=== PATIENT | female | born 1945 | race Caucasian/White ===

== ENCOUNTER 2023-12-03 15:03 | Outpatient (AMB) | payer MEDICARE, SELFPAY ==
--- NOTE | 2023-12-03 15:23 | MHC.PC.OV ---
Vital Signs 12/03/23 15:25 Height 5 ft 2.5 in Weight 141 lb 8 oz BMI 25.5 BP 144/72 H Blood Pressure Location Lt brachial Position Sitting Pulse 62 Pulse Source Pulse Oximeter Intake Visit Reasons: BRIANNA from [facility] Intake Note: Patient is here as a transfer from [facility]. Allergies penicillin V Allergy (Unknown, Verified 12/03/23 15:28) unknown Tobacco use date assessed: 12/03/23 Fall risk assessment: No Falls in past year Last assessed Fall Risk: 12/03/23 Dental Screening Dental Screen Date: 12/03/23 Did you have a dental visit in the last 12 months?: Yes Did you have a dental problem in the last 6 months where you did not have access to dental care?: No Was dental information given to patient?: Patient has dentist HPI HPI Comments History of Present Illness Details This is a 77-year-old female with a past medical history of hypertension, hyperlipidemia, type 2 diabetes, paroxysmal atrial fibrillation, GERD and anemia presenting to transfer from my practice at [facility]. At her visit on 09/20/2023 at [facility] we discussed pressure and tension on the right side of her neck radiating to the back of her head that started 3-4 months ago. Heat helped. She also described as a whooshing sound in her ear for just that week. This has since resolved, but because of her symptoms a CTA of the head and neck was ordered. CT angio head and neck completed 10/18/2023 showed no cut off of the major branches of the intracranial arteries. There are focal areas of moderate to severe stenosis at the A2 segment of the left BRIT and moderate stenosis at the right P1-P2 junction. There was no significant internal carotid artery stenosis or vertebral artery stenosis. Multilevel cervical spondylosis was noted which explains her symptoms. She is taking tizanidine as needed at night which helps. Type 2 diabetes is treated with Glipizide and metformin. Her last hemoglobin A1c in September was 6.5%. She has annual eye exams at [facility]. Cardiovascular- followed by Dr. Acuña for atrial fibrillation. She has seen Dr. Lovell in the past for PVD. Denies palpitations, chest pain or shortness of breath. Her current regimen is amlodipine, Eliquis, atenolol, lisinopril, pravastatin. GERD is treated by Dr. Seo. She is up-to-date with colonoscopy and EGD. On her last scope they found a small erosion which they believe was contributing to anemia. It was not actively bleeding. She takes omeprazole. She avoids NSAIDs. She is on vitamin B12 injections. She is due to check her B12 level. Overactive bladder is treated with Myrbetriq. She has seen Dr. Omar bruce for this. She has osteoarthritis in her knees. She had a left knee replacement with Dr. Chaidez. ROS: Constitutional: No unexplained weight loss, fever, chills, fatigue or night sweats. Eyes: No vision changes, blurry vision, double vision Respiratory: No shortness of breath, cough or sputum production. Cardiovascular: No chest pain, chest pressure or chest discomfort. No palpitations. +stable lower extremity edema-wears compression stockings. Gastrointestinal: No anorexia, nausea, vomiting or diarrhea. No abdominal pain or blood in stool. Neurologic: No headache, dizziness, syncope Physical exam: Constitutional: Alert, in no distress. Head: Normocephalic. Eyes: Pupils are equal, round and reactive to light. Neck: Supple, Full range of motion. No lymphadenopathy. Respiratory: Clear to auscultation. Cardiovascular: S1 S2 regular. Systolic murmur. Extremities: Warm and well perfused. No clubbing, cyanosis or edema. Bilateral 1+ lower extremity edema. [facility] Medical History (Updated 12/03/23 @ 16:46 by MARIELENA Wbeer) PVD (peripheral vascular disease) Atherosclerosis Vitamin B12 deficiency Controlled type 2 diabetes mellitus Paroxysmal atrial fibrillation Overactive bladder Essential hypertension Pure hypercholesterolemia Heart murmur Chronic GERD Cervical spondylosis Anemia Cataract T/A hypertrophy Headache Incontinence Gastrointestinal disorder Diabetes Afib Heart disease Palpitations High blood pressure Surgical History (Updated 12/03/23 @ 16:41 by MARIELENA Weber) History of cardiac radiofrequency ablation History of left knee replacement H/O colonoscopy H/O: hysterectomy H/O vitrectomy H/O tubal ligation Family History (Updated 12/03/23 @ 15:38 by Catherine Monsivais CMA) Maternal Grandmother Breast cancer Brother Breast cancer Social History (Updated 12/03/23 @ 15:43 by Catherine Monsivais CMA) Household Members: Spouse Both parents involved: No Caregiver staying overnight: No Housing: House Are you a primary acute care nurse practitioner to a significant other at home: No Do you presently have visiting nurse or other home services: No 75 years or older and lives alone: No Alcohol intake: current Alcohol intake frequency: holidays/special occasions only Patient Tobacco Use Status: Never used Tobacco e-Cigarette/Vaping Use: Never Used service: No Current occupational status: retired Cognitive needs: No Hearing needs: No Vision needs: No Questionnaire PHQ-9 Over the last 2 weeks, how often have you been bothered by any of the following problems? 1. Little interest or pleasure in doing things: not at all 2. Feeling down, depressed, or hopeless: not at all 3. Trouble falling or staying asleep, or sleeping too much: not at all 4. Feeling tired or having little energy: more than half the days 5. Poor appetite or overeating: several days 6. Feeling bad about yourself - or that you are a failure or have let yourself or your family down: several days 7. Trouble concentrating on things, such as reading the newspaper or watching television: not at all 8. Moving or speaking so slowly that other people could have noticed. Or the opposite - being so fidgety or restless that you have been moving around a lot more than usual: not at all 9. Thoughts that you would be better off or of hurting yourself in some way: not at all Total score: 4 Depression Screening Interpretation: Negative Depression Screening Done: Yes Source: Developed by Drs. Ottoniel Duran, Elana Young, Pierre Garsia and colleagues, with an educational moises from [employer]. Thrive Questionnaire Date Thrive assessed: 12/03/23 I am a: Patient What is your living situation today?: I have a steady place to live Within the past 12 months, did the food you bought not last and you didn't have the money to get more?: Never true Within the past 12 months, did you worry whether your food would run out before you got money to buy more?: Never true Do you have trouble paying for medicines?: No Do you have trouble getting transportation to medical appointments?: No Do you have trouble paying your heating and electricity bill?: No Do you have trouble taking care of your child, family member or friend?: No Do you have trouble with day-to-day activities such as bathing, preparing meals, shopping, managing finances, etc.?: No Are you currently unemployed and looking for a job?: No Are you interested in more education?: No THRIVE Score: 0 LUIS-7 AMB Questionnaire LUIS-7 Date LUIS - 7 assessed: 12/03/23 Feeling nervous, anxious, or on edge: 0 = Not at all Not being able to stop or control worryin = Not at all Worrying too much about different things: 0 = Not at all Trouble relaxin = Not at all Being so restless that it is hard to sit still: 0 = Not at all Becoming easily annoyed or irritable: 0 = Not at all Feeling afraid as if something awful might happen: 0 = Not at all Total LUIS-7 score (0-4 normal; 5-9 mild; 10-14 moderate; 15-21 severe): 0 Source: Developed by Drs. Ottoniel Duran, Elana Young, Pierre Garsia and colleagues, with an educational moises from [employer]. Physical exam (Primary Care) Vital Signs: Last Vital Signs Pulse 62 12/03/23 15:25 BP 144/72 H 12/03/23 15:25 BMI result Body Mass Index 25.5 Tobacco/Smoking Status: Tobacco use Status Tobacco use date assessed 12/03/23 12/03/23 15:48 Patient Tobacco Use Status Never used Tobacco 12/03/23 15:48 e-Cigarette/Vaping Use Never Used 12/03/23 15:48 PHQ-9: PHQ-9 Score PHQ-9: Total score 4 12/03/23 15:48 Depression Screening Interpretation: Negative Thrive Assessment: Date of Thrive Assessment Date Thrive assessed 12/03/23 12/03/23 15:48 Assessment and Plan Assessment & Plan (1) Atherosclerosis: Comment: There are focal areas of moderate to severe stenosis at the A2 segment of the left BRIT and moderate stenosis at the right P1-P2 junctio on CTA 10/18/23 Code(s): I70.90 - Unspecified atherosclerosis (2) Vitamin B12 deficiency: Code(s): E53.8 - Deficiency of other specified B group vitamins (3) Controlled type 2 diabetes mellitus: Code(s): E11.9 - Type 2 diabetes mellitus without complications Qualifiers: Diabetes mellitus alf insulin use: without adjunct faculty for medical terminology use Diabetes mellitus complication status: with circulatory complication Diabetes mellitus complication detail: with other circulatory complications Qualified Code(s): E11.59 - Type 2 diabetes mellitus with other circulatory complications (4) Paroxysmal atrial fibrillation: Code(s): I48.0 - Paroxysmal atrial fibrillation (5) Essential hypertension: Code(s): I10 - Essential (primary) hypertension (6) Pure hypercholesterolemia: Code(s): E78.00 - Pure hypercholesterolemia, unspecified (7) Anemia: Code(s): D64.9 - Anemia, unspecified Qualifiers: Anemia type: B12 deficiency Vitamin B12 deficiency anemia type: other B12 deficiency Qualified Code(s): D51.8 - Other vitamin B12 deficiency anemias Plan Offered physical therapy for cervical spondylosis and neck stiffness. Declined for now. She can apply heat and do home stretches. Tizanidine okay as needed. Do not drive or operate heavy machinery on muscle relaxant. Continue current medications. BP is elevated in office. At home today it was 132/71. She has white coat HTN. Return for fasting labs in 2 weeks. Check B12 level at this time and continue injections. Will refer back to Dr. Lovell for PVD and for atherosclerosis seen on recent CTA though I suspect medical management will be recommended over invasive procedure. Follow up in 4 months. Orders: Orders Lipid Panel Today D51.8 - Other vitamin B12 deficiency anemias, E11.59 - Type 2 diabetes mellitus with other circulatory complications, E53.8 - Deficiency of other specified B group vitamins, E78.00 - Pure hypercholesterolemia, unspecified, I10 - Essential (primary) hypertension, I70.90 - Unspecified atherosclerosis, I73.9 - Peripheral vascular disease, unspecified Hemoglobin A1c Today D51.8 - Other vitamin B12 deficiency anemias, E11.59 - Type 2 diabetes mellitus with other circulatory complications, E53.8 - Deficiency of other specified B group vitamins, E78.00 - Pure hypercholesterolemia, unspecified, I10 - Essential (primary) hypertension, I70.90 - Unspecified atherosclerosis, I73.9 - Peripheral vascular disease, unspecified Complete Blood Count no Diff Today D51.8 - Other vitamin B12 deficiency anemias, E11.59 - Type 2 diabetes mellitus with other circulatory complications, E53.8 - Deficiency of other specified B group vitamins, E78.00 - Pure hypercholesterolemia, unspecified, I10 - Essential (primary) hypertension, I70.90 - Unspecified atherosclerosis, I73.9 - Peripheral vascular disease, unspecified Vitamin B12 Today D51.8 - Other vitamin B12 deficiency anemias, E11.59 - Type 2 diabetes mellitus with other circulatory complications, E53.8 - Deficiency of other specified B group vitamins, E78.00 - Pure hypercholesterolemia, unspecified, I10 - Essential (primary) hypertension, I70.90 - Unspecified atherosclerosis, I73.9 - Peripheral vascular disease, unspecified Comprehensive Met. Panel Today D51.8 - Other vitamin B12 deficiency anemias, E11.59 - Type 2 diabetes mellitus with other circulatory complications, E53.8 - Deficiency of other specified B group vitamins, E78.00 - Pure hypercholesterolemia, unspecified, I10 - Essential (primary) hypertension, I70.90 - Unspecified atherosclerosis, I73.9 - Peripheral vascular disease, unspecified Referrals Cardiology Referral D51.8 - Other vitamin B12 deficiency anemias, E11.59 - Type 2 diabetes mellitus with other circulatory complications, E53.8 - Deficiency of other specified B group vitamins, E78.00 - Pure hypercholesterolemia, unspecified, I10 - Essential (primary) hypertension, I70.90 - Unspecified atherosclerosis, I73.9 - Peripheral vascular disease, unspecified Coding Level of Care Code Est Pt Level 4 (02235) Complex EM visit Add On G2211 Diagnoses Atherosclerosis I70.90 Vitamin B12 deficiency E53.8 Controlled type 2 diabetes mellitus with other circulatory complication, without long-term current use of insulin E11.59 Diabetes mellitus adjunct faculty for medical terminology insulin use: without alf use Diabetes mellitus complication status: with circulatory complication Diabetes mellitus complication detail: with other circulatory complications Paroxysmal atrial fibrillation I48.0 Essential hypertension I10 Pure hypercholesterolemia E78.00 Other vitamin B12 deficiency anemia D51.8 Anemia type: B12 deficiency Vitamin B12 deficiency anemia type: other B12 deficiency
[2023-12-03 15:25] VITALS: BP 144/72; PULSE 62; BMI 25.5
== END 2023-12-03 16:18 | disposition home or self-care (01) ==
PROVIDERS: PCP Physician Assistant Medical; Visit Provider Physician Assistant Medical
DX: I70.90 Unspecified atherosclerosis (principal); E53.8 Deficiency of other specified B group vitamins; E11.59 Type 2 diabetes mellitus with other circulatory complications; I48.0 Paroxysmal atrial fibrillation; I10 Essential (primary) hypertension; E78.00 Pure hypercholesterolemia, unspecified; D51.8 Other vitamin B12 deficiency anemias
CPT/HCPCS: 99214; G2211

== ENCOUNTER 2024-04-03 09:12 | Outpatient (AMB) | payer MEDICARE, SELFPAY ==
--- NOTE | 2024-04-03 09:30 | A.OFFPC_ITS ---
Vital Signs 04/03/24 09:34 Height 5 ft 2.5 in Weight 137 lb 6 oz BMI 24.7 BP 120/64 Blood Pressure Location Rt brachial Position Sitting Respiration 14 Pulse 73 Pulse Source Pulse Oximeter Pulse Oximetry (%) 95 Oxygen Delivery Method Room Air Intake Visit Reasons: Diabetes f/u Intake Note: f/u dm Allergies ciprofloxacin Allergy (Severe, Verified 04/03/24 09:32) Unresponsive penicillin V Allergy (Unknown, Verified 04/03/24 09:32) Rash Tobacco use date assessed: 12/03/23 Dental Screening Dental Screen Date: 12/03/23 HPI HPI Comments History of Present Illness Details This is a 78-year-old female with a past medical history of hypertension, hyperlipidemia, type 2 diabetes, paroxysmal atrial fibrillation, GERD and anemia presenting for follow up. She is accompanied by her . She called the office for a referral to [facility] after she fell on 03/23/2024 fracturing her right foot and her left finger. Her hand is casted now. They said she will not need surgery for her finger fracture, but she will need physical therapy once the cast is removed. She is having a CT scan of her foot next week for further evaluation. Type 2 diabetes is treated with Glipizide and metformin. Her last hemoglobin A1c in September was 6.5%. She has annual eye exams at [facility]. She had blood work at [facility] this Sunday, but the results are not available yet. Cardiovascular- followed by Dr. Acuña for atrial fibrillation. She sees Dr. Lovell for PVD. She endorses occasional palpitations brought on by stress. No chest pain or syncope. Her current regimen is amlodipine, Eliquis, atenolol, lisinopril, pravastatin. GERD is treated by Dr. Maldonado. She is up-to-date with colonoscopy and EGD. On her last scope they found a small erosion which they believe was contributing to anemia. It was not actively bleeding. She takes omeprazole. She avoids NSAIDs. She is on B12 supplementation. Overactive bladder is treated with Myrbetriq. She has seen Dr. Monae for this. She has osteoarthritis in her knees. She had a left knee replacement with Dr. Chaidez. ROS: Constitutional: No unexplained weight loss, fever, chills, fatigue or night sweats. Eyes: No vision changes, blurry vision, double vision Respiratory: No shortness of breath, cough or sputum production. Cardiovascular: No chest pain, chest pressure or chest discomfort.+stable lower extremity edema-wears compression stockings. Gastrointestinal: No anorexia, nausea, vomiting or diarrhea. No abdominal pain or blood in stool. Neurologic: No headache, dizziness, syncope Physical exam: Constitutional: Alert, in no distress. Head: Normocephalic. Eyes: Pupils are equal, round and reactive to light. Neck: Supple, Full range of motion. No lymphadenopathy. Respiratory: Clear to auscultation. Cardiovascular: S1 S2 regular. Systolic murmur. Extremities: Warm and well perfused. No clubbing, cyanosis or edema. Bilateral 1+ lower extremity edema. Left hand is casted. [facility] Medical History (Updated 12/03/23 @ 16:46 by MARIELENA Weber) PVD (peripheral vascular disease) Atherosclerosis Vitamin B12 deficiency Controlled type 2 diabetes mellitus Paroxysmal atrial fibrillation Overactive bladder Essential hypertension Pure hypercholesterolemia Heart murmur Chronic GERD Cervical spondylosis Anemia Cataract T/A hypertrophy Headache Incontinence Gastrointestinal disorder Diabetes Afib Heart disease Palpitations High blood pressure Surgical History (Updated 12/03/23 @ 16:41 by MARIELENA Weber) History of cardiac radiofrequency ablation History of left knee replacement H/O colonoscopy H/O: hysterectomy H/O vitrectomy H/O tubal ligation Family History (Updated 12/03/23 @ 15:38 by Catherine Monsivais CMA) Maternal Grandmother Breast cancer Brother Breast cancer Social History (Updated 12/03/23 @ 15:43 by Catherine Monsivais [facility]) Household Members: Spouse Both parents involved: No Caregiver staying overnight: No Housing: House Are you a primary care program director to a significant other at home: No Do you presently have visiting nurse or other home services: No 75 years or older and lives alone: No Alcohol intake: current Alcohol intake frequency: holidays/special occasions only Patient Tobacco Use Status: Never used Tobacco e-Cigarette/Vaping Use: Never Used service: No Current occupational status: retired Cognitive needs: No Hearing needs: No Vision needs: No Questionnaire PHQ-9 Over the last 2 weeks, how often have you been bothered by any of the following problems? 1. Little interest or pleasure in doing things: not at all 2. Feeling down, depressed, or hopeless: not at all 3. Trouble falling or staying asleep, or sleeping too much: not at all 4. Feeling tired or having little energy: not at all 5. Poor appetite or overeating: not at all 6. Feeling bad about yourself - or that you are a failure or have let yourself or your family down: not at all 7. Trouble concentrating on things, such as reading the newspaper or watching television: not at all 8. Moving or speaking so slowly that other people could have noticed. Or the opposite - being so fidgety or restless that you have been moving around a lot more than usual: not at all 9. Thoughts that you would be better off or of hurting yourself in some way: not at all Total score: 0 Source: Developed by Drs. Ottoniel Duran, Elana Young, Pierre Garsia and colleagues, with an educational moises from [employer]. Thrive Questionnaire Date Thrive assessed: 12/03/23 I am a: Patient What is your living situation today?: I have a steady place to live Within the past 12 months, did the food you bought not last and you didn't have the money to get more?: I choose not to answer this question Within the past 12 months, did you worry whether your food would run out before you got money to buy more?: I choose not to answer this question Do you have trouble paying for medicines?: No Do you have trouble getting transportation to medical appointments?: No Do you have trouble paying your heating and electricity bill?: I choose not to answer this question Do you have trouble taking care of your child, family member or friend?: No Do you have trouble with day-to-day activities such as bathing, preparing meals, shopping, managing finances, etc.?: No Are you currently unemployed and looking for a job?: No Are you interested in more education?: No Please select the resources that you would like help with: None Currently or been in a relationship where the following occur: No concerns reported THRIVE Score: 0 AUDIT C Alcohol Use Questionnaire (AUDIT-C) 1. How often do you have a drink containing alcohol?: Never Total Score: 0 LUIS-7 AMB Questionnaire LUIS-7 Date LUIS - 7 assessed: 12/03/23 Feeling nervous, anxious, or on edge: 0 = Not at all Not being able to stop or control worryin = Not at all Worrying too much about different things: 0 = Not at all Trouble relaxin = Not at all Being so restless that it is hard to sit still: 0 = Not at all Becoming easily annoyed or irritable: 0 = Not at all Feeling afraid as if something awful might happen: 0 = Not at all Total LUIS-7 score (0-4 normal; 5-9 mild; 10-14 moderate; 15-21 severe): 0 Source: Developed by Drs. Ottoniel Duran, Elana Young, Pierre Garsia and colleagues, with an educational moises from [employer]. Physical exam (Primary Care) Vital Signs: Last Vital Signs Pulse 73 04/03/24 09:34 Resp 14 04/03/24 09:34 BP 120/64 04/03/24 09:34 Pulse Ox 95 04/03/24 09:34 Oxygen Delivery Method Room Air 04/03/24 09:34 BMI result Body Mass Index 24.7 Tobacco/Smoking Status: Tobacco use Status Tobacco use date assessed 12/03/23 04/03/24 09:30 Patient Tobacco Use Status Never used Tobacco 04/03/24 09:30 e-Cigarette/Vaping Use Never Used 04/03/24 09:30 PHQ-9: PHQ-9 Score PHQ-9: Total score 0 04/03/24 09:46 Thrive Assessment: Date of Thrive Assessment Date Thrive assessed 12/03/23 04/03/24 09:30 Currently or been in a relationship where the following occur: No concerns reported Coding Level of Care Code Est Pt Level 4 (21801) Complex EM visit Add On G2211 Diagnoses Atherosclerosis I70.90 Vitamin B12 deficiency E53.8 Controlled type 2 diabetes mellitus with other circulatory complication, without long-term current use of insulin E11.59 Diabetes mellitus emt intermediate insulin use: without emt intermediate use Diabetes mellitus complication status: with circulatory complication Diabetes mellitus complication detail: with other circulatory complications Paroxysmal atrial fibrillation I48.0 Overactive bladder N32.81 Essential hypertension I10 Pure hypercholesterolemia E78.00 Chronic GERD K21.9 Other vitamin B12 deficiency anemia D51.8 Anemia type: B12 deficiency Vitamin B12 deficiency anemia type: other B12 deficiency Assessment & Plan Assessment & Plan (1) Atherosclerosis: Comment: There are focal areas of moderate to severe stenosis at the A2 segment of the left BRIT and moderate stenosis at the right P1-P2 junctio on CTA 10/18/23 Code(s): I70.90 - Unspecified atherosclerosis Category: Medical (2) Vitamin B12 deficiency: Code(s): E53.8 - Deficiency of other specified B group vitamins Category: Medical Plan: Continue B12. (3) Controlled type 2 diabetes mellitus: Code(s): E11.9 - Type 2 diabetes mellitus without complications Category: Medical Qualifiers: Diabetes mellitus emt intermediate insulin use: without prison use Diabetes mellitus complication status: with circulatory complication Diabetes mellitus complication detail: with other circulatory complications Qualified Code(s): E11.59 - Type 2 diabetes mellitus with other circulatory complications Plan: Awaiting lab results. Continue glipizide and metformin. (4) Paroxysmal atrial fibrillation: Code(s): I48.0 - Paroxysmal atrial fibrillation Category: Medical Plan: Followed by Cardiology. Anticoagulated on Eliquis. (5) Overactive bladder: Code(s): N32.81 - Overactive bladder Category: Medical Plan: Continue Myrbetriq. Avoid caffeine. (6) Essential hypertension: Code(s): I10 - Essential (primary) hypertension Category: Medical Plan: Controlled. Continue current medication regimen and low-sodium diet. (7) Pure hypercholesterolemia: Code(s): E78.00 - Pure hypercholesterolemia, unspecified Category: Medical Plan: Awaiting results of recent blood work. Patient on statin. Would like her to consider switching to rosuvastatin or atorvastatin given atherosclerotic vascular disease. (8) Chronic GERD: Code(s): K21.9 - Gastro-esophageal reflux disease without esophagitis Category: Medical Plan: Continue omeprazole 20 mg daily. Dietary recommendations reviewed. Avoid NSAIDs. (9) Anemia: Code(s): D64.9 - Anemia, unspecified Category: Medical Qualifiers: Anemia type: B12 deficiency Vitamin B12 deficiency anemia type: other B12 deficiency Qualified Code(s): D51.8 - Other vitamin B12 deficiency anemias Plan: Monitor. Lab results requested. Continue B12 supplementation. Plan Follow up in 3 months for diabetes. Medications: New glipizide ER 2.5 mg PO DAILY 90 tabs 3RF
[2024-04-03 09:34] VITALS: BP 120/64; PULSE 73; RESP 14; O2SAT 95; BMI 24.7
== END 2024-04-03 12:08 | disposition home or self-care (01) ==
PROVIDERS: PCP Physician Assistant Medical; Visit Provider Physician Assistant Medical
DX: E11.59 Type 2 diabetes mellitus with other circulatory complications (principal); I48.0 Paroxysmal atrial fibrillation; I70.90 Unspecified atherosclerosis; E53.8 Deficiency of other specified B group vitamins; N32.81 Overactive bladder; I10 Essential (primary) hypertension; E78.00 Pure hypercholesterolemia, unspecified; K21.9 Gastro-esophageal reflux disease without esophagitis; D51.8 Other vitamin B12 deficiency anemias

== ENCOUNTER → 2024-04-03 09:12 | Outpatient (BNVA) | payer MEDICARE, SELFPAY | PROVIDERS: PCP Physician Assistant Medical; Visit Provider Physician Assistant Medical | DX: E11.59 Type 2 diabetes mellitus with other circulatory complications (principal); I70.90 Unspecified atherosclerosis; D51.8 Other vitamin B12 deficiency anemias; I10 Essential (primary) hypertension; E78.5 Hyperlipidemia, unspecified; I48.0 Paroxysmal atrial fibrillation; I73.9 Peripheral vascular disease, unspecified; K21.9 Gastro-esophageal reflux disease without esophagitis; N32.81 Overactive bladder; Z79.84 Long term (current) use of oral hypoglycemic drugs; Z79.899 Other long term (current) drug therapy; E78.00 Pure hypercholesterolemia, unspecified | CPT/HCPCS: 96127; 99212 ==

== ENCOUNTER 2024-07-10 09:55 | Outpatient (AMB) | payer MEDICARE, SELFPAY ==
--- NOTE | 2024-07-10 10:21 | MHC.PC.OV ---
Vital Signs 07/10/24 10:26 Height 5 ft 2.5 in Weight 137 lb 2 oz BMI 24.7 BP 138/74 Blood Pressure Location Rt brachial Position Sitting Respiration 14 Pulse 63 Pulse Source Pulse Oximeter Pulse Oximetry (%) 98 Oxygen Delivery Method Room Air Intake Visit Reasons: f/u HTN Intake Note: Follow up HTN. 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 She is accompanied by her . She finished physical therapy after fracturing her left finger. The CT scan of her right foot did not demonstrate any fracture so she did not end up needing surgery. Type 2 diabetes is treated with Glipizide and metformin. Her last hemoglobin A1c in 04/09/2024 was 7.5% so we increased her dose of glipizide. Denies hypoglycemia.. She has annual eye exams at [facility]. She will have blood work done today. Cardiovascular- followed by Dr. Acuña for atrial fibrillation. She sees Dr. Lovell for PVD. No chest pain, recent palpitations or syncope. Her current regimen is amlodipine, Eliquis, atenolol, lisinopril, pravastatin. GERD is treated by Dr. Maldonado. She is up-to-date with colonoscopy and EGD. On her last scope they found a small erosion which they believe was contributing to anemia. It was not actively bleeding. She takes omeprazole. She avoids NSAIDs. She restarted an oral B12 supplement a month ago. Overactive bladder is treated with Myrbetriq. She has seen Dr. Monae for this. He has ordered an ultrasound due to one episode of dark colored urine. She is planning to have this done. She has osteoarthritis in her knees. She had a left knee replacement with Dr. Chaidez. I recommended a high dose flu vaccine. ROS: Constitutional: No unexplained weight loss, fever, chills, fatigue or night sweats. Eyes: No vision changes, blurry vision, double vision Respiratory: No shortness of breath, cough or sputum production. Cardiovascular: No chest pain, chest pressure or chest discomfort.+stable lower extremity edema-wears compression stockings. Gastrointestinal: No anorexia, nausea, vomiting or diarrhea. No abdominal pain or blood in stool. Neurologic: No headache, dizziness, syncope Physical exam: Constitutional: Alert, in no distress. Head: Normocephalic. Eyes: Pupils are equal, round and reactive to light. Neck: Supple, Full range of motion. No lymphadenopathy. Respiratory: Clear to auscultation. Cardiovascular: S1 S2 regular. Systolic murmur. Extremities: Warm and well perfused. [facility] Medical History (Updated 12/03/23 @ 16:46 by MARIELENA Weber) PVD (peripheral vascular disease) Atherosclerosis Vitamin B12 deficiency Controlled type 2 diabetes mellitus Paroxysmal atrial fibrillation Overactive bladder Essential hypertension Pure hypercholesterolemia Heart murmur Chronic GERD Cervical spondylosis Anemia Cataract T/A hypertrophy Headache Incontinence Gastrointestinal disorder Diabetes Afib Heart disease Palpitations High blood pressure Surgical History History of cardiac radiofrequency ablation History of left knee replacement H/O colonoscopy H/O: hysterectomy H/O vitrectomy H/O tubal ligation Family History Maternal Grandmother Breast cancer Brother Breast cancer Social History (Updated 07/10/24 @ 10:28 by Myrtle Desai CMA) Household Members: Spouse Housing: House Are you a primary child caregiver private home to a significant other at home: No Do you presently have visiting nurse or other home services: No Alcohol intake: current Alcohol intake frequency: holidays/special occasions only Patient Tobacco Use Status: Never used Tobacco e-Cigarette/Vaping Use: Never Used service: No Current occupational status: retired Cognitive needs: No Hearing needs: No Vision needs: No Questionnaire Thrive Questionnaire Date Thrive assessed: 07/03/24 I am a: Patient What is your living situation today?: I choose not to answer this question Within the past 12 months, did the food you bought not last and you didn't have the money to get more?: I choose not to answer this question Within the past 12 months, did you worry whether your food would run out before you got money to buy more?: I choose not to answer this question Do you have trouble paying for medicines?: I choose not to answer this question Do you have trouble getting transportation to medical appointments?: I choose not to answer this question Do you have trouble paying your heating and electricity bill?: I choose not to answer this question Do you have trouble taking care of your child, family member or friend?: I choose not to answer this question Do you have trouble with day-to-day activities such as bathing, preparing meals, shopping, managing finances, etc.?: I choose not to answer this question Are you currently unemployed and looking for a job?: I choose not to answer this question Are you interested in more education?: No Please select the resources that you would like help with: None Currently or been in a relationship where the following occur: I choose not to answer THRIVE Score: 0 AUDIT C Alcohol Use Questionnaire (AUDIT-C) 1. How often do you have a drink containing alcohol?: Never Total Score: 0 LUIS-7 AMB Questionnaire LUIS-7 Date LUIS - 7 assessed: 12/03/23 Feeling nervous, anxious, or on edge: 0 = Not at all Not being able to stop or control worryin = Not at all Worrying too much about different things: 0 = Not at all Trouble relaxin = Not at all Being so restless that it is hard to sit still: 0 = Not at all Becoming easily annoyed or irritable: 0 = Not at all Feeling afraid as if something awful might happen: 0 = Not at all Total LUIS-7 score (0-4 normal; 5-9 mild; 10-14 moderate; 15-21 severe): 0 Source: Developed by Drs. Ottoniel Duran, Elana Young, Pierre Garsia and colleagues, with an educational moises from [employer]. Physical exam (Primary Care) Vital Signs: Last Vital Signs Pulse 63 07/10/24 10:26 Resp 14 07/10/24 10:26 BP 138/74 07/10/24 10:26 Pulse Ox 98 07/10/24 10:26 Oxygen Delivery Method Room Air 07/10/24 10:26 BMI result Body Mass Index 24.7 Tobacco/Smoking Status: Tobacco use Status Tobacco use date assessed 12/03/23 07/10/24 10:28 Patient Tobacco Use Status Never used Tobacco 07/10/24 10:28 e-Cigarette/Vaping Use Never Used 07/10/24 10:28 Thrive Assessment: Date of Thrive Assessment Date Thrive assessed 07/03/24 07/10/24 10:28 Currently or been in a relationship where the following occur: I choose not to answer Coding Level of Care Code Est Pt Level 4 (78529) Complex EM visit Add On G2211 Diagnoses Atherosclerosis I70.90 Vitamin B12 deficiency E53.8 Controlled type 2 diabetes mellitus with other circulatory complication, without long-term current use of insulin E11.59 Diabetes mellitus complication detail: with other circulatory complications Diabetes mellitus complication status: with circulatory complication Diabetes mellitus halfway insulin use: without equipment operator intermodal yard use Paroxysmal atrial fibrillation I48.0 Overactive bladder N32.81 Essential hypertension I10 Pure hypercholesterolemia E78.00 Chronic GERD K21.9 Other vitamin B12 deficiency anemia D51.8 Anemia type: B12 deficiency Vitamin B12 deficiency anemia type: other B12 deficiency Assessment & Plan Assessment & Plan (1) Atherosclerosis: Comment: There are focal areas of moderate to severe stenosis at the A2 segment of the left BRIT and moderate stenosis at the right P1-P2 junctio on CTA 10/18/23 Code(s): I70.90 - Unspecified atherosclerosis Category: Medical (2) Vitamin B12 deficiency: Code(s): E53.8 - Deficiency of other specified B group vitamins Category: Medical Plan: Continue B12. (3) Controlled type 2 diabetes mellitus: Code(s): E11.9 - Type 2 diabetes mellitus without complications Category: Medical Qualifiers: Diabetes mellitus complication detail: with other circulatory complications Diabetes mellitus complication status: with circulatory complication Diabetes mellitus halfway insulin use: without halfway use Qualified Code(s): E11.59 - Type 2 diabetes mellitus with other circulatory complications Plan: Check labs. Continue glipizide and metformin. (4) Paroxysmal atrial fibrillation: Code(s): I48.0 - Paroxysmal atrial fibrillation Category: Medical Plan: Followed by Cardiology. Anticoagulated on Eliquis. (5) Overactive bladder: Code(s): N32.81 - Overactive bladder Category: Medical Plan: Continue Myrbetriq. Avoid caffeine. (6) Essential hypertension: Code(s): I10 - Essential (primary) hypertension Category: Medical Plan: The patient's blood pressure is mildly elevated today. She said she was under a lot of stress this morning rushing to get here and answering the questions at the check in. She will mail in her home blood pressure readings this month. Continue current medication regimen and low-sodium diet. (7) Pure hypercholesterolemia: Code(s): E78.00 - Pure hypercholesterolemia, unspecified Category: Medical Plan: Continue statin. Recommended avoidance of smoking. Recommended Mediterranean diet. (8) Chronic GERD: Code(s): K21.9 - Gastro-esophageal reflux disease without esophagitis Category: Medical Plan: Continue omeprazole 20 mg daily. Dietary recommendations reviewed. Avoid NSAIDs. (9) Anemia: Code(s): D64.9 - Anemia, unspecified Category: Medical Qualifiers: Anemia type: B12 deficiency Vitamin B12 deficiency anemia type: other B12 deficiency Qualified Code(s): D51.8 - Other vitamin B12 deficiency anemias Plan: Monitor. Check labs. Continue B12 supplementation. Plan Follow up in 3 months for diabetes. Orders: Orders Complete Blood Count Auto Diff Today E11.59 - Type 2 diabetes mellitus with other circulatory complications, E53.8 - Deficiency of other specified B group vitamins Vitamin B12 Today E11.59 - Type 2 diabetes mellitus with other circulatory complications, E53.8 - Deficiency of other specified B group vitamins, Z91.89 - Other specified personal risk factors, not elsewhere classified IRON PROFILE Today E53.8 - Deficiency of other specified B group vitamins Hemoglobin A1c Today E11.59 - Type 2 diabetes mellitus with other circulatory complications, E11.9 - Type 2 diabetes mellitus without complications, E53.8 - Deficiency of other specified B group vitamins Basic Metabolic Panel Today E11.59 - Type 2 diabetes mellitus with other circulatory complications, E53.8 - Deficiency of other specified B group vitamins
[2024-07-10 10:26] VITALS: BP 138/74; PULSE 63; RESP 14; O2SAT 98; BMI 24.7
--- OUTSIDE RECORDS SUMMARY | 2024-07-10 10:47 | XMS_ITS | Clinical Summary ---
Author Organization [facility] Workle Address [address] [place] [address] Phone Care Team Providers Care Internet Application Developer Name Role Phone Sarah Coello Primary Care Provider [phone] Allergies Active Allergy Reactions Criticality Noted Date Comments Atorvastatin Pain 10/31/2014 Ciprofloxacin 03/16/2022 Other reaction(s): doesn't remember diarrhea Penicillins Rash High 09/13/2005 Age 6 and broke out on rash on legs. 10/03/17: positive intradermal testing to Pre pen Sulfamethoxazole-Trimethopr im 03/16/2022 Other reaction(s): doesn't remember Rash Medications amLODIPine (NORVASC) 5 mg tablet Take 1 tablet by mouth once daily 3 Active apixaban (Eliquis) 5 mg tablet Take 1 tablet by mouth twice daily 4 Active clindamycin (CLEOCIN) 300 mg capsule TAKE 2 CAPSULES BY MOUTH 1 HOUR BEFORE DENTAL APPOINTMENT AND 1 CAPSULE 4 HOURS AFTER APPOINTMENT 3 Active ferrous fumarate 324 mg (106 mg iron) tablet Take 1 Tablet by mouth daily. Active glipiZIDE (GLUCOTROL XL) 2.5 mg 24 hr tablet Take 1 tablet by mouth once daily 3 Active lisinopril (PRINIVIL,ZESTR IL) 40 mg tablet Take 1 tablet by mouth once daily 3 Active metFORMIN XR (GLUCOPHAGE-XR) 500 mg 24 hr tablet Take 2 tablets by mouth twice daily 3 Active mirabegron (MYRBETRIQ) 50 mg tablet extended release 24 hr 24 hr tablet Take by mouth. Ac tive omeprazole (PriLOSEC) [address] capsule Take 1 capsule by mouth once daily 2 Active pravastatin (PRAVACHOL) 20 mg tablet Take 1 tablet by mouth once daily 3 Active FA/niacinamide/ cupric ox/Zn ox (NICOTINAMIDE ZCF ORAL) Take 500 mg by mouth daily. Active magnesium oxide (MAG-OX) 400 mg (241.3 elemental magnesium) tablet Take 1 tablet by mouth once daily 90 tablet 1 5 Active atenoloL (TENORMIN) 50 mg tablet Take 1 tablet by mouth once daily 90 tablet 5 Active Active Problems Problem Noted Date Diagnosed Date Atrial fibrillation 11/15/2020 Diverticulosis 02/10/2020 Hiatal hernia 02/10/2020 GI bleed 02/10/2020 Compression fracture of T12 vertebra 06/13/2019 B12 deficiency 10/01/2018 Iron deficiency anemia 10/01/2018 Chronic seasonal allergic rhinitis 09/06/2017 Lacunar infarction 05/03/2016 Controlled type 2 diabetes m ellitus without complication, without long-term current use of insulin 05/03/2016 HSV infection 07/06/2014 Osteopenia 04/20/2014 Compression fracture of T6 vertebra 04/20/2014 Valvular heart disease 08/08/2011 Overview (04/28/2024): Echo 2010: Impression: mild left atrial enlargement, mild to moderate aortic, mitral and tricuspid regurgitation, upper normal pulmonary systolic pressures and normal left ventricular systolic function. Repeat echocardiogram 2015 Hypertension 07/11/2006 Esophageal reflux 09/13/2005 Hyperlipemia 09/13/2005 Migraine without aura 09/13/2005 Overview (04/28/2024): negative CAT scan 2004, chronic IMO update Encounters Date Type Department Care Team Description 07/03/2024 Lab Requisition [facility] - Main Lab [address] [facility] [place] [address] Landon Monae MD Benign essential microscopic hematuria 06/26/2024 Lab Requisition [facility] - Main Lab [address] [facility] [place] [address] Landon Monae MD Urinary tract infection, site not specified from Last 3 Months Immunizations Name Administration Dates Next Due Influenza trivalent, 0.5mL ( Fluad) 65yo and older 05/17/2021,04/27/2020,03/25/2019,03/05 Influenza trivalent, 0.5mL, preservative free (Fluarix; FluLaval; Fluzone) ages 6mo and older (Afluria) 3 years and older 04/27/2015,02/20/2014,04/08/2013,03/28,01/31/2011,04/06/2010,02/25/2009 ,03/24/2008,03/08/2007 Moderna SARS-CoV-2 COVID-19, mRNA, LNP-S, preservative free 08/17/2020,07/21/2020 Pneumococcal conjugate 13 va lent (Prevnar 13, PCV13) 2mo and older 10/30/2014 Pneumococcal polysaccharide 23 valent (Pneumovax 23) 2yo and older 05/27/2012,03/08/2007 Td Tetanus diptheria (Tdvax) 7yo and older 05/22/2006 Tdap Tetanus diptheria acell ular pertussis (Boostrix; Adacel) 7yo and older 05/27/2012 Surgical History Surgery Date Site/Laterality Comments TUBAL LIGATION PROCEDURE: HISTORICAL TUBAL LIGATION TONSILLECTOMY ADENOIDECTOMY, BILATERAL MYRINGOTOMY AND TUBES PROCEDURE: WA TONSILLECTOMY & ADENOIDECTOMY <AGE 12 COLONOSCOPY 03/31/2010 PROCEDURE: WA COLONOSCOPY FLX DX W/COLLJ SPEC WHEN PFRMD OTHER SURGICAL HISTORY 10/30/2018 N/A PROCEDURE: COLONOSCOPY LESION REMOVAL; COMMENT: with EGD- Dr. Maldonado TOTAL KNEE ARTHROPLASTY 04/10/2022 Left PROCEDURE: WA ARTHRP KNE CONDYLE&PLATU MEDIAL&LAT COMPARTMENTS Medical History Medical History Date Comments Esophageal reflux 09/13/2005 DX:Esophageal reflux Hyperlipemia 09/13/2005 DX:Hyperlipemia Hypertension 07/11/2006 DX:Hypertension Valvular heart disease 08/08/2011 DX:Valvul ar heart disease; COMMENT: Echo 2010: Impression: mild left atrial enlargement, mild to moderate aortic, mitral and tricuspid regurgitation, upper normal pulmonary systolic pressures and normal left ventricular systolic function. Osteopenia 04/20/2014 DX:Osteopenia HSV infection 07/06/2014 DX:HSV infection DM (diabetes mellitus), type 2, uncontrolled 11/11/2007 DX:DM (diabetes mellitus), t ype 2, uncontrolled Compression fracture 04/20/2014 DX:Compress ion fracture Family History Medical History Relation Name Comments Other cancer Brother 1 skin cancer Squamous cell carcinoma Brother 1 boo ent describes what sounds like metastases that caused his demise Other: Crohn's disease Brother 2 Other: pul fibrosis Brother 3 Depression Father suicide/depress ion Breast cancer Other m cousin 60s Other: tonsil cancer Son 1 Relation Name Status Comments Brother 1 Brother 2 Brother 3 Brother 4 Alive 1 brother age 6 4, crohn's disease Father (Age 37) suicide Maternal Grandfather Maternal Grandmother 65 Mother (Age 76) Other m cousin 60s Alive Paternal Grandfather Paternal Grandmother Son 1 Son 2 Alive 4 sons, ages 38 ,35,33 and 27 all healthy Social History Tobacco Use Types Packs/Day Years Used Date Smoking Tobacco: Never Smokeless Tobacco: Never Alcohol Use Standard Drinks/Week Comments Yes 0 (1 standard drink = 0.6 oz pur e alcohol) Comments Unknown Sex and Gender Information Value Date Recorded Sex Assigned at Not on file Legal Sex Female 5:55 PM EST Gender Identity Not on file Sexual Orientation Not on file Obstetrics History Last Filed Vital Signs Vital Sign Reading Time Taken Comments Blood Pressure 124/68 12/21/2023 7:49 AM EDT Pulse 62 12/21/2023 7:49 AM EDT Temperature - - Respiratory Rate - - Oxygen Saturation - - Inhaled Oxygen Concentration - - Weight 63.5 kg (140 lb) 12/21/2023 7:49 AM EDT Height 157.5 cm (5' 2 ) 12/21/2023 7:49 AM EDT Body Mass Index 25.61 12/21/2023 7:49 AM EDT Plan of Treatment Upcoming Encounters Date Type Department Care Team (Late st Contact Info) Description 07/23/2024 9:00 AM EST Appointment Radiology Department - [address] [address] 08/05/2024 9:25 AM EDT Office Visit [facility] - [facility] [address] [facility] [address] [place] [phone] Tuan Acuña MD [address] [place] [address] Health Maintenance Due Date Last Done Comments Diabetes: Annual Foot Exam 1955 Diabetes: Annual Retina Eye Exam 1955 Zoster Vaccines (1 of 2) 1996 RSV Immunization Patients 60+ Years Old (1 - 1-dose 75+ series) 2021 Depression Screening 04/29/2022 Falls Risk Assessment 04/29/2022 Hepatitis C Screening 04/29/2022 Medicare Annual Wellness Visit 04/29/2022 Social Influencers of Health Screening 04/29/2022 Diabetes: Annual Urine Albumin-Creatinine Ratio (uACR) 04/30/2022 01/03/2021 DTaP,Tdap,and Td Vaccines (3 - Td or Tdap) 05/27/2022 05/27/2012, 05/22/2006 Diabetes: Blood Sugar Control Test (HGBA1C) 08/30/2022 03/01/2022 Diabetes: Annual GFR (Glomerular Filtration Rate) 03/01/2023 03/01/2022 Hypertension/CHF/CAD Annual BMP Blood Test 03/01/2023 03/01/2022 COVID-19 Vaccine ( season) 2024 08/17/2020, 07/21/2020 Influenza Vaccine (#1) 2024 , 04/27/2020, 03/25/2019, Additional history exists Cholesterol Screening (Lipid Panel) 03/01/2027 03/01/2022 Osteoporosis Screening (Bone Density Screening) 04/04/2032 04/04/2022, 07/30/2019 Pneumococcal Vaccine: 50+ Years Completed 10/30/2014, 05/27/2012, 03/08/2007 HIB Vaccines Aged Out No longer eligi ble based on patient's age to complete this topic HPV Vaccines Aged Out No longer eligi ble based on patient's age to complete this topic Hepatitis A Vaccines Aged Out No long er eligible based on patient's age to complete this topic Hepatitis B Vaccines Aged Out No long er eligible based on patient's age to complete this topic IPV Vaccines Aged Out No longer eligi ble based on patient's age to complete this topic MMR Vaccines Aged Out No longer eligi ble based on patient's age to complete this topic Meningococcal ACWY Vaccine Aged Out N o longer eligible based on patient's age to complete this topic Meningococcal B Vacine Aged Out No lo nger eligible based on patient's age to complete this topic RSV Immunization Patients Under 20 months Aged Out No longer eligible based on patient's age to complete this topic Varicella Vaccines Aged Out No longer eligible based on patient's age to complete this topic Procedures Procedure Name Priority Date/Time Associated Diagnosis Comments AP OUTSIDE CONSULT Routine 06/26/2024 12 :00 AM EST Benign essential microscopic hematuria CULTURE URINE Routine 06/26/2024 12:00 AM EST Urinary tract infection, site not specified MAGNESIUM Routine 06/16/2024 11:32 AM EST DXA BONE DENSITY STUDY 1+ SITS AXIAL SKEL Routine 04/04/2022 9:58 AM EST Encounter for screening for osteoporosis ANNUAL BMP BLOOD TEST Routine 03/01/2022 HEMOGLOBIN A1C Routine 03/01/2022 LIPID PANEL Routine 03/01/2022 URINE ALBUMIN CREATININE RATIO Routine 01/03/2021 from Last 3 Months or Most Recently Relevant to Health Maintenance Results * Anatomic pathology outside consult (06/26/2024 12:00 AM EST) Final Diagnosis A. Urine, Voided, ([id number]): Negative for high grade urothelial carcinoma. Results of UroVysion fluorescence in situ hybridization (FISH) testing: CEP3: Normal CEP7: Normal CEP17: Normal LSI 9p21: Normal Interpretation: Normal profile Controls stained appropriately. Note: The results are intended as a screening device and should be interpreted in association with other clinical and pathological findings. 07/09/2024 2:36 PM [facility] Clinical Information Benign essential microscopic hematuria R31.1 Urine Cytology/FISH (now) 07/09/2024 2:36 PM [facility] Gross Description A. Urine, Voided, ([id number]): Received one ThinPrep slide for cytology and one ThinPrep slide for UroVysion FISH 07/09/2024 2:36 PM [facility] Disclaimer Unless otherwise specified, all tissue is 10% NB formalin fixed and paraffin embedded. Technical pathology services provided by [facility] at [address] [place] [address] [address], [place] [address] (CLIA #[id number]/Enid Acevedo MD, Edge Stripper) 07/09/2024 2:36 PM [facility] Tissue Urine specimen from urethra / Unknown 06/26/2024 07/03/2024 12:00 PM EST us Landon Monae MD LAB PATHOLOGY ORDERABLES Final Result Performing Organization Address [facility]/ZIP Co de Phone Number [facility] [address] [place] [address], * Culture urine (06/26/2024 12:00 AM EST) Culture, Urine No growth 06/27/2024 1:20 PM [facility] Urine Urine specimen obtained by clean catch procedure / Unknown 06/26/2024 06/26/2024 6:57 PM EST us Landon Monae MD LAB MICROBIOLOGY - GENERA L ORDERABLES Final Result [facility] ([facility]) [facility] [address] [place] [address], * Magnesium (06/16/2024 11:32 AM EST) Magnesium 1.9 1.6 - 2.3 mg/dL [facility] 1 06/16/2024 11:3 2 AM EST 06/16/2024 Narrative [facility] - 06/17/2024 8:08 AM EST Performed at: ??01 - [facility] [address] ??[id number] Product Evangelist: Estela Garg MD, Phone: ??[phone] Fany Suarez NURSERY LABORER LAB BLOOD ORDERABLES Final R esult [facility] 1 * DXA BONE DENSITY STUDY 1+ SITS AXIAL SKEL (04/04/2022 9:58 AM EST) Anatomical Region Laterality Modality Bone Densitometr y 09/16/2021 9:28 AM EDT Narrative 04/04/2022 4:24 PM EST BONE DENSITY (DEXA) ? Lumbar Spine T-score is -1.9. ?? (SD relative to 20-29 y/o adult) Z-score is 0.6. ??(SD relative to age matched peers) This is considered osteopenia by WHO criteria. Left Hip T-score is -2.3. Z-score is -0.2. This is considered osteopenia by WHO criteria. IMPRESSION: This patient is considered to have osteopenia by WHO criteria. The [facility] Department of Internal Medicine recommends using National Osteoporosis Foundation (NOF) guidelines in treatment decisions related to osteoporosis. NOF guidelines suggest considering treatment for postmenopausal women and men aged 50 or older presenting with the following: History of hip or vertebral fracture. T-score = -2.5 (DXA) at the femoral neck, total hip, or spine, after appropriate evaluation to exclude secondary causes. Low bone mass (T-score between -1.0 and -2.5 at the femoral neck or spine) AND a 10-year probability of a hip fracture = 3% OR a 10-year probability of a major osteoporosis-related fracture = 20% based on the [place]-adapted WHO algorithm Please note that all treatment decisions require clinical judgment and consideration of individual patient factors, including patient preferences, co-morbidities, previous drug use, risk factors not captured in the FRAX model (e.g., frailty, falls, vitamin D deficiency, increased bone turnover, interval significant decline in bone density) and possible under- or over-estimation of fracture risk by FRAX. Optional alternative screening schedule based on luis Stewart., [facility] June 08, 2011 for patients with osteopenia (based on hip BMD T-score) is as follows: * ??advanced osteopenia (T scores -2.00 to -2.49), BMD testing every year * ??moderate osteopenia (T scores -1.50 to -1.99), BMD testing every 5 years mild osteopenia or normal BMD (T scores -1.50 and higher), BMD testing every 15 years Procedure Note Renita Fontaine MD - 06/25/2023 BONE DENSITY (DEXA) Lumbar Spine T-score is -1.9. (SD relative to 20-29 y/o adult) Z-score is 0.6. (SD relative to age matched peers) This is considered osteopenia by WHO criteria. Left Hip T-score is -2.3. Z-score is -0.2. This is considered osteopenia by WHO criteria. IMPRESSION: This patient is considered to have osteopenia by WHO criteria. The [facility] Department of Internal Medicine recommendsusing National Osteoporosis Foundation (NOF) guidelines in treatment decisions related toosteoporosis. NOF guidelines suggest considering treatment for postmenopausal women and menaged 50 or older presenting with the following: History of hip or vertebral fracture. T-score = -2.5 (DXA) at the femoral neck, total hip, or spine, afterappropriate evaluation to exclude secondary causes. Low bone mass (T-score between -1.0 and -2.5 at the femoral neck or spine)AND a 10-year probability of a hip fracture = 3% OR a 10-year probability of a majorosteoporosis-related fracture = 20% based on the [place]-adapted WHO algorithm Please note that all treatment decisions require clinical judgment andconsideration of individual patient factors, including patient preferences, co- morbidities,previous drug use, risk factors not captured in the FRAX model (e.g., frailty, falls, vitaminD deficiency, increased bone turnover, interval significant decline in bone density) andpossible under- or over-estimation of fracture risk by FRAX. Optional alternative screening schedule based on ambrosio Stewart al., NEJJanuary 2011 for patients with osteopenia (based on hip BMD T-score) is as follows: * advanced osteopenia (T scores -2.00 to -2.49), BMD testing every year * moderate osteopenia (T scores -1.50 to -1.99), BMD testing every 5years mild osteopenia or normal BMD (T scores -1.50 and higher), BMD testingevery 15 years Chelsea Mcdaniel MD IMG DXA PROCEDURES Final R esult * Annual BMP Blood Test (03/01/2022) [facility] Annual BMP Blood Test abstracted Result [facility] Provider HEALTH MAINTENANCE Final Result * (ABNORMAL) Hemoglobin A1c (03/01/2022) [facility] Hemoglobin A1C 7.1(A) <=6.5 % Blood Venous blood specimen / Unknown Result [facility] Provider LAB BLOOD ORDERABLES Maribell l Result * Lipid panel (03/01/2022) [facility] LDL/HDL Ratio 3 0 - 3 Triglycerides 130 0 - 150 mg/dL Cholesterol 152 0 - 200 mg/dL HDL 51 >=40 mg/dL LDL Cholesterol 75 0 - 100 mg/dL Blood Venous blood specimen / Unknown Result [facility] Provider LAB BLOOD ORDERABLES Maribell l Result * Urine Albumin Creatinine Ratio (01/03/2021) Urine Albumin Creatinine Ratio abstracted us Historical Provider HEALTH MAINTENANCE Final Result from Last 3 Months or Most Recently Relevant to Health Maintenance Insurance [employer] [place] [employer] ADV[place] Advance Directives Documents on File Type Date Recorded 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 Health Care Decision (hx) 04/12/2022 AD CAVAZOS DIRECTIVE Health Care Decision (hx) 04/12/2022 AD CAVAZOS DIRECTIVE Health Care Decision (hx) 04/12/2022 AD CAVAZOS DIRECTIVE Health Care Decision (hx) 04/12/2022 AD CAVAZOS DIRECTIVE Health Care Decision (hx) 04/10/2022 HE ALTH CARE PROXY Health Care Decision (hx) 04/10/2022 HE ALTH CARE PROXY Health Care Decision (hx) 04/10/2022 HE ALTH CARE PROXY Health Care Decision (hx) 04/10/2022 HE ALTH CARE PROXY Care Teams Internet Application Developer Relationship Specialty Start Date End Date Sarah Coello PA [address] [place] [address] PCP - General 06/19/23
--- OUTSIDE RECORDS SUMMARY | 2024-07-10 10:47 | XMS_ITS ---
Author Organization [facility] Address [address] [place] [address] Care Team Providers Care Surface Mount Technology Operator Name Role Phone Chelsea Mcdaniel Unavailable [phone] REASON FOR VISIT QUESTION FOR DR Encounters Encounter Location Date Provider Diagnosis [facility] [address] [place] [address] 06/16/2024 Chelsea Mcdaniel Plan Of Treatment Next Appt Details Provider Name:Chelsea pérez, 08/26/2024 09:20:00 AM, [address], [address], [place], [address], Progress Notes * RENAE KENNEDYOB:1945 (78 yo F)Acc No.[id number]:06/16/2024 Patient:RESHMA JUNG :1945???Age:78 Y???Sex:Female Address:[address] [place] [address], [address] * true * Date:? Generated for Printi ng/Faannag/eTransmitting on:?07/10/2024 10:46 AM EST
--- OUTSIDE RECORDS SUMMARY | 2024-07-10 10:47 | XMS_ITS | Encounter Summary ---
Author Organization [facility] [place] [address] Care Team Providers Care Paper Cone Machine Operator Name Role Phone Sarah Coello Primary Care Provider Encounter Details Date Type Department Care Team (Late Contact Info) Description 07/03/2024 Lab Requisition [facility] - Main Lab [address] [facility] [place] [phone] Landon Monae MD [address] [facility] [address] [place] [address] Benign essential microscopic hematuria Social History Tobacco Use Types Packs/Day Years Used Date Smoking Tobacco: Never Smokeless Tobacco: Never Alcohol Use Standard Drinks/Week Comments Yes 0 (1 standard drink = 0.6 oz pur e alcohol) Comments Unknown Sex and Gender Information Value Date Recorded Sex Assigned at Not on file Legal Sex Female 5:55 PM EST Gender Identity Not on file Sexual Orientation Not on file documented as of this encounter Plan of Treatment Upcoming Encounters Date Type Department Care Team (Late Contact Info) Description 07/23/2024 9:00 AM EST Appointment Radiology Department [address] [phone] 08/05/2024 9:25 AM EDT Office Visit [facility] - [facility] [address] [facility] [address] [place] [phone] Tuan Acuña MD [address] [facility] [address] [place] [address] documented as of this encounter Procedures Procedure Name Priority Date/Time Associated Diagnosis Comments AP OUTSIDE CONSULT Routine 06/26/2024 12 :00 AM EST Benign essential microscopic hematuria documented in this encounter Results * Anatomic pathology outside consult (06/26/2024 12:00 AM EST) Final Diagnosis A. Urine, Voided, ([id number]): Negative for high grade urothelial carcinoma. Results of UroVysion fluorescence in situ hybridization (FISH) testing: CEP3: Normal CEP7: Normal CEP17: Normal LSI 9p21: Normal Interpretation: Normal profile Controls stained appropriately. Note: The results are intended as a screening device and should be interpreted in association with other clinical and pathological findings. 07/09/2024 2:36 PM [facility] Clinical Information Benign essential microscopic hematuria R31.1 Urine Cytology/FISH (now) 07/09/2024 2:36 PM [facility] Gross Description A. Urine, Voided, ([id number]): Received one ThinPrep slide for cytology and one ThinPrep slide for UroVysion FISH 07/09/2024 2:36 PM [facility] Disclaimer Unless otherwise specified, all tissue is 10% NB formalin fixed and paraffin embedded. Technical pathology services provided by [facility] at [address], [place] [address] (CLIA #[id number]/Enid Acevedo MD, Assistant Health Educator) 07/09/2024 2:36 PM [facility] Tissue Urine specimen from urethra / Unknown 06/26/2024 07/03/2024 12:00 PM EST us Landon Monae MD LAB PATHOLOGY ORDERABLES Final Result [facility]) [facility] [address] [place] [address], documented in this encounter Visit Diagnoses Diagnosis Benign essential microscopic hematuria Encounter for screening mammogram for breast cancer documented in this encounter Care Teams Paper Cone Machine Operator Relationship Specialty Start Date End Date Sarah Coello PA [address] [place] [address] PCP - General 06/19/23 documented as of this encounter
--- OUTSIDE RECORDS SUMMARY | 2024-07-10 10:47 | XMS_ITS ---
Author Organization [facility] Address [address] [place] [address] Care Team Providers Care Bottle Sorter Name Role Phone Chelsea Mcdaniel Unavailable [phone] Allergies Allergen (clinical drug ingredient) Drug/Non Drug Allergy documented on EMR Reaction Allergy Type Onset Date Status Ciprofloxacin Skin Rash/Diarrhea Drug Allergy Active Penicillin Skin Rash Drug Allergy Active Results Component Value Reference Range Notes Urinalysis Reviewed date:06/17/2024 11:40:28 AM Interpretation: Performing Lab: Notes/Report: NITRITE Neg PH 5.0 PROTEIN Small S.G 1.015 WBC Moderate GLUCOSE Neg KETONES Neg UROBILINOGEN Neg BILIRUBIN Neg BLOOD Large Urinalysis, Complete-[id number] Reviewed date:06/20/2024 08:51:58 AM Interpretation: Performing Lab:[facility], [address] [place] [address], Phone - [phone], Director - [facility] Notes/Report: Specific [place] 1.013 1.005-1.030 pH 5.5 5.0-7.5 Urine-Color Yellow Yellow Appearance Clear Clear WBC Esterase Negative Negative Protein Negative Negative/Trace Glucose Negative Negative Ketones Negative Negative Occult Blood 3+ Negative Bilirubin Negative Negative Urobilinogen,Semi-Qn 0.2 0.2-1.0 mg/dL Nitrite, Urine Negative Negative Microscopic Examination See below: Micr oscopic was indicated and was performed. WBC 0-5 0 - 5 /hpf RBC >30 0 - 2 /hpf Epithelial Cells (non renal) 0-10 0 - 10 /hpf Casts None seen None seen /lpf Bacteria None seen None seen/Few Urine Culture, Routine-[id number] Reviewed date:06/19/2024 06:32:07 PM Interpretation: Performing Lab:[facility], [facility], Phone - [phone], Director - [facility] Notes/Report: Urine Culture, Routine Final report Result 1 No growth PDF Report Reviewed date:06/19/2024 06:31:52 PM Interpretation: Performing Lab:[facility], [facility], Phone - [phone], Director - [facility] Notes/Report: REASON FOR VISIT ? VAGINAL BLEEDING VS HEMATURIA Medications Medication SIG (Take, Route, Frequency, Duration) Notes Start Date End Date Status Magnesium 400 MG as directed Orally Active metFORMIN HCl ER 500 MG 2 tablets with e vening meal Orally Twice a day Active Probiotic - as directed Orally Active Biotin - as directed 05/13/2024 Active Pravastatin Sodium 20 MG TAKE 1 TABLET BY MOUTH ONCE DAILY FOR 90 DAYS Oral for 90 Days Active glipiZIDE ER 2.5 MG TAKE 1 TABLET BY JAXON TH ONCE DAILY Oral for 90 Days Active Omeprazole 20 MG Oral for 90 Days Active Iron 325 (65 Fe) MG 1 tablet Orally Thre e times a Week for 30 day(s) 05/13/2024 Active Probiotic - as directed Orally 05/13/2024 Active Atenolol 25MG 1 ORAL DAILY for -3 02/05/2012 Active Lisinopril 20 MG 1 tablet Orally Once a day Unknown Dose Active Eliquis 5 MG 1 tablet Orally Twic e a day Active Premarin 0.625 MG/GM 1 GRAM Vaginal TWIC E WEEKLY for 90 days 06/07/2021 Active Myrbetriq 50 MG Oral for 30 Ac tive amLODIPine Besylate 5 MG TAKE 1 TABLET BY MOUTH ONCE DAILY Oral for 90 Active Social History Tobacco Use: Social History Observation Description Date Details (start date - stop date) Never Smoker NA - NA Sexual History Question Answer Notes Had sex in the past 12 months (vaginal, oral, or anal)? No AUDIT-C (Standard) Question Answer Notes Did you have a drink contain ing alcohol in the past year? Yes How often did you have a dri nk containing alcohol in the past year? Never (0 point) How many drinks did you have on a typical day when you were drinking in the past year? 1 or 2 drinks (0 point) How often did you have six o r more drinks on one occasion in the past year? Less than monthly (1 point) Points 1 Interpretation Negative Tobacco Control (Standard) Question Answer Notes Tobacco use: Nonsmoker Vital Signs Temperature 98.1 degrees Fahrenheit 06/17/19 25 Blood pressure systolic 118 mm Hg 06/17/19 25 Blood pressure diastolic 70 mm Hg 025 Height 61.25 in 06/17/2024 Weight 137 lbs 06/17/2024 BMI 25.67 kg/m2 06/17/2024 Encounters Encounter Location Date Provider Diagnosis [facility] [address] [place] [address] 06/17/2024 Chelsea Mcdaniel Other microscopic hematuria R31.29 Assessments Encounter Date Diagnosis (ICD Code) Assessment Notes Treatment Notes Treatment Clinical Notes Section Notes 06/17/2024 Other microscopic hematuria (ICD-10 - R31.29) REVIEWED SEQUENCE OF EVENTS WITH PAT AND SHOWED HER UA AND URINE C/S RESULTS. EXPLAINED THAT SHE WAS APPROPRIATELY TREATED FOR UTI AND HAD NEGATIVE URINE C/S AFTER TREATMENT BUT HAD SIGNIFICANT HEMATURIA AND THUS THE REFERRAL TO A UROLOGIST. 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 REASSURED HER THAT HER MANAGER SUPPORT SERVICES EXAM SHOWED NO BLOOD PER VAGINA CONFIRMED BY A NEGATIVE HEMEOCCULT TEST. KEEP APPT WITH DR MARIE. Plan Of Treatment Treatment Notes Assessment Notes Other microscopic hematuria REVIEWED SEQUENCE OF EVENTS WITH PAT AND SHOWED HER UA AND URINE C/S RESULTS. EXPLAINED THAT SHE WAS APPROPRIATELY TREATED FOR UTI AND HAD NEGATIVE URINE C/S AFTER TREATMENT BUT HAD SIGNIFICANT HEMATURIA AND THUS THE REFERRAL TO A UROLOGIST. 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 REASSURED HER THAT HER MANAGER SUPPORT SERVICES EXAM SHOWED NO BLOOD PER VAGINA CONFIRMED BY A NEGATIVE HEMEOCCULT TEST. KEEP APPT WITH DR MARIE. Next Appt Details Follow Up: prn, Reason: Provider Name:Chelsea pérez, 08/26/2024 09:20:00 AM, [address], [address], [place], [address], Progress Notes * RENAE KENNEDYOB:1945 (78 yo F)Acc No.[id number]:06/17/2024 PROGRESS NOTES Patient:RESHMA JUNG Appointment Provider:?Chelsea pérez M.D. :1945???Age:78 Y???Sex:Female D ate:06/17/2024 Address:[address] [place], [place] [id number] Subjective: * Chief Complaints: * ? VAGINAL BLEEDING VS HEM ATURIA * HPI: ???New/Follow-up Patient Consult:? HARRISON WAS SEEN IN LATE APRIL C/O CLOUDY URINE AND FREQUENCY.? URINE C/S SHOWED KLEBSIELLA PNEUMONIAE SENSITIVE TO BACTRIM.? SHE WAS TREATED WITH BACTRIM DS AND REPEAT URINE C/S AFTER TX WAS NEGATIVE.? HER URINALYSIS, HOWEVER SHOWED >30 RBC'S, WITH +3 OCCULT BLOOD.? SHE WAS ADVISED TO SEE HER UROLOGIST, DR MARIE.? SHE IS NOW ASYMPTOMATIC. SHE CAME IN SHE FORGOT WHY SHE IS BEING SENT TO HER UROLOGIST AND WANTS TO MAKE SURE THERE IS NO BLOOD IN THE VAGINA OR VULVA. * ROS:?general:?no?chest pain.?no?palpitations.?no?headache.?no?cough.?no?shortness of breath.?no?fever.?no?unexplained weight loss.?no?nausea/vomiting.?no?change in bowel movements.?no blood in stool.?genitourinary complaints?yes,?MICROSCOPIC HEMATURIA.?no?skin complaints.? * Medical History:? * Manager Management History:?/ Para?7/4.?Sexual activity?not currently sexually active.?Last Pap Smear:?02/05/12.?Mammogram:?07/16/23 < 50% density, 04/04/22 < 50% density, 06/2020, 09/22/17 < 25% glandular, 03/29/2016 < 50% density, , normal.?LMP and menses?beatrice.? Control:?bilateral tubal ligation.?Endoscopy *?10/30/18.?Colonoscopy?10/30/182009.?Bone Density:?04/04/22, 05/07/14.?MANAGER SUPPORT SERVICES HISTORY MISC.?03/29/16 [place] Score Off Mammogram = 8.9%.? * OB History:?Total pregnancies?7.?Total living children?4.?NVD?4.?Miscarriage(s)?3.? * Surgical History:?Tonsillect truong Bilateral Tubal Ligation Colonoscopy Hysterectomy Vitrectomy Cataracts Surgery Left Knee Replacement 04/10/22 * Hospitalization/Major Diagno stic Procedure:?4 Vaginal Deliveries See Surgical Hx * Family History:?Mother: dece ased 76 yrs, Pulmonary Fibrosis.?Father: 36 yrs, Suicide.?Maternal Grand Mother: , breast cancer.? Son: Tonsil Cancer. * Social History:?Tobacco Use:?Tobacco Control (Standard)?Tobacco use:?Nonsmoker ???Sexual History:?Sexual History?Had sex in the past 12 months (vaginal, oral, or anal)??No ?Details of Sexual History?Are you sexually active??No ???Drugs/Alcohol:?Drugs?Have you used drugs other than those for medical reasons in the past 12 months??No ???Miscellaneous:?Children: yes, 4. ?Domestic violence: no. ?Exercise: yes, occasional walking. ?Home smoke detector use: yes. ?Marital status: single. ?Natural support system: yes. 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 ?Sexual abuse: no. ?Sexually active: no. ?Verbal abuse: no. ???Drug/Alcohol:?AUDIT-C (Standard)?Did you have a drink containing alcohol in the past year??Yes ?How often did you have a drink containing alcohol in the past year??Never (0 point) ?How many drinks did you have on a typical day when you were drinking in the past year??1 or 2 drinks (0 point) ?How often did you have six or more drinks on one occasion in the past year??Less than monthly (1 point) ?Points?1 ?Interpretation?Negative * Medications:?TakingMagnesium 400 MG Capsule as directed Orally metFORMIN HCl ER 500 MG Tablet Extended Release 24 Hour 2 tablets with evening meal Orally Twice a day Probiotic - Capsule as directed Orally amLODIPine Besylate 5 MG Tablet TAKE 1 TABLET BY MOUTH ONCE DAILY Oral Atenolol 25MG 30 1 ORAL DAILY Lisinopril 20 MG Tablet 1 tablet Orally Once a day , Notes to Pharmacist: Unknown DoseEliquis 5 MG Tablet 1 tablet Orally Twice a day Premarin 0.625 MG/GM Cream 1 GRAM Vaginal TWICE WEEKLY Myrbetriq 50 MG Tablet Extended Release 24 Hour Oral Pravastatin Sodium 20 MG Tablet TAKE 1 TABLET BY MOUTH ONCE DAILY FOR 90 DAYS Oral glipiZIDE ER 2.5 MG Tablet Extended Release 24 Hour TAKE 1 TABLET BY MOUTH ONCE DAILY Oral Omeprazole 20 MG Capsule Delayed Release Oral Iron 325 (65 Fe) MG Tablet 1 tablet Orally Three times a Week Probiotic - Tablet Chewable as directed Orally Biotin - Powder as directed Taking Magnesium 400 MG Capsule as directed Orally Taking metFORMIN HCl ER 500 MG Tablet Extended Release 24 Hour 2 tablets with evening meal Orally Twice a day Taking Probiotic - Capsule as directed Orally Taking amLODIPine Besylate 5 MG Tablet TAKE 1 TABLET BY MOUTH ONCE DAILY Oral Taking Atenolol 25MG 30 1 ORAL DAILY Taking Lisinopril 20 MG Tablet 1 tablet Orally Once a day , Notes to Pharmacist: Unknown DoseTaking Eliquis 5 MG Tablet 1 tablet Orally Twice a day Taking Premarin 0.625 MG/GM Cream 1 GRAM Vaginal TWICE WEEKLY Taking Myrbetriq 50 MG Tablet Extended Release 24 Hour Oral Taking Pravastatin Sodium 20 MG Tablet TAKE 1 TABLET BY MOUTH ONCE DAILY FOR 90 DAYS Oral Taking glipiZIDE ER 2.5 MG Tablet Extended Release 24 Hour TAKE 1 TABLET BY MOUTH ONCE DAILY Oral Taking Omeprazole 20 MG Capsule Delayed Release Oral Taking Iron 325 (65 Fe) MG Tablet 1 tablet Orally Three times a Week Taking Probiotic - Tablet Chewable as directed Orally Taking Biotin - Powder as directed DiscontinuedBactrim DS 800-160 MG Tablet 1 tablet Orally TWICE A DAY Medication List reviewed and reconciled with the patientDiscontinued Bactrim DS 800-160 MG Tablet 1 tablet Orally TWICE A DAY Medication List reviewed and reconciled with the patient * Allergies:?Ciprofloxacin: Sk in Rash/Diarrhea - AllergyPenicillin: Skin Rash - Allergyno[Allergies Verified] Objective: * Vitals:?Ht: 61.25 in, Wt: 13 7 lbs, BMI:25.67Index, BP: 118/70 mm Hg, Temp: 98.1 F. * Examination: ???MANAGER SUPPORT SERVICES exam: ?EXTERNAL GENITALIA:?Normal female. No lesions, erythema or discharge.?VAGINA:?atrophic changes, HEMEOCCULT TEST ON VAGINAL SWAB WAS NEGATIVE..? Assessment: * Assessment: 1.?Other microscopic hematur ia - R31.29??? Plan: * Treatment: * Labs:? * ?[facility] ? Value Reference Range ?NITRITE Neg * ?PH 5.0 * ?PROTEIN Small * ?S.G 1.015 * ?WBC Moderate * ?GLUCOSE Neg * ?KETONES Neg * ?UROBILINOGEN Neg * ?BILIRUBIN Neg * ?BLOOD Large * D., GARY 06/17/2024 09:09:42 AM EST > U/A and Urine C/S Sent * Procedure Codes:? * Follow Up:?prn * Images: Billing Information: * Visit Code:? * Procedure Codes:? * Sign off status: Completed true * Appointment Provider:?Chelsea Mcdaniel M.D. Date:?06/17/2024 Generated for Yeni potts/Medardo/eTransmitting on:?07/10/2024 10:47 AM EST History and Physical Notes * HPI (History of Present Illness) Category Sub-Category Detail Notes Category Not es New/Follow-up Patient Consult PAT WAS SEEN IN LATE APRIL C/O CLOUDY URINE AND FREQUENCY. URINE C/S SHOWED KLEBSIELLA PNEUMONIAE SENSITIVE TO BACTRIM. SHE WAS TREATED WITH BACTRIM DS AND REPEAT URINE C/S AFTER TX WAS NEGATIVE. HER URINALYSIS, HOWEVER SHOWED >30 RBC'S, WITH +3 OCCULT BLOOD. SHE WAS ADVISED TO SEE HER UROLOGIST, DR MARIE. SHE IS NOW ASYMPTOMATIC. SHE CAME IN SHE FORGOT WHY SHE IS BEING SENT TO HER UROLOGIST AND WANTS TO MAKE SURE THERE IS NO BLOOD IN THE VAGINA OR VULVA. Examination Category Sub-Category Detail Notes Category Not es MANAGER SUPPORT SERVICES exam VAGINA: atrophic changes , HEMEOCCULT TEST ON VAGINAL SWAB WAS NEGATIVE. EXTERNAL GENITALIA: Normal female. No le sions, erythema or discharge
--- OUTSIDE RECORDS SUMMARY | 2024-07-10 10:47 | XMS_ITS | Patient Health Record ---
Author Organization [facility] Address [address] [facility] [address] [place] [address] Care Team Providers Care Event Organizer Name Role Phone Chelsea Mcdaniel Unavailable [phone] Allergies Allergen (clinical drug ingredient) Drug/Non Drug Allergy documented on EMR Reaction Allergy Type Onset Date Status Ciprofloxacin Skin Rash/Diarrhea Drug Allergy Active Penicillin Skin Rash Drug Allergy Active Results Component Value Reference Range Notes Urinalysis Reviewed date:05/13/2024 11:40:32 AM Interpretation: Performing Lab: Notes/Report: NITRITE NEG PH 5.0 PROTEIN LARGE S.G 1.020 WBC POSITIVE(LG) GLUCOSE NEG KETONES NEG UROBILINOGEN NEG BILIRUBIN NEG BLOOD LARGE Urinalysis, Complete-[id number] Reviewed date:05/15/2024 12:46:26 PM Interpretation: Performing Lab:[facility], [address] [place] [address], Phone - [phone], Director - [facility] Notes/Report: Clinical Information:SRC: URINE Clinical Information:SRC: URINE Specific [place] 1.014 1.005-1.030 pH 7.5 5.0-7.5 Urine-Color Yellow Yellow Appearance Turbid Clear WBC Esterase 3+ Negative Protein 1+ Negative/Trace Glucose Negative Negative Ketones Negative Negative Occult Blood 2+ Negative Bilirubin Negative Negative Urobilinogen,Semi-Qn 0.2 0.2-1.0 mg/dL Nitrite, Urine Negative Negative Microscopic Examination See below: Micr oscopic was indicated and was performed. WBC >30 0 - 5 /hpf RBC >30 0 - 2 /hpf Epithelial Cells (non renal) None seen 0 - 10 /hpf Casts None seen None seen /lpf Bacteria Many None seen/Few Urine Culture, Routine-[id number] Reviewed date:05/15/2024 02:10:31 PM Interpretation: Performing Lab:[email or web address], [address] [place] [address], Phone - [phone], Director - [facility] Notes/Report: Clinical Information:SRC: URINE Clinical Information:SRC: URINE Urine Culture, Routine Final report Result 1 Klebsiella pneumoniae Greater than 100,000 colony forming units per mL Cefazolin <=4 ug/mL Cefazolin with an CARMINA <=16 predicts susceptibility to the oral agents cefaclor, cefdinir, cefpodoxime, cefprozil, cefuroxime, cephalexin, and loracarbef when used for therapy of uncomplicated urinary tract infections due to E. coli, Klebsiella pneumoniae, and Proteus mirabilis. Antimicrobial Susceptibility S = Susceptible; I = Intermediate; R = Resistant P = Positive; N = Negative MICS are expressed in micrograms per mL Antibiotic RSLT#1 RSLT#2 RSLT#3 RSLT#4 Amoxicillin/Clavulanic Acid S Ampicillin R Cefepime S Ceftriaxone S Cefuroxime S Ciprofloxacin S Ertapenem S Gentamicin S Imipenem S Levofloxacin S Meropenem S Nitrofurantoin S Piperacillin/Tazobactam S Tetracycline S Tobramycin S Trimethoprim/Sulfa S PDF Report Reviewed date:05/15/2024 12:29:03 PM Interpretation: Performing Lab:[facility], [address] [place] [address], Phone - [phone], Director - [facility] Notes/Report: Clinical Information:SRC: URINE Urinalysis, Complete-[id number] Reviewed date:05/30/2024 02:42:33 PM Interpretation: Performing Lab:[facility] [place], [address] [place] [address], Phone - [phone], Director - [facility] Notes/Report: Clinical Information:SRC: Clinical Information:SRC: Specific [place] 1.018 1.005-1.030 pH 6.5 5.0-7.5 Urine-Color [place] Yellow Appearance Cloudy Clear WBC Esterase 1+ Negative Protein 2+ Negative/Trace Glucose Negative Negative Ketones Negative Negative Occult Blood 3+ Negative Bilirubin Negative Negative Urobilinogen,Semi-Qn 0.2 0.2-1.0 mg/dL Nitrite, Urine Negative Negative Microscopic Examination See below: Micr oscopic was indicated and was performed. WBC 6-10 0 - 5 /hpf RBC >30 0 - 2 /hpf Epithelial Cells (non renal) 0-10 0 - 10 /hpf Casts None seen None seen /lpf Bacteria None seen None seen/Few Urine Culture, Routine-[id number] Reviewed date:05/26/2024 08:15:32 AM Interpretation: Performing Lab:[facility] [place], [address] [place] [address], Phone - [phone], Director - Sniai Notes/Report: Clinical Information:SRC:UC Clinical Information:SRC:UC Urine Culture, Routine Final report Result 1 No growth PDF Report Reviewed date:05/26/2024 08:13:38 AM Interpretation: Performing Lab:[facility] [place], [address] [place] [address], [place], Phone - [phone], Director - [facility] Notes/Report: Clinical Information:SRC:UC Urinalysis Reviewed date:06/17/2024 11:40:28 AM Interpretation: Performing Lab: Notes/Report: NITRITE Neg PH 5.0 PROTEIN Small S.G 1.015 WBC Moderate GLUCOSE Neg KETONES Neg UROBILINOGEN Neg BILIRUBIN Neg BLOOD Large Urinalysis, Complete-[id number] Reviewed date:06/20/2024 08:51:58 AM Interpretation: Performing Lab:[facility] [place], [address] [place] [address], [place], Phone - [phone], Director - [facility] Notes/Report: Specific [place] 1.013 1.005-1.030 pH 5.5 5.0-7.5 Urine-Color Yellow [...] Bacteria None seen None seen/Few Urine Culture, Routine-[id number] Reviewed date:06/19/2024 06:32:07 PM Interpretation: Performing Lab:[facility] [place], [address] [place] [address], [place], Phone - [phone], Director - [facility] Notes/Report: Urine Culture, Routine Final report Result 1 No growth PDF Report Reviewed date:06/19/2024 06:31:52 PM Interpretation: Performing Lab:[facility], [address], [place], Phone - [phone], Director - [facility] Notes/Report: Reason For Referral No Information Medications Medication SIG (Take, Route, Frequency, Duration) Notes Start Date End Date Status Omeprazole 20 MG Oral for 90 Days Active metFORMIN HCl ER 500 MG 2 tablets with e vening meal Orally Twice a day Active Iron 325 (65 Fe) MG 1 tablet Orally Thre e times a Week for 30 day(s) 05/13/2024 Active Probiotic - as directed Orally Active Probiotic - as directed Orally 05/13/2024 Active amLODIPine Besylate 5 MG TAKE 1 TABLET BY MOUTH ONCE DAILY Oral for 90 Active Biotin - as directed 05/13/2024 Active Atenolol 25MG 1 ORAL DAILY for -3 02/05/2012 Active Lisinopril 20 MG 1 tablet Orally Once a day Unknown Dose Active Eliquis 5 MG 1 tablet Orally Twic e a day Active Premarin 0.625 MG/GM 1 GRAM Vaginal TWIC E WEEKLY for 90 days 06/07/2021 Active Myrbetriq 50 MG Oral for 30 Ac tive Pravastatin Sodium 20 MG TAKE 1 TABLET BY MOUTH ONCE DAILY FOR 90 DAYS Oral for 90 Days Active glipiZIDE ER 2.5 MG TAKE 1 TABLET BY JAXON TH ONCE DAILY Oral for 90 Days Active Magnesium 400 MG as directed Orally Active Social History Tobacco Use: Social History [...] (Standard) Question Answer Notes Tobacco use: Nonsmoker Problems Problem Type SNOMED Code ICD Code Onset Dates Problem Status W/U Status Risk Notes Problem Postmenopausal atrophic vaginitis (67405105) Postmenopausal atrophic vaginitis (N95.2) Active confirmed Problem Incomplete uterovaginal prolapse (501278897) Incomplete uterovaginal prolapse (N81.2) Active confirmed Problem Herniation of rectum into vagina (568076387) Rectocele (N81.6) Active confirmed Problem Urinary incontinence (075363001) Unspecified urinary incontinence (R32) Active confirmed Problem Disorder of bone (38508874) Other specified disorders of bone density and structure, 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) Active confirmed Problem Cystocele (125604871) Cystocele, unspecified (N81.10) Active confirmed Problem Uterovaginal prolapse (18384909) Uterovaginal prolapse, unspecified (N81.4) Active confirmed Problem Functional urinary incontinence (113291549) Functional urinary incontinence (R39.81) Active confirmed Problem Type II diabetes mellitus without complication (084587222) Diabetes mellitus without mention of complication, type II or unspecified type, not stated as uncontrolled (250.00) Active confirmed Major Problem Hyperlipidemia (57531495) Other and unspecified hyperlipidemia (272.4) Active confirmed Major Problem Benign essential hypertension (9402057) Essential hypertension, benign (401.1) Active confirmed Major Problem Atrial fibrillation (17482392) Atrial fibrillation (427.31) Active confirmed Major Problem Menopausal symptom (76050862) Symptomatic menopausal or female climacteric states (627.2) Active confirmed Major Problem Postmenopausal atrophic vaginitis (66397415) Postmenopausal atrophic vaginitis (627.3) Active confirmed Diag Problem Gynecological examination normal (131656804497447) Routine gynecological examination (V72.31) Active confirmed Major Problem Screening for malignant neoplasm of colon (702629461) Special screening for malignant neoplasms, colon (V76.51) Active confirmed Major Vital Signs Temperature 98.1 degrees Fahrenheit 06/17/2024 Blood pressure diastolic 70 mm Hg 06/17/2024 Height 61.25 in 06/17/2024 Blood pressure systolic 118 mm Hg 06/17/2024 Weight 137 lbs 06/17/2024 BMI 25.67 kg/m2 06/17/2024 Encounters Encounter Location Date Provider Diagnosis Total [address] [place] [address] 08/22/2023 Chelsea Mcdaniel Encounter for gynecological examination (general) (routine) without abnormal findings Z01.419 ; Encounter for screening mammogram for malignant neoplasm of breast Z12.31 ; Other specified disorders of bone density and structure, multiple sites M85.89 and Postmenopausal atrophic vaginitis N95.2 [address] [address] 05/13/2024 Chelseaelaine Burgerva Hematuria, unspecifi ed R31.9 and Urgency of urination R39.[address] [address] 06/17/2024 Chelseaelaine PerdomoMcdaniel Other microscopic hematuria R31.[address] [address] 08/22/2023 Chelsea Mcdaniel Total [address] [address] 05/15/2024 Chelsea Mcdaniel Total [address] [address] 05/15/2024 Chelseaelaine Mcdaniel Urinary tract infection, site not specified N39.[address] [address] 05/29/2024 Chelsea Mcdaniel Total [address] [address] 06/16/2024 Chelseaelaine Burgerva Assessments Encounter Date Diagnosis (ICD Code) Assessment Notes Treatment Notes Treatment Clinical Notes Section Notes 08/22/2023 Encounter for gynecological examination (general) (routine) without abnormal findings (ICD-10 - Z01.419) NO MORE PAP TESTS. 08/22/2023 Encounter for screening mammogram for malignant neoplasm of breast (ICD-10 - Z12.31) REGULAR MAMMOGRAMS AND SBE'S WERE RECOMMENDED. 05/13/2024 Hematuria, unspecified (ICD-10 - R31.9) DISCUSSED HEMATURIA NOTED ON OFFICE UA. DISCUSSED COMMON CAUSES OF HEMATURIA. OFFICIAL UA AND URINE C/S. IF SHE DOES NOT HAVE A UTI, WILL REFER TO UROLOGIST FOR EVALUAITON OF HEMATURIA. 05/13/2024 Urgency of urination (ICD-10 - R39.15) OFFICIAL UA AND URINE C/S WILL CALL HER WITH RESULTS. 05/15/2024 Urinary tract infection, site not specified (ICD-10 - N39.0) 06/17/2024 Other microscopic hematuria (ICD-10 - R31.29) REVIEWED SEQUENCE OF EVENTS WITH PAT AND SHOWED HER UA AND URINE C/S RESULTS. EXPLAINED THAT SHE WAS APPROPRIATELY TREATED FOR UTI AND HAD NEGATIVE URINE C/S AFTER TREATMENT BUT HAD SIGNIFICANT HEMATURIA AND THUS THE REFERRAL TO A UROLOGIST. 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 KEEP APPT WITH DR MARIE. 08/22/2023 Other specified disorders of bone density and structure, multiple sites (ICD-10 - M85.89) DISCUSSED HER LAST BMD AND OSTEOPENIA AND ITS IMPACT ON HER HEALTH. ADEQUATE CALCIUM AND VIT D. WEIGHT BEARING EXERCISES. REPEAT BMD THIS YEAR. 08/22/2023 Postmenopausal atrophic vaginitis (ICD-10 - N95.2) CONTINUE PREMARIN CREAM. SHE WILL CALL FOR REFILLS. Plan Of Treatment Pending Test Test Name Order Date MAMMOGRAM, SCREENING 01/02/2018 MAMMOGRAM, SCREENING 04/22/2020 MAMMOGRAM, SCREENING 06/07/2021 MAMMOGRAM, SCREENING 06/08/2022 MAMMOGRAM, SCREENING 08/22/2023 MAMMOGRAM, SCREENING 01/30/2020 BONE DENSITY 06/07/2021 BONE DENSITY 08/22/2023 BONE DENSITY 01/02/2018 BONE DENSITY 04/22/2020 BONE DENSITY 07/27/2016 MM Digital Mammo Screening 01/02/2018 MM Digital Mammo Screening 04/22/2020 MM Digital Mammo Screening 06/07/2021 MM Digital Mammo Screening 08/22/2023 MM Digital Mammo Screening 06/08/2022 Next Appt Details Provider Name:Chelsea Afua pérez, 08/26/2024 09:20:00 AM, [address], [address], [place], [address], Insurance Providers Payer Name Payer Address Payer Phone Subscriber Number Group Number Insured Name Patient Relationship to Insured Coverage Start Date Coverage End Date [employer] MED[employer] ADVANTAGE [facility] [address] [place], [place] [address] [id number] RESHMA KENNEDY Self - patient is the insured Medical (General) History Medical History History ICD Code Postmenopausal atrophic vaginitis N95.2 Unspecified atrial fibrillation I48.91 Other specified diabetes mellitus withou t complications E13.9 Hyperlipidemia, unspecified E78.5 Essential (primary) hypertension I10 Menopausal and female climacteric states N95.1 Rectocele N81.6 Cystocele, unspecified N81.10 Uterovaginal prolapse, unspecified N81.4 Disorder of bone density and structure, unspecified M85.9 Incomplete uterovaginal prolapse N81.2 Other contact with and (suspected) expos ures hazardous to health Z77.9 Nocturia R35.1 Other specified disorders of bone densit y and structure, multiple sites M85.89 Surgical History Surgery Date(Month/Year) Tonsillectomy Bilateral Tubal Ligation Colonoscopy Hysterectomy Vitrectomy Cataracts Surgery Left Knee Replacement 04/10/22 Hospitalization History Reason Date(Month/Year) See Surgical Hx 4 Vaginal Deliveries
--- OUTSIDE RECORDS SUMMARY | 2024-07-10 10:47 | XMS_ITS | Encounter Summary ---
Author Organization [facility] [place] [address] Care Team Providers Care V Belt Skiver Name Role Phone Sarah Coello Primary Care Provider Encounter Details Date Type Department Care Team (Late Contact Info) Description 06/26/2024 Lab Requisition [facility] - Main Lab [address] [facility] [place] [address] Landon Monae MD [address] [place] [phone] Urinary tract infection, site not specified Social History Tobacco Use Types Packs/Day Years [...] 07/23/2024 9:00 AM EST Appointment Radiology Department [address] [address] 08/05/2024 9:25 AM EDT Office Visit [facility] [address] [facility] [address] [place] [address] Tuan Acuña MD [address] [place] [address] documented as of this encounter Procedures Procedure Name Priority Date/Time Associated Diagnosis Comments CULTURE URINE Routine 06/26/2024 12:00 AM EST Urinary tract infection, site not specified documented in this encounter Results * Culture urine (06/26/2024 12:00 AM EST) Culture, Urine No growth 06/27/2024 1:20 PM EST [facility] Urine Urine specimen obtained by clean catch procedure / Unknown 06/26/2024 06/26/2024 6:57 PM EST us Landon Monae MD LAB MICROBIOLOGY - GENERA L ORDERABLES Final Result [facility] [address] [place] [address], documented in this encounter Visit Diagnoses Diagnosis Urinary tract infection, site not specified Encounter for screening mammogram for breast cancer documented in this encounter Care Teams V Belt Skiver Relationship Specialty Start Date End Date Sarah Coello PA [address] [place] [address] PCP - General 06/19/23 documented as of this encounter
--- OUTSIDE RECORDS SUMMARY | 2024-07-10 10:47 | XMS_ITS ---
Author Organization [facility] Address [address] [facility] [address] [place] [address] Care Team Providers Care Envelope Adjuster Name Role Phone Chelsea Mcdaniel Unavailable [phone] REASON FOR VISIT URINE RESULTS Encounters Encounter Location Date Provider Diagnosis [facility] [address] [place] [address] 05/29/2024 Chelsea Mcdaniel Plan Of Treatment Next Appt Details Provider Name:Chelsea pérez, 08/26/2024 09:20:00 AM, [address] [facility], [address], [place], [address], Progress Notes * RENAE KENNEDYOB:1945 (78 yo F)Acc No.[id number]:05/29/2024 Patient:RESHMA JUNG :1945???Age:78 Y???Sex:Female Address:[address] [place] [address], [address] * true * Date:? Generated for Printi delroy/Medardo/eTransmitting on:?07/10/2024 10:47 AM EST
== END 2024-07-10 10:55 | disposition home or self-care (01) ==
PROVIDERS: PCP Physician Assistant Medical; Visit Provider Physician Assistant Medical
DX: I70.90 Unspecified atherosclerosis (principal); E53.8 Deficiency of other specified B group vitamins; E11.59 Type 2 diabetes mellitus with other circulatory complications; I48.0 Paroxysmal atrial fibrillation; N32.81 Overactive bladder; I10 Essential (primary) hypertension; E78.00 Pure hypercholesterolemia, unspecified; K21.9 Gastro-esophageal reflux disease without esophagitis; D51.8 Other vitamin B12 deficiency anemias

== ENCOUNTER 2024-07-10 10:57 | Outpatient (REF) | payer MEDICARE, SELFPAY ==
--- OUTSIDE RECORDS SUMMARY | 2024-07-10 12:14 | XMS_ITS | Clinical Summary ---
Author Organization [facility] Address [address] [facility] [place] [address] Phone Care Team Providers Care Core Filer Name Role Phone Sarah Coello Primary Care Provider [phone] Allergies Active Allergy Reactions Criticality Noted Date [...] Department Care Team Description 07/03/2024 Lab Requisition [facility] - Main Lab [address] [facility] [place] [address] Landon Monae MD Benign essential microscopic hematuria 06/26/2024 Lab Requisition [facility] - Main Lab [address] [facility] [place] [address] Landon Monae MD Urinary tract [...] TONSILLECTOMY ADENOIDECTOMY, BILATERAL MYRINGOTOMY AND TUBES PROCEDURE: GA TONSILLECTOMY & ADENOIDECTOMY <AGE 13 COLONOSCOPY 03/31/2010 PROCEDURE: GA COLONOSCOPY FLX DX W/COLLJ SPEC WHEN PFRMD OTHER SURGICAL HISTORY 10/30/2018 N/A PROCEDURE: COLONOSCOPY LESION REMOVAL; COMMENT: with EGD- Dr. Maldonado TOTAL KNEE ARTHROPLASTY 04/10/2022 Left PROCEDURE: GA ARTHRP KNE CONDYLE&PLATU MEDIAL&LAT COMPARTMENTS Medical History [...] 9:00 AM EST Appointment Radiology Department - [address] [address] 08/05/2024 9:25 AM EDT Office Visit [facility] [address] [facility] 154 [place] [address] Tuan Acuña MD [address] [place] [address] Health Maintenance Due Date Last Done Comments [...] AM EST) Final Diagnosis A. Urine, Voided, ([id number]): Negative for high grade urothelial carcinoma. Results of UroVysion fluorescence in situ hybridization (FISH) testing: CEP3: Normal CEP7: Normal CEP17: Normal LSI 9p21: Normal Interpretation: Normal profile Controls stained appropriately. Note: The results are intended as a screening device and should be interpreted in association with other clinical and pathological findings. 07/09/2024 2:[address] [facility] Clinical Information Benign essential microscopic hematuria R31.1 Urine Cytology/FISH (now) 07/09/2024 2:[address] [facility] Gross Description A. Urine, Voided, ([id number]): Received one ThinPrep slide for cytology and one ThinPrep slide for UroVysion FISH 07/09/2024 2:[address] [facility] Disclaimer Unless otherwise specified, all tissue is 10% NB formalin fixed and paraffin embedded. Technical pathology services provided by [facility] at [address] [place] [address] [address], [place] [address] (CLIA #[id number]/Enid Acevedo MD, Instant Print Operator) 07/09/2024 2:[address] [facility] Tissue Urine specimen from urethra / Unknown 06/26/2024 07/03/2024 12:00 PM EST us Landon Monae MD LAB PATHOLOGY ORDERABLES Final Result Performing Organization Address [facility]/ZIP Co de Phone Number [facility] [address] [place] [address], * Culture urine (06/26/2024 12:00 AM EST) Culture, Urine No growth 06/27/2024 1:[address] [facility] Urine Urine specimen obtained by clean catch procedure / Unknown 06/26/2024 06/26/2024 6:57 PM EST us Landon Monae MD LAB MICROBIOLOGY - GENERA L ORDERABLES Final Result [facility] [address] [place] [address], * Magnesium (06/16/2024 11:32 AM EST) Magnesium 1.9 1.6 - 2.3 mg/dL [facility] 1 06/16/2024 11:3 2 AM EST 06/16/2024 Narrative [facility] 1 - 06/17/2024 8:08 AM EST Performed at: ??01 - [facility] [address] ??[id number] Enamel Buffer: Estela Garg MD, Phone: ??[phone] Fany Suarez CLERICAL WAREHOUSEMAN LAB BLOOD ORDERABLES Final R esult [facility] [...] to have osteopenia by WHO criteria. The [facility] Department of Internal Medicine recommends using National [...] alternative screening schedule based on luis Stewart., [facility] June 08, 2011 for patients with osteopenia [...] to have osteopenia by WHO criteria. The [facility] Department of Internal Medicine recommendsusing National Osteoporosis [...] esult * Annual BMP Blood Test (03/01/2022) [facility] Annual BMP Blood Test abstracted Result [facility] Provider HEALTH MAINTENANCE Final Result * (ABNORMAL) Hemoglobin A1c (03/01/2022) [facility] Hemoglobin A1C 7.1(A) <=6.5 % Blood Venous blood specimen / Unknown Result [facility] Provider LAB BLOOD ORDERABLES Maribell l Result * Lipid panel (03/01/2022) [facility] LDL/HDL Ratio 3 0 - 3 Triglycerides 130 0 - 150 mg/dL Cholesterol 152 0 - 200 mg/dL HDL 51 >=40 mg/dL LDL Cholesterol 75 0 - 100 mg/dL Blood Venous blood specimen / Unknown Result [facility] Provider LAB BLOOD ORDERABLES Maribell l Result * Urine Albumin Creatinine Ratio (01/03/2021) Urine Albumin Creatinine Ratio abstracted us Historical Provider HEALTH MAINTENANCE Final Result from Last 3 Months or Most Recently Relevant to Health Maintenance Insurance [employer] [place] MED[employer] - [place] Advance Directives Documents on File Type Date Recorded Patient Resident Director Expl anation Health Care Decision (hx) 04/12/2022 [...] 04/10/2022 HE ALTH CARE PROXY Care Teams Core Filer Relationship Specialty Start Date End Date Sarah Coello PA [address] [place] [address] PCP - General 06/19/23
--- OUTSIDE RECORDS SUMMARY | 2024-07-10 12:14 | XMS_ITS | Encounter Summary ---
Author Organization [facility] [place] [address] Care Team Providers Care Electrical Electronics Engineers Name Role Phone Sarah Coello Primary Care Provider [phone] Encounter Details Date Type Department Care Team (Late Contact Info) Description 06/26/2024 Lab Requisition [facility] - Main Lab [address] [facility] [place] [address] Landon Monae MD [address] [place] [phone] Urinary tract infection, site not specified Social [...] 07/23/2024 9:00 AM EST Appointment Radiology Department [address] [address] 08/05/2024 9:25 AM EDT Office Visit [facility] [address] [facility] [address] [place] [phone] Tuan Acuña MD [address] [place] [address] documented as of this encounter Procedures Procedure Name Priority Date/Time Associated Diagnosis Comments CULTURE URINE Routine 06/26/2024 12:00 AM EST Urinary tract infection, site not specified documented in this encounter Results * Culture urine (06/26/2024 12:00 AM EST) Culture, Urine No growth 06/27/2024 1:20 PM EST [facility] Urine Urine specimen obtained by clean catch procedure / Unknown 06/26/2024 06/26/2024 6:57 PM EST us Landon Monae MD LAB MICROBIOLOGY - GENERA L ORDERABLES Final Result [facility] [address] [place] [address], documented in this encounter Visit Diagnoses Diagnosis Urinary tract infection, site not specified Encounter for screening mammogram for breast cancer documented in this encounter Care Teams Electrical Electronics Engineers Relationship Specialty Start Date End Date Sarah Coello PA [address] [place] [address] PCP - General 06/19/23 documented as of this encounter
--- OUTSIDE RECORDS SUMMARY | 2024-07-10 12:14 | XMS_ITS | Encounter Summary ---
Author Organization [facility] [place] [address] Care Team Providers Care Educational Advisor Name Role Phone Sarah Coello Primary Care Provider [phone] Encounter Details Date Type Department Care Team (Late Contact Info) Description 07/03/2024 Lab Requisition [facility] - Main Lab [address] [facility] [place] [id number] Landon Monae MD [address] [facility] [address] [place] [address] Benign essential microscopic hematuria Social [...] 07/23/2024 9:00 AM EST Appointment Radiology Department [address] [phone] 08/05/2024 9:25 AM EDT Office Visit [facility] [address] [facility] [address] [place] [phone] Tuan Acuña MD [address] [facility] [address] [place] [address] documented as of this encounter Procedures Procedure Name Priority Date/Time Associated Diagnosis Comments AP OUTSIDE CONSULT Routine 06/26/2024 12 :00 AM EST Benign essential microscopic hematuria documented in this encounter Results * Anatomic pathology outside consult (06/26/2024 12:00 AM EST) Final Diagnosis A. Urine, Voided, ([id number]): Negative for high grade urothelial carcinoma. Results [...] CENTER LAB Gross Description A. Urine, Voided, ([id number]): Received one ThinPrep slide for cytology and one ThinPrep slide for UroVysion FISH 07/09/2024 2:36 PM [facility] Disclaimer Unless otherwise specified, all tissue is 10% NB formalin fixed and paraffin embedded. Technical pathology services provided by [facility] at [address], [place] [address] (CLIA #[id number]/Enid Acevedo MD, Assistant Corporation Counsel) 07/09/2024 2:36 PM [facility] Tissue Urine specimen from urethra / Unknown 06/26/2024 07/03/2024 12:00 PM EST us Landon Monae MD LAB PATHOLOGY ORDERABLES Final Result [facility] [address] [place] [address], documented in this encounter Visit Diagnoses Diagnosis Benign essential microscopic hematuria Encounter for screening mammogram for breast cancer documented in this encounter Care Teams Educational Advisor Relationship Specialty Start Date End Date Sarah Coello PA [address] [place] [address] PCP - General 06/19/23 documented as of this encounter
--- OUTSIDE RECORDS SUMMARY | 2024-07-10 12:14 | XMS_ITS | Data Portability ---
Author Organization [facility], [facility] Address [address] [place] [address] Care Team Providers Care Sales Enablement Consultant Name Role Phone FATEMEH TAPIA Primary Care Provider [phone] Assessment No assessment recorded. Plan of Treatment Reminders Order Date Submit Date Provider Last Modified By Organization Details Last Modified Time Details Appointments None record ed. Lab None record ed. Referral occupa tional therap ist, hand referr al - Left fifth metaca rpal fractu reDIGI [place] ROM ONLY 2023 024 annmarie Not available 4 14:12:31 Procedures None record ed. Surgeries None record ed. Imaging XR, hand, 3 or more view - rm 306 3v left hand 2024 025 charissa [facility], [address], [address], [place], [address], 5 09:59:53 XR, hand, 3 or more view - rm 301 rechec k left hand 3v 2023 024 [email or web address] [facility], [address], [address], [place], [address], 4 08:42:23 Medication Orders None record ed. Patient TargetsNo targets recorded. Patient Instructions Encounter Date Encounter Id Patient Instructions Last Modified By Organization Details Last Modified Time 04/23/[id number] [facility] Custom Hand Orthosis Information Sheet [address] [address] Name:Dimitry Alba Left Diagnosis: Fifth metacarpal shaft fracture Orthosis Code: Hand Wrist WHO L 3906 Orthosis Style: Wrist-based ulnar gutter style hand immobilization orthosis including the MCP joint in flexion and IP joints free; including the fourth and fifth metacarpals The PURPOSE for this custom orthosis is to: Protect the fracture site and reduce motion of the wrist and MCP joints PRECAUTIONS to consider include: HEAT SOURCES: including, but not limited to, the relations mgr, dryer, stove, furnace, heater, car (on a hot summer day). PETS: they like to chew the plastic. SKIN: watch for redness, blisters or any skin irritations. CLEANING: use warm soapy water, wipes or poultry picker to keep the plastic clean, cotton socks and straps can be hand washed. The PLAN is to wear this brace: Nearly full-time, remove for therapy exercises and personal hygiene. For modifications to this custom piece please contact your hand therapy provider. If you have not been assigned to hand therapy please call this office to be seen for an adjustment. This orthosis is medically necessary for proper and appropriate treatment of the above noted diagnosis. This orthosis has been custom fabricated by: Anjana GARCIA/L, CHT I understand the purpose, precautions and plan for this custom orthosis Patient Signature: [email or web address] Not available 04/23/2024 09:11:37 Reason for Referral Left fifth metacarpal fractu reDIGITAL ROM ONLY Referring Physician: Shanthi Cevallos, Orthopedic Surgery, [id number] Encounter Date: 04/23/2024 Results Created Date Observation Date Name Description Value Unit Range Abnormal Flag Note LastModifiedBy Organization Detail LastModifiedTime 03/28/20 24 03/28/2024 XR, foot, 3 or more view [email or web address]:/ [email or web address] ?Encry pted=s hAaTro YD8dLq bEUv6g %2BXZw aYqtaq 0bqfl% 2Fg9IQ a4ajBk vP9nXo QUaueC m3YtLR FvZlgJ JJ8mAn HZtai3 4t1060 AC0Kqa HqCUKW lKiQtr MwF INTER[facility] [address] [facility] [address] [facility] [address], [place], [address], 03/28/2024 13:27:48 03/28/20 24 03/28/2024 XR, foot, 3 or more view [email or web address]:/ [email or web address] ?Encry pted=s hAaTro YD8dLq bEUv6g %2BXZw aYqtaq 0bqfl% 2Fg9IQ a4ajBk vP9nXo QUaueC m3YtLR FvZl JJ8mAn HZtai3 1h1847 AC0Kqa HqCUKW lKiQtr MwF INTERFACE [facility] [address], [place], [address], 03/28/2024 13:27:50 03/28/20 24 03/28/2024 XR, ankle , 2 view [email or web address]:/ [email or web address] ?Encry pted=s hAaTro YD8dLq bEUv6g %2BXZw aYqtaq 0bqfl% 2Fg9IQ a4ajBk vP9nXo QUaueC m3YtLR FvZlJ JJ8mAn HZtai3 6d0336 AC0Kqa HqCUKW iKiQtr MwF INTERFACE [facility] [address], [place], [address], 03/28/2024 13:28:45 03/28/20 24 03/28/2024 XR, ankle , 2 view [email or web address]:/ [email or web address] ?Encry pted=s hAaTro YD8dLq bEUv6g %2BXZw aYqtaq 0bqfl% 2Fg9IQ a4ajBk vP9nXo QUaueC m3YtLR FvZlgJ JJ8mAn HZtai3 2v6985 AC0Kqa HqCUKW iKiQtr MwF INTERFACE [facility] [address], [place], [address], 03/28/2024 13:28:47 03/31/20 24 03/31/2024 XR, hand, 3 or more view http:/ [email or web address] ?Encry pted=s hAaTro YD8dLq bEUv6g %2BXZw aYqtaq 0bqfl% 2Fg9IQ a4ajBk vP9nXo QUaueC m3YtLR FvZlgJ JJ8mAn HZtai3 6r5956 AC0Kqa HWEVaG hKiQtr MwF INTERFACE [facility] [address] [facility] [address], [place], [address], 03/31/2024 10:29:17 03/31/20 24 03/31/2024 XR, hand, 3 or more view [email or web address]:/ [email or web address] ?Encry pted=s hAaTro YD8dLq bEUv6g %2BXZw aYqtaq 0bqfl% 2Fg9IQ a4ajBk vP9nXo QUaueC m3YtLR FvZlgJ [facility] 4r2622 AC0Kqa HWEVaG hKiQtr [facility] INTERFACE [facility] [address] [facility] [address], [place], [address], 03/31/2024 10:29:19 04/13/20 24 04/11/2024 CT, foot, w/o contr ast No observ ation record ed. [email or web address] [facility] [place] [address] [facility] [address], [place], [address], 04/14/2024 15:32:41 04/15/20 24 03/23/2024 radio logy overr ead* No observ ation record ed. [email or web address] [facility] [address], [place], [address], 04/15/2024 11:33:13 04/23/20 24 04/23/2024 XR, hand, 3 or more view [email or web address]:/ [email or web address] ?Encry pted=s hAaTro YD8dLq bEUv6g %2BXZw aYqtaq 0bqfl% 2Fg9IQ a4ajBk vP9nXo QUaueC m3YtLR FvZlgJ JJ8mAn HZtai3 6b4030 AC0Kqa XqHVaK gKiQtr MwF INTERFACE [facility] [address], [place], [address], 04/23/2024 08:36:02 04/23/20 24 04/23/2024 XR, hand, 3 or more view http:/ [email or web address] ?Encry pted=s hAaTro YD8dLq bEUv6g %2BXZw aYqtaq 0bqfl% 2Fg9IQ a4ajBk vP9nXo QUaueC m3YtLR FvZlgJ JJ8mAn HZtai3 7y1550 AC0Kqa XqHVaK gKiQtr [facility] INTERFACE [facility] [address], [place], [address], 04/23/2024 08:36:04 Result Notes None recorded. Procedures Surgical History None recorded. Imaging Results Imaging Date Name Status LastModified by Organiz ation Details LastModified Time 03/28/2024 XR, foot, 3 or more view completed INTERFACE [facility] [address], [place], [address], 03/28/2024 13:27:48 03/28/2024 XR, foot, 3 or more view completed [facility] [address], [place], [address], 03/28/2024 13:27:50 03/28/2024 XR, ankle, 2 view completed [facility] [address], [place], [address], 03/28/2024 13:28:45 03/28/2024 XR, ankle, 2 view completed [facility] [address], [place], [address], 03/28/2024 13:28:47 03/31/2024 XR, hand, 3 or more view completed [facility] [address], [place], [address], 03/31/2024 10:29:17 03/31/2024 XR, hand, 3 or more view completed [facility] [address], [place], [address], 03/31/2024 10:29:19 04/11/2024 CT, foot, w/o contrast [place] [address] [facility] [place] [address] [facility] [address], [place], [address], 04/14/2024 15:32:41 03/23/2024 radiology overread* completed [facility] [address], [place], [address], 04/15/2024 11:33:13 04/23/2024 XR, hand, 3 or more view completed [facility] [address], [place], [address], 04/23/2024 08:36:02 04/23/2024 XR, hand, 3 or more view completed [facility] [address], [place], [address], 04/23/2024 08:36:04 Procedure Notes None recorded. Medical Equipment None Reported. Allergies Allergen ID Allergen Name Allergen Category Reaction Reaction Severity Criticality Documentation Date Start Date Code Code System Note Provider Name and Address Organization Details Recorded Time 607350 Product containin g penicilli n (product) medicatio n Not available Not available Not available 03/28/2024 50561 8001 SNOMED rash Charu schmitz [place] - [facility] 14:38:45 Medications Name Sig Start Date Stop Date Status Note LastModified by Organization Details LastModified Time tizanidine 2 mg tablet TAKE 1 TO 2 TABLETS BY MOUTH EVERY 8 HOURS NEEDED FOR PAIN AND FOR MUSCLE SPASM active Not Available Not Available No t Available clindamycin HCl 300 mg capsule TAKE 2 CAPSULES BY MOUTH 1 HOUR BEFORE DENTAL APPOINTMENT AND 1 CAPSULE 4 HOURS AFTER APPOINTMENT active Not Available Not Available Not Available azithromycin 250 mg tablet TAKE 2 TABLETS BY MOUTH ON DAY 1, AND THEN TAKE 1 TABLET BY MOUTH ONCE A DAY ON DAY 2 THROUGH DAY 5 active Not Available Not Available No t Available amlodipine 5 mg tablet TAKE 1 TABLET BY MOUTH ONCE DAILY active Not Available Not Available No t Available sulfamethoxa zole 800 mg-trimethop rim 160 mg tablet TAKE 1 TABLET BY MOUTH TWICE DAILY FOR 7 DAYS active Not Available Not Available No t Available magnesium oxide 400 mg (241.3 mg magnesium) tablet TAKE 1 TABLET BY MOUTH ONCE DAILY active Not Available Not Available No t Available glipizide ER 2.5 mg tablet, extended release 24 hr TAKE 2 TABLETS BY MOUTH ONCE DAILY active Not Available Not Available No t Available omeprazole 20 mg capsule,saranya yed release TAKE 1 CAPSULE BY MOUTH ONCE DAILY active Not Available Not Available No t Available pravastatin 20 mg tablet TAKE 1 TABLET BY MOUTH ONCE DAILY active Not Available Not Available No t Available lisinopril 40 mg tablet TAKE 1 TABLET BY MOUTH ONCE DAILY active Not Available Not Available No t Available metformin ER 500 mg tablet,exten ded release 24 hr TAKE 2 TABLETS BY MOUTH TWICE DAILY FOR 90 DAYS active Not Available Not Available No t Available atenolol 50 mg tablet TAKE 1 TABLET BY MOUTH ONCE DAILY active Not Available Not Available No t Available mirabegron ER 50 mg tablet,exten ded release 24 hr TAKE 1 TABLET BY MOUTH ONCE DAILY active Not Available Not Available No t Available Eliquis 5 mg tablet TAKE 1 TABLET BY MOUTH TWICE DAILY active Not Available Not Available No t Available magnesium 400 mg (as magnesium oxide) tablet TAKE 1 TABLET BY MOUTH ONCE DAILY active Not Available Not Available No t Available Vitals Date Recorded Body height Body mass index (BMI) Body weight Provider Name and Address Organization Details Last Updated DateTime 04/14/2024 157.48 cm 25.2 kg/m2 29183.75 g Charu Wilson [facility] 04/14/2024 09:01:46 Date Recorded Body height Body mass index (BMI) Body weight Provider Name and Address Organization Details Last Updated DateTime 04/23/2024 157.48 cm 25.2 kg/m2 27280.75 g VEENA Wilson [facility] 04/23/2024 08:32:42 Date Recorded Body height Body mass index (BMI) Body weight Provider Name and Address Organization Details Last Updated DateTime 05/05/2024 157.48 cm 25.2 kg/m2 53699.75 g Charu khoury [facility] 05/05/2024 09:06:06 Date Recorded Body height Body mass index (BMI) Body weight Provider Name and Address Organization Details Last Updated DateTime 05/26/2024 157.48 cm 25.2 kg/m2 18702.75 g Randy Ramirez [facility] 05/26/2024 09:33:37 Social History None recorded. Functional Status None recorded. Mental Status None recorded. Family History Nothing Reported. Medical History No medical history recorded. Gynecological HistoryNo gynecological history recorded. Obstetrics History GPAL:G 0 P 0 0 0 0 Past Encounters Encounter ID Performer Location Encounter Start Date Encounter Closed Date Diagnosis/Indication Diagnosis SNOMED-CT Code Diagnosis ICD10 Code Diagnosis Note [id number] MD Amy Parker [address] [place] [address] [address] [place] [address] 03/28/2024 13:13:40 04/27/2024 16:46:49 Pain in right foot 7058924154 20476 M79.671 Subluxatio n of joint of right foot 1548254465 9722954 S93.311A [id number] MD Amy Mckinney [address] [facility] [address] [place] [address] 03/31/2024 10:17:01 04/29/2024 12:03:09 Pain of left hand 4410510305 60939 M79.642 Closed fra cture of shaft of fifth metacarpal bone of left hand 0730376568 7225732 S62.327A [id number] MD Amy Parker [address] [facility] [address] [place] [address] 04/14/2024 07:55:51 05/13/2024 08:01:39 Pain in right foot 7568545382 41888 M79.671 Subluxatio n of joint of right foot 8769009706 5398592 S93.311D [id number] Shanthi croft PA-C [facility] [address] [place] [address] 04/23/2024 08:20:26 05/12/2024 11:38:52 Pain of left hand 6032325691 89806 M79.642 Closed fra cture of shaft of fifth metacarpal bone of left hand 7017167947 8658578 S62.327D [id number] Anjana Stoner, OTR/L,CHT [facility] [address] [place], [place] [address] 04/23/2024 09:07:51 04/23/2024 09:59:55 Closed fracture of shaft of fifth metacarpal bone of left hand 3586064540 8333314 S62.357D Today to protect the fracture site and restrict tendon glide, a wrist based hand immobiliza tion orthosis was fabricated . The purpose, precaution s and plan with this orthosis are reviewed with the patient who agrees to wear this full-time for removing it for hygiene and exercise The patient understand s that this is a custom orthosis made of low temp thermoplas tic. Any modificati ons to the orthosis should be done by a Certified Hand Therapist. The patient may call for an appointmen t with me in this office. Or if the patient is receiving hand therapy , the provider at that clinic may adjust the orthosis as needed. The orthosis fabricated today is the appropriat e style for the diagnosis and informatio n provided. A rigid style orthosis is needed to protect the injury / surgery site and maintain alignment of the involved structures . [id number] MD Amy Parker [address] [place] [address] 05/05/2024 08:50:12 05/30/2024 09:52:36 Pain in right foot 3404203593 61592 M79.671 Contusion of right foot 9067219210 7070906 S90.31XD [id number] Shanthi croft PA-C [facility] [address] [place] [address] 05/26/2024 09:24:08 06/05/2024 12:46:53 Pain of left hand 8794640783 27802 M79.642 Closed fra cture of shaft of fifth metacarpal bone of left hand 4574088430 0111272 S62.327D Health Concerns Section Related Observation LastModified by Organization Detai ls LastModified Time None Recorded Concern Status LastModified by Organization Details LastModified Time None Recorded Advance Directives Directive None Recorded Payers Encounter Date Sequence Insurance Name Policy Number Policy Ruby Covered Member ID Ruby Member ID Guarantor Name 04/14/2024 1 [employer] MED[employer]ARE ADVANTAGE PLAN (MEDICARE REPLACEMENT HMO) [id number] 4 Dimitry Alba [id number] Dimitry Alba 04/23/2024 1 [employer] MEDICARE ADVANTAGE PLAN (MEDICARE REPLACEMENT HMO) [id number] 4 Dimitry Alba [id number] Dimitry Alba 04/23/2024 1 [employer] MED[employer]ARE ADVANTAGE PLAN (MEDICARE REPLACEMENT HMO) [id number] 4 Dimitry Alba [id number] Dimitry Alba 05/05/2024 1 [employer] MED[employer]VANTAGE PLAN (MEDICARE REPLACEMENT HMO) [id number] 4 Dimitry Alba [id number] Dimitry Alba 05/26/2024 1 [employer] MED[employer]VANTAGE PLAN (MEDICARE REPLACEMENT HMO) [id number] 4 Dimitry Alba [id number] Dimitry Alba Notes Date Note Type Note Provider Name and Address Organization Details Recorded Time 04/14/2024 text/html Chief complaint: Follow-up right foot pain History of present illness: Patient presents today for follow-up evaluation and review of CT scan findings. In brief, patient is a very pleasant 78-year-old female, medical history notable for diabetes with unknown A1c, atrial fibrillation currently on Eliquis, who sustained an injury to the right foot on 03/23/2024. Patient reported that she got out of bed at 3 in the morning and unfortunately slipped and hit her foot into something. At last visit she was noted to have significant ecchymoses throughout the midfoot, which were primarily dorsal. She did have a report from an outside ER which suggested there may be a displaced cuneiform fracture. This imaging was unavailable to us here at [facility] however our repeat imaging here suggested possible displaced cuneiform fracture versus vascular calcification. Patient was placed in a tall cam boot at last visit and a CT scan was obtained. Patient presents today for CT scan review I have independently reviewed the patient's CT scan. CT scan demonstrates all tarsometatarsal joints to be in anatomic alignment. There is no evidence of displaced acute fracture. There does appear to be a vascular calcification in the region of the dorsalis pedis artery as it traverses the region of the midfoot. Patient presents today ambulating in a slipper. She found the boot very uncomfortable. Her pain is improving. She is using a compression sock to control swelling. Patient's past medical, surgical, social history is as noted on the intake sheet. I have reviewed this sheet and discussed contents with the patient. There are no changes Physical exam:Patient in no acute distress, alert and oriented. Mood and affect appropriateFocused examination right lower extremity there is diffuse swelling of the right foot.Swelling is substantially decreased from previous. Ecchymoses are resolving. Nontender over the dorsal midfootSensation is intact to light touch in all distributions throughout the foot and ankleOn motor exam there is intact dorsiflexion, plantarflexion, inversion, eversionToes are warm and well-perfused with palpable DP and PT pulses Imaging (previous imaging): AP, lateral, oblique weightbearing imaging of the right foot and ankle was obtained today in office. AP and oblique weightbearing imaging of the right ankle demonstrates no evidence of acute fracture or degenerative change. Tibiotalar mortise is symmetric with no talar tilt or shift. AP weightbearing imaging of the right foot demonstrates no obvious fracture. Tarsometatarsal joints are in anatomic alignment. Oblique imaging also demonstrates fourth and fifth TMT's to be in anatomic alignment. There is some calcification noted in the space between the first and second metatarsal bases. This is of unclear significance. Additionally noted dorsally on lateral x-ray at the base of the second metatarsal is a soft tissue calcification. This either represents displaced bony fragment or possible arterial calcification Impression:? Status post right foot injury 03/23/2024? Midfoot contusion Plan:? I reviewed CT scan findings at length with the patient and her . Fortunately, CT scan demonstrates absolutely no evidence of fracture. I suspect the degree of swelling and ecchymoses is related to venous insufficiency as well as the fact that the patient is on Eliquis currently ? I have recommended she continue to use a compression sock to control swelling. I am concerned with her trying to fit her foot into a constrictive sneaker, and I have recommended she use a postoperative sandal until her swelling subsides further. I have prescribed her a flat postoperative sandal in office today ? We will see her back in office in about 3 weeks for repeat evaluation Marie Salas MD [address] [facility] [address], [place], [address], [facility] 04/20/2024 14:20:00 04/23/2024 text/html I am seeing this patient under the supervision of Dr. Sharma who was available but who did not see the patient. HPI: 78-year-old female who injured her left hand in a fall on 03/23/24 and injured her left hand. She describes pain along the ulnar aspect of the hand. She was diagnosed with 1/[address] Elliott discussed this with her and recommended nonoperative treatment. She has been in an ulnar gutter splint. She denies interval trauma. She has no numbness or tingling.Past family, medical, social history and review of systems has been reviewed, updated and is located in the patient? s chart.Examination: Healthy appearing patient in no apparent distress. Alert and oriented. Mild swelling ulnar aspect left hand. Minimally tender to palpation fifth metacarpal. No angular or rotational deformities. Mild stiffness of the fingers. Provocative testing of her bilateral wrists reveals no instability. No atrophy in either upper extremity. Brisk capillary refill in all digits.X-rays ordered, obtained, and reviewed today at [facility]: PA, lateral, oblique views left hand revealed an oblique fracture of the diaphysis of the fifth metacarpal some shortening and some displacement.Impression : Mildly shortened left fifth metacarpal shaft fracture 03/23/2024 with routine healingPlan: The patient and I discussed her situation. At this time her fracture is healing. She can transition to a removable splint and is referred to occupational therapy for range of motion exercises. She will follow-up in 4 to 6 weeks for recheck and new x-rays 3 views of the left hand. She understands that there is some risk of delayed union/nonunion. Questions answered. The patient has weakness and instability of their extremity which requires stabilization for this semi-rigid/rigid orthosis to improve their function. Verbal and written instructions for the use and application of this item were given. Patient was instructed that should the brace result in increased pain, decreased sensation, increased swelling or an overall worsening of their medical condition, to please contact our office immediately. Shanthi Cevallos PA-C [address], [place], [address], [facility] 04/28/2024 16:19:57 04/23/2024 text/html Close displaced fracture of the shaft of the fifth metacarpal bone on the left hand cast was removed today and she is referred for a custom hand splint. The injury was 4 weeks ago. Anjana Stoner OTR/Afua,CHT [address], [place], [address], [facility] 04/23/2024 09:28:51 05/05/2024 text/html Chief complaint: Follow-up right foot pain History of present illness: Patient presents today for follow-up evaluation. In brief, patient is a very pleasant 78-year-old female, medical history notable for diabetes with unknown A1c, atrial fibrillation currently on Eliquis, who sustained an injury to the right foot on 03/23/2024. Patient reported that she got out of bed at 3 in the morning and unfortunately slipped and hit her foot into something. Although she was initially thought to have a fracture of the medial cuneiform, CT scan and repeat x-rays have ruled out fracture. She has had a large dorsal lateral hematoma in the midfoot that has been resolving. She presents today ambulating in normal shoe. She notes her hematoma is decreasing in size. She continues to take Eliquis. Her pain is improving. Patient's past medical, surgical, social history is as noted on the intake sheet. I have reviewed this sheet and discussed contents with the patient. There are no changes Physical exam:Patient in no acute distress, alert and oriented. Mood and affect appropriateFocused examination right lower extremity there is decreased swelling of the right footNontender over the dorsal midfootFocal area of hematoma over the dorsal lateral midfoot. This is decreased in size from previous. She is nontender in this region. There is no evidence of overlying skin breakdownSensation is intact to light touch in all distributions throughout the foot and ankleOn motor exam there is intact dorsiflexion, plantarflexion, inversion, eversionToes are warm and well-perfused with palpable DP and PT pulses Imaging (previous imaging): AP, lateral, oblique weightbearing imaging of the right foot and ankle was obtained today in office. AP and oblique weightbearing imaging of the right ankle demonstrates no evidence of acute fracture or degenerative change. Tibiotalar mortise is symmetric with no talar tilt or shift. AP weightbearing imaging of the right foot demonstrates no obvious fracture. Tarsometatarsal joints are in anatomic alignment. Oblique imaging also demonstrates fourth and fifth TMT's to be in anatomic alignment. There is some calcification noted in the space between the first and second metatarsal bases. This is of unclear significance. Additionally noted dorsally on lateral x-ray at the base of the second metatarsal is a soft tissue calcification. This either represents displaced bony fragment or possible arterial calcification Impression:? Status post right foot injury 03/23/2024? Midfoot contusion with resolving hematoma Plan:? Patient continues to progress well in her recovery. We will continue to monitor her hematoma. She will contact us if she develops any increasing pain or skin breakdown in this region. I did remind her that these types of hematomas can take 3 to 4 months to resolve completely ? She can continue to wear comfortable shoes as tolerated ? She will follow-up with us on an as-needed basis moving forward. She will contact us if any further issues arise Marie Salas MD [address] [place] [address] [address], [place], [address], [facility] 05/05/2024 16:56:53 05/26/2024 text/html I am seeing this patient under the supervision of Dr. Hermosillo who was available but who did not see the patient. HPI: 78-year-old female who injured her left hand in a fall on 03/23/24. She describes pain along the ulnar aspect of the hand. She was diagnosed with fifth metacarpal fracture and Dr. Elliott discussed this with her and recommended nonoperative treatment. She has weaned from her removable ulnar gutter splint. She denies any significant pain or interval trauma. She reports mild persistent swelling of the left small finger. She is attending occupational therapy.Past family, medical, social history and review of systems has been reviewed, updated and is located in the patient? s chart.Examination: Healthy appearing patient in no apparent distress. Alert and oriented. Mild swelling ulnar aspect left hand and left small finger. Nontender to palpation fifth metacarpal. No angular or rotational deformities. Mild stiffness of the fingers. Provocative testing of her bilateral wrists reveals no instability. No atrophy in either upper extremity. Brisk capillary refill in all digits.X-rays ordered, obtained, and reviewed today at [facility]: PA, lateral, oblique views left hand revealed an oblique fracture of the diaphysis of the fifth metacarpal some shortening and some displacement With some interval callus formation.Impression: Mildly shortened left fifth metacarpal shaft fracture 03/23/2024 with routine healingPlan: The patient and I discussed her situation. At this time her fracture is healing. She no longer requires the use of a removable splint. She should continue with occupational therapy for range of motion and strengthening. She was cautioned regarding risk for reinjury due to persistent fracture line and I recommended a follow-up in 6 weeks for recheck and new x-rays 4 views of the left hand including a reverse oblique view. She understands risk of delayed union/nonunion, which was previously discussed. Questions answered. The patient has weakness and instability of their extremity which requires stabilization for this semi-rigid/rigid orthosis to improve their function. Verbal and written instructions for the use and application of this item were given. Patient was instructed that should the brace result in increased pain, decreased sensation, increased swelling or an overall worsening of their medical condition, to please contact our office immediately. Shanthi Cevallos PA-C [address], [place], [address], [place] - [facility] 05/26/2024 12:04:25 OBGyn Episode No OBEpisode recorded.
[2024-07-10 14:12] LABS: MANUAL DIFF FLAG NO
[2024-07-10 14:20] LABS: Basophils Absolute Auto 0.1 X10*3/uL (0.0-0.2); Basophils Percent Auto 0.8 % (0-2); Eosinophils Absolute Auto 0.1 X10*3/uL (0.0-0.4); Eosinophils Percent Auto 1.8 % (0-4); Hematocrit 37.5 % (37.0-47.0); Hemoglobin 11.9 g/dl (12.0-16.0); Imm Gran Abs Auto 0.03 X10*3/uL (0.00-0.03); Imm Gran Pct Auto 0.4 % (0.0-0.4); Lymphocytes Absolute Auto 2.4 X10*3/uL (1.2-4.9); Lymphocytes Percent Auto 33.5 % (20-40); Mean Corpuscular HGB Conc 31.7 g/dl (31.0-35.0); Mean Corpuscular Hemoglobin 25.9 pg (27.0-33.0); Mean Corpuscular Volume 81.5 fL (80.0-98.0); Monocytes Absolute Auto 0.6 X10*3/uL (0.1-1.2); Monocytes Percent Auto 8.5 % (2-11); Platelet Count 294 X10*3/uL (160-400); White Blood Count 7.2 X10*3/uL (4.8-10.8)
[2024-07-10 14:24] LABS: Anion Gap 11 (12-20); Blood Urea Nitrogen 19 mg/dL (9-16); Calcium 9.8 mg/dL (8.4-10.2); Carbon Dioxide 28 mmol/L (22-29); Chloride 107 mmol/L (96-108); Estimated Glomerular Filt Rate > 60; Glucose Random 98 mg/dL (60-115); Potassium 4.2 mmol/L (3.3-5.1); Sodium 142 mmol/L (135-145)
[2024-07-10 14:26] LABS: Estimated Average Glucose 140 mg/dL; Hemoglobin A1c % 6.5 % (<6.0)
[2024-07-10 14:59] LABS: Vitamin B12 502 pg/mL (200-900)
== END 2024-07-10 10:58 | disposition home or self-care (01) ==
LOC: HO.WFDLDS 10:57
PROVIDERS: Visit Provider Physician Assistant Medical
DX: I70.90 Unspecified atherosclerosis (principal); E11.59 Type 2 diabetes mellitus with other circulatory complications; I48.0 Paroxysmal atrial fibrillation; N32.81 Overactive bladder; I10 Essential (primary) hypertension; E78.00 Pure hypercholesterolemia, unspecified; K21.9 Gastro-esophageal reflux disease without esophagitis; D51.8 Other vitamin B12 deficiency anemias; Z79.01 Long term (current) use of anticoagulants; Z79.84 Long term (current) use of oral hypoglycemic drugs; Z79.899 Other long term (current) drug therapy; Z91.89 Other specified personal risk factors, not elsewhere classified
CPT/HCPCS: 36415; 80048; 82607; 83036; 85025; 99212

== ENCOUNTER 2024-10-16 08:58 | Outpatient (AMB) | payer MEDICARE, SELFPAY ==
--- NOTE | 2024-10-16 09:04 | MHC.PC.OV ---
Vital Signs 10/16/24 09:14 Height 5 ft 2 in Weight 135 lb 2 oz BMI 24.7 BP 138/70 Blood Pressure Location Lt brachial Position Sitting Pulse 62 Pulse Source Pulse Oximeter Temp 98.2 F Temp Source Temporal Artery Scan Pulse Oximetry (%) 98 Intake Visit Reasons: Type II diabetes Intake Note: Dimitry presents in the office today to follow up on her Type II Diabetes. Allergies penicillin V Allergy (Unknown, Verified 10/16/24 09:07) Rash Tobacco use date assessed: 10/16/24 Fall risk assessment: 1 Fall in past year Last assessed Fall Risk: 10/16/24 Dental Screening Dental Screen Date: 10/16/24 Did you have a dental visit in the last 12 months?: Yes Did you have a dental problem in the last 6 months where you did not have access to dental care?: No Was dental information given to patient?: Patient has dentist HPI HPI Comments History of Present Illness Details This is a 78-year-old female with a past medical history of hypertension, hyperlipidemia, type 2 diabetes, paroxysmal atrial fibrillation, GERD and anemia presenting for follow up. She is accompanied by her . She finished physical therapy after fracturing her left finger. The CT scan of her right foot did not demonstrate any fracture so she did not end up needing surgery. Endorses right heel pain x 4 weeks. Hurts more to walk. No injury. Requests referral to Dr. Salas. Type 2 diabetes is treated with Glipizide and metformin. Hemoglobin a1c is 6.7% today. She has annual eye exams at [facility]. Her blood pressure at home <130/80. Cardiovascular- followed by Dr. Acuña for atrial fibrillation. She sees Dr. Lovell for PVD. No chest pain, recent palpitations or syncope. Her current regimen is amlodipine, Eliquis, atenolol, lisinopril, pravastatin. GERD is treated by Dr. Maldonado. She is up-to-date with colonoscopy and EGD. On her last scope they found a small erosion which they believe was contributing to anemia. It was not actively bleeding. She takes omeprazole. She avoids NSAIDs. Overactive bladder is treated with Myrbetriq. She has seen Dr. Monae for this. She has osteoarthritis in her knees. She had a left knee replacement with Dr. Chaidez. Sees Dr. Mcdaniel in November. Due for mammogram. Ordered. Defers bone density test. ROS: Constitutional: No unexplained weight loss, fever, chills, fatigue or night sweats. Eyes: No vision changes, blurry vision, double vision Respiratory: No shortness of breath, cough or sputum production. Cardiovascular: No chest pain, chest pressure or chest discomfort.+stable lower extremity edema-wears compression stockings. Gastrointestinal: No anorexia, nausea, vomiting or diarrhea. No abdominal pain or blood in stool. Neurologic: No headache, dizziness, syncope Physical exam: Constitutional: Alert, in no distress. Head: Normocephalic. Eyes: Pupils are equal, round and reactive to light. Neck: Supple, Full range of motion. No lymphadenopathy. Respiratory: Clear to auscultation. Cardiovascular: S1 S2 regular. Systolic murmur. Extremities: Warm and well perfused. DP pulses intact. Tender over the plantar aspect of the calcaneus. [facility] Medical History (Updated 10/16/24 @ 09:29 by MARIELENA Weber) Right foot pain PVD (peripheral vascular disease) Atherosclerosis Vitamin B12 deficiency Controlled type 2 diabetes mellitus Paroxysmal atrial fibrillation Overactive bladder Essential hypertension Pure hypercholesterolemia Heart murmur Chronic GERD Cervical spondylosis Anemia Cataract T/A hypertrophy Headache Incontinence Gastrointestinal disorder Diabetes Afib Heart disease Palpitations High blood pressure Surgical History History of cardiac radiofrequency ablation History of left knee replacement H/O colonoscopy H/O: hysterectomy H/O vitrectomy H/O tubal ligation Family History (Updated 10/16/24 @ 09:11 by Charu Ramirez MA) Maternal Grandmother Breast cancer Brother Breast cancer Social History (Updated 10/16/24 @ 09:11 by Charu Ramirez MA) Household Members: Spouse Both parents involved: No Caregiver staying overnight: No Housing: House Are you a primary respiratory care faculty to a significant other at home: No Do you presently have visiting nurse or other home services: No 75 years or older and lives alone: No Alcohol intake: current Alcohol intake frequency: holidays/special occasions only Patient Tobacco Use Status: Never used Tobacco e-Cigarette/Vaping Use: Never Used Second Hand Smoke Exposure: No Use of substances other than those prescribed or required for medical reasons: No service: No Current occupational status: retired Current occupational exposures/hazards: No Cognitive needs: No Hearing needs: No Vision needs: No Questionnaire PHQ-9 Over the last 2 weeks, how often have you been bothered by any of the following problems? 1. Little interest or pleasure in doing things: not at all 2. Feeling down, depressed, or hopeless: not at all 3. Trouble falling or staying asleep, or sleeping too much: not at all 4. Feeling tired or having little energy: not at all 5. Poor appetite or overeating: not at all 6. Feeling bad about yourself - or that you are a failure or have let yourself or your family down: not at all 7. Trouble concentrating on things, such as reading the newspaper or watching television: not at all 8. Moving or speaking so slowly that other people could have noticed. Or the opposite - being so fidgety or restless that you have been moving around a lot more than usual: not at all 9. Thoughts that you would be better off or of hurting yourself in some way: not at all Total score: 0 Depression Screening Interpretation: Negative Depression Screening Done: Yes 57350 - PHQ-9 Billing: Yes Source: Developed by Drs. Ottoniel Duran, Elana Young, Pierre Garsia and colleagues, with an educational moises from [employer]. Thrive Questionnaire Date Thrive assessed: 10/16/24 I am a: Patient What is your living situation today?: I choose not to answer this question Within the past 12 months, did the food you bought not last and you didn't have the money to get more?: I choose not to answer this question Within the past 12 months, did you worry whether your food would run out before you got money to buy more?: I choose not to answer this question Do you have trouble paying for medicines?: I choose not to answer this question Do you have trouble getting transportation to medical appointments?: I choose not to answer this question Do you have trouble paying your heating and electricity bill?: I choose not to answer this question Do you have trouble taking care of your child, family member or friend?: I choose not to answer this question Do you have trouble with day-to-day activities such as bathing, preparing meals, shopping, managing finances, etc.?: I choose not to answer this question Are you currently unemployed and looking for a job?: I choose not to answer this question Are you interested in more education?: No Please select the resources that you would like help with: None Currently or been in a relationship where the following occur: I choose not to answer THRIVE Score: 0 AUDIT C Alcohol Use Questionnaire (AUDIT-C) 1. How often do you have a drink containing alcohol?: Monthly or less 2. How many drinks containing alcohol do you have on a typical day when you are drinking?: 1 or 2 3. How often do you have six or more drinks on one occasion?: Never Total Score: 1 Score Reviewed/Action Taken: No LUIS-7 AMB Questionnaire LUIS-7 Date LUIS - 7 assessed: 10/16/24 Source: Developed by Drs. Ottoniel Duran, Elana Young, Pierre Garsia and colleagues, with an educational moises from [employer]. Physical exam (Primary Care) Vital Signs: Last Vital Signs Temp 98.2 F 10/16/24 09:14 Pulse 62 10/16/24 09:14 BP 138/70 10/16/24 09:14 Pulse Ox 98 10/16/24 09:14 BMI result Body Mass Index 24.7 Tobacco/Smoking Status: Tobacco use Status Tobacco use date assessed 10/16/24 10/16/24 09:17 Patient Tobacco Use Status Never used Tobacco 10/16/24 09:11 e-Cigarette/Vaping Use Never Used 10/16/24 09:11 PHQ-9: PHQ-9 Score PHQ-9: Total score 0 10/16/24 09:27 Depression Screening Interpretation: Negative Thrive Assessment: Date of Thrive Assessment Date Thrive assessed 10/16/24 10/16/24 09:17 Currently or been in a relationship where the following occur: I choose not to answer Results AMB Hemoglobin A1c AMB Hemoglobin A1c 6.7 % Last Edit by Charu Ramirez MA on 10/16/24 09:54 Results Reviewed Results Reviewed: Laboratory Last Values Hgb A1c (Clinic) 6.7 % (4.0-6.0) H 10/16/24 09:21 Coding Level of Care Code Est Pt Level 4 (61990) Complex EM visit Add On G2211 Diagnoses Vitamin B12 deficiency E53.8 Controlled type 2 diabetes mellitus with other circulatory complication, without long-term current use of insulin E11.59 Diabetes mellitus complication detail: with other circulatory complications Diabetes mellitus complication status: with circulatory complication Diabetes mellitus intermission coordinator insulin use: without intermission coordinator use Paroxysmal atrial fibrillation I48.0 Overactive bladder N32.81 Essential hypertension I10 Pure hypercholesterolemia E78.00 Chronic GERD K21.9 Other vitamin B12 deficiency anemia D51.8 Anemia type: B12 deficiency Vitamin B12 deficiency anemia type: other B12 deficiency Right foot pain M79.671 Additional Codes PHQ-9 - 37080 - PHQ-9 Billing: Yes ([id number]) Assessment & Plan Assessment & Plan (1) Vitamin B12 deficiency: Code(s): E53.8 - Deficiency of other specified B group vitamins Category: Medical Plan: Continue B12. (2) Controlled type 2 diabetes mellitus: Code(s): E11.9 - Type 2 diabetes mellitus without complications Category: Medical Qualifiers: Diabetes mellitus complication detail: with other circulatory complications Diabetes mellitus complication status: with circulatory complication Diabetes mellitus long-term insulin use: without long-term use Qualified Code(s): E11.59 - Type 2 diabetes mellitus with other circulatory complications Plan: Hemoglobin a1c is at goal. Discussed pathophysiology of Type II Diabetes Mellitus with the patient in detail.? I explained the intermission coordinator risks and complications associated with uncontrolled diabetes including nephropathy, neuropathy, peripheral vascular disease, retinopathy, increased risk of heart disease and stroke.? Discussed lifestyle modification with the patient. Recommended 30 minutes of moderately vigorous exercise 5 days per week to promote weight loss. Continue eye exams. Continue Glipize and Metformin. (3) Paroxysmal atrial fibrillation: Code(s): I48.0 - Paroxysmal atrial fibrillation Category: Medical Plan: Followed by Cardiology. Anticoagulated on Eliquis. (4) Overactive bladder: Code(s): N32.81 - Overactive bladder Category: Medical Plan: Continue Myrbetriq. Avoid caffeine. (5) Essential hypertension: Code(s): I10 - Essential (primary) hypertension Category: Medical Plan: The patient's blood pressure is mildly elevated today. Reports normal home readings. Continue current medication regimen and low-sodium diet. (6) Pure hypercholesterolemia: Code(s): E78.00 - Pure hypercholesterolemia, unspecified Category: Medical Plan: Continue statin. Recommended avoidance of smoking. Recommended Mediterranean diet. (7) Chronic GERD: Code(s): K21.9 - Gastro-esophageal reflux disease without esophagitis Category: Medical Plan: Continue omeprazole 20 mg daily. Dietary recommendations reviewed. Avoid NSAIDs. (8) Anemia: Code(s): D64.9 - Anemia, unspecified Category: Medical Qualifiers: Anemia type: B12 deficiency Vitamin B12 deficiency anemia type: other B12 deficiency Qualified Code(s): D51.8 - Other vitamin B12 deficiency anemias Plan: Monitor. Continue B12 supplementation. (9) Right foot pain: Code(s): M79.671 - Pain in right foot Category: Medical Plan: Check xray. Referred to Dr. Salas. Plan Follow up in 3 months for diabetes. Orders: Orders XR calcaneus RT min 2V Today M79.671 - Pain in right foot Vitamin B12 and Folate Today D64.9 - Anemia, unspecified, E11.59 - Type 2 diabetes mellitus with other circulatory complications, E53.8 - Deficiency of other specified B group vitamins, I10 - Essential (primary) hypertension, I48.0 - Paroxysmal atrial fibrillation, I73.9 - Peripheral vascular disease, unspecified Complete Blood Count Auto Diff Today E11.59 - Type 2 diabetes mellitus with other circulatory complications, E53.8 - Deficiency of other specified B group vitamins, I10 - Essential (primary) hypertension, I48.0 - Paroxysmal atrial fibrillation, I73.9 - Peripheral vascular disease, unspecified Hemoglobin A1c Today E11.59 - Type 2 diabetes mellitus with other circulatory complications, E11.9 - Type 2 diabetes mellitus without complications, E53.8 - Deficiency of other specified B group vitamins, I10 - Essential (primary) hypertension, I48.0 - Paroxysmal atrial fibrillation, I73.9 - Peripheral vascular disease, unspecified MM screening mammo BI Today Z12.31 - Encounter for screening mammogram for malignant neoplasm of breast AMB Hemoglobin A1c Today E11.59 - Type 2 diabetes mellitus with other circulatory complications Vitamin D 25-OH (D2 and D3) Today E11.59 - Type 2 diabetes mellitus with other circulatory complications, E53.8 - Deficiency of other specified B group vitamins, I10 - Essential (primary) hypertension, I48.0 - Paroxysmal atrial fibrillation, I73.9 - Peripheral vascular disease, unspecified, M85.80 - Other specified disorders of bone density and structure, unspecified site Microalbumin, Random (w Creat) Today E11.59 - Type 2 diabetes mellitus with other circulatory complications, E11.9 - Type 2 diabetes mellitus without complications, E53.8 - Deficiency of other specified B group vitamins, I10 - Essential (primary) hypertension, I48.0 - Paroxysmal atrial fibrillation, I73.9 - Peripheral vascular disease, unspecified Comprehensive Met. Panel Today E11.59 - Type 2 diabetes mellitus with other circulatory complications, E53.8 - Deficiency of other specified B group vitamins, I10 - Essential (primary) hypertension, I48.0 - Paroxysmal atrial fibrillation, I73.9 - Peripheral vascular disease, unspecified Lipid Panel Today E11.59 - Type 2 diabetes mellitus with other circulatory complications, E53.8 - Deficiency of other specified B group vitamins, E78.5 - Hyperlipidemia, unspecified, I10 - Essential (primary) hypertension, I48.0 - Paroxysmal atrial fibrillation, I73.9 - Peripheral vascular disease, unspecified Referrals Orthopedics Referral M79.671 - Pain in right foot
[2024-10-16 09:14] VITALS: BP 138/70; PULSE 62; TEMP 36.8; O2SAT 98; BMI 24.7
--- OUTSIDE RECORDS SUMMARY | 2024-10-16 09:22 | XMS_ITS | Patient Health Record ---
Author Organization [facility] Address [address] [place] [address] [address] [place] [address] Care Team Providers Care Ball Mill Operator Name Role Phone Chelsea Mcdaniel Vito [phone] Allergies Allergen (clinical drug ingredient) Drug/Non Drug Allergy documented on EMR Reaction Allergy Type Onset Date Status Ciprofloxacin Skin Rash/Diarrhea Drug Allergy Active Penicillin Skin Rash Drug Allergy Active Results Component Value Reference Range Notes PDF Report Reviewed date:05/26/2024 08:13:38 AM Interpretation: Performing Lab:[facility] [address] [place] [address], Phone - [phone], Director - Sinai Notes/Report: Clinical Information:SRC:UC PDF Report Reviewed date:05/15/2024 12:29:03 PM Interpretation: Performing Lab:[facility], Phone - [phone], Director - Tyradry Notes/Report: Clinical Information:SRC: URINE Urine Culture, Routine-[id number] Reviewed date:05/15/2024 02:10:31 PM Interpretation: Performing Lab:[facility] [address] [place] [address], Phone - [phone], Director - MDJodry Notes/Report: Clinical Information:SRC: URINE Clinical Information:SRC: URINE [...] S Tetracycline S Tobramycin S Trimethoprim/Sulfa S Urinalysis, Complete-[id number] Reviewed date:05/15/2024 12:46:26 PM Interpretation: Performing Lab:[facility] [place], [address] [facility], Phone - [phone], Director - Sinai Notes/Report: Clinical Information:SRC: URINE Clinical Information:SRC: URINE Specific Sc[place]ey 1.014 1.005-1.030 pH 7.5 5.0-7.5 Urine-Color Yellow [...] None seen /lpf Bacteria Many None seen/Few Urinalysis Reviewed date:05/13/2024 11:40:32 AM Interpretation: Performing Lab: Notes/Report: NITRITE NEG PH 5.0 PROTEIN LARGE S.G 1.020 WBC POSITIVE(LG) GLUCOSE NEG KETONES NEG UROBILINOGEN NEG BILIRUBIN NEG BLOOD LARGE Urinalysis Reviewed date:06/17/2024 11:40:28 AM Interpretation: Performing Lab: Notes/Report: NITRITE Neg PH 5.0 PROTEIN Small S.G 1.015 WBC Moderate GLUCOSE Neg KETONES Neg UROBILINOGEN Neg BILIRUBIN Neg BLOOD Large Urinalysis, Complete-[id number] Reviewed date:06/20/2024 08:51:58 AM Interpretation: Performing Lab:[facility] [place], [address] [facility], [place], Phone - [phone], Director - Sinai Notes/Report: Specific [place]ey 1.013 1.005-1.030 pH 5.5 5.0-7.5 Urine-Color Yellow [...] Bacteria None seen None seen/Few Urine Culture, Routine-[id number] Reviewed date:06/19/2024 06:32:07 PM Interpretation: Performing Lab:[facility] [place], [address] [place] [address], Phone - [phone], Director - MDJodry Notes/Report: Urine Culture, Routine Final report Result 1 No growth PDF Report Reviewed date:06/19/2024 06:31:52 PM Interpretation: Performing Lab:[facility], [address] [place] [address], Phone - [phone], Director - [facility] Notes/Report: Urine Culture, Routine-86234 7 Reviewed date:05/26/2024 08:15:32 AM Interpretation: Performing Lab:[facility] [place], Phone - [phone], Director - [facility] Notes/Report: Clinical Information:SRC: Clinical Information:SRC:UC Urine Culture, Routine Final report Result 1 No growth Urinalysis, Complete-[id number] Reviewed date:05/30/2024 02:42:33 PM Interpretation: Performing Lab:[facility] [place], [address] [place] [address], Phone - [phone], Director - MDJodry Notes/Report: Clinical Information:SRC:UC Clinical Information:SRC:UC Specific Sc[place]ey 1.018 1.005-1.030 pH 6.5 5.0-7.5 Urine-Color Warrick Yellow Appearance Cloudy Clear WBC Esterase 1+ [...] seen /lpf Bacteria None seen None seen/Few Reason For Referral No Information Medications Medication [...] Status Risk Notes Problem Postmenopausal atrophic vaginitis (81845891) Postmenopausal atrophic vaginitis (N95.2) Active confirmed Problem Incomplete uterovaginal prolapse (502748143) Incomplete uterovaginal prolapse (N81.2) Active confirmed Problem Herniation of rectum into vagina (493730767) Rectocele (N81.6) Active confirmed Problem Urinary incontinence (843466915) Unspecified urinary incontinence (R32) Active confirmed Problem Disorder of bone (91843726) Other specified disorders of bone density and structure, 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) Active confirmed Problem Cystocele (420802883) Cystocele, unspecified (N81.10) Active confirmed Problem Uterovaginal prolapse (08055900) Uterovaginal prolapse, unspecified (N81.4) Active confirmed Problem Functional urinary incontinence (740536047) Functional urinary incontinence (R39.81) Active confirmed Problem Type II diabetes mellitus without complication (326968013) Diabetes mellitus without mention of complication, type II or unspecified type, not stated as uncontrolled (250.00) Active confirmed Major Problem Hyperlipidemia (03055768) Other and unspecified hyperlipidemia (272.4) Active confirmed Major Problem Benign essential hypertension (1118918) Essential hypertension, benign (401.1) Active confirmed Major Problem Atrial fibrillation (42887739) Atrial fibrillation (427.31) Active confirmed Major Problem Menopausal symptom (77698300) Symptomatic menopausal or female climacteric states (627.2) Active confirmed Major Problem Postmenopausal atrophic vaginitis (64491681) Postmenopausal atrophic vaginitis (627.3) Active confirmed Diag Problem Gynecological examination normal (948995389266427) Routine gynecological examination (V72.31) Active confirmed Major Problem Screening for malignant neoplasm of colon (434369748) Special screening for malignant neoplasms, colon (V76.51) Active confirmed Major Vital Signs Temperature 98.1 degrees Fahrenheit 06/17/2024 Blood pressure diastolic 70 mm Hg 06/17/2024 Height 61.25 in 06/17/2024 Blood pressure systolic 118 mm Hg 06/17/2024 Weight 137 lbs 06/17/2024 BMI 25.67 kg/m2 06/17/2024 Encounters Encounter Location Date Provider Diagnosis [facility] [address] [place] [address] 05/13/2024 Chelsea Mcdaniel Hematuria, unspecified R31.9 and Urgency of urination R39.[address] [facility] [address] [place] [address] 06/17/2024 Chelsea Savageanueva Other microscopic hematuria R31.[address] [facility] [address] [place] [address] 05/15/2024 Chelsea Mcdaniel [facility] [address] [address] 05/15/2024 Chelsea Burgerva Urinary tract infection, site not specified N39.[address] [facility] [address] [facility] [address] [place] [address] 05/29/[address] [facility] [address] [address] 06/16/2024 Chelsea Burgerva Assessments Encounter Date Diagnosis (ICD Code) Assessment Notes Treatment Notes Treatment Clinical Notes Section Notes 05/13/2024 Hematuria, unspecified (ICD-10 - R31.9) DISCUSSED [...] UROLOGIST. 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 KEEP APPT WITH DR MARIE. Plan Of Treatment Pending Test Test Name [...] Screening 06/08/2022 Next Appt Details Provider Name:Chelsea Perdomo sandrasanjeev, 12/18/2024 09:00:00 AM, [address], [address], [place], [address], Insurance Providers Payer Name Payer Address Payer Phone Subscriber Number Group Number Insured Name Patient Relationship to Insured Coverage Start Date Coverage End Date [employer] [address] [place] [address] [phone] [id number] RESHMA KENNEDY Self - patient is the [...]
== END 2024-10-16 09:44 | disposition home or self-care (01) ==
LOC: HO.HMCFM 08:59
PROVIDERS: PCP Physician Assistant Medical; Visit Provider Physician Assistant Medical
DX: E53.8 Deficiency of other specified B group vitamins (principal); E11.59 Type 2 diabetes mellitus with other circulatory complications; I48.0 Paroxysmal atrial fibrillation; N32.81 Overactive bladder; I10 Essential (primary) hypertension; E78.00 Pure hypercholesterolemia, unspecified; K21.9 Gastro-esophageal reflux disease without esophagitis; D51.8 Other vitamin B12 deficiency anemias; M79.671 Pain in right foot

== ENCOUNTER → 2024-10-16 08:58 | Outpatient (BNVA) | payer MEDICARE, SELFPAY | PROVIDERS: PCP Physician Assistant Medical; Visit Provider Physician Assistant Medical | DX: E11.59 Type 2 diabetes mellitus with other circulatory complications (principal); I48.0 Paroxysmal atrial fibrillation; N32.81 Overactive bladder; I10 Essential (primary) hypertension; E78.00 Pure hypercholesterolemia, unspecified; K21.9 Gastro-esophageal reflux disease without esophagitis; D51.8 Other vitamin B12 deficiency anemias; M79.671 Pain in right foot | CPT/HCPCS: 83036; 96127; 99212 ==

== ENCOUNTER 2025-04-08 09:04 | Outpatient (REF) | payer MEDICARE, SELFPAY ==
--- OUTSIDE RECORDS SUMMARY | 2024-08-26 04:20 | XMS_ITS ---
Author Organization [facility] Address [address] [place] [address] Care Team Providers Care Recreation Worker Name Role Phone Chelsea Mcdaniel Unavailable [phone] REASON FOR VISIT Annual MANAGER SOURCING Physical Encounters Encounter Location Date Provider Diagnosis [facility] [address] [address] 08/26/2024 Chelsea Mcdaniel Plan Of Treatment Next Appt Details Provider Name:Chelsea pérez, 06/11/2025 11:00:00 AM, [address] [place] [address], [address] , [place], [address], Progress Notes * RENAE KENNEDYOB:1945 (79 yo F)Acc No.[id number]:08/26/2024 PROGRESS NOTES Patient: RESHMA CHONG Appointment Provider: Elvira Mcdaniel M.D. :1945 A ge:78 Y S ex:Female Date:08/26/2024 Address:[address] [place], [place] [id number] Subjective: * Chief Complaints: * 1 . Annual MANAGER SOURCING Physical. * Medical History: Objective: * Vitals: Assessment: Plan: * Treatment: * Images: Billing Information: * Visit Code: * Procedure Codes: * Electronic signature of Reynaldo Mcdaniel MD on 04/08/2025 at 04:58 PM EST Sign off status: Pending * Appointment Provider: Elvira Mcdaniel M.D. Date: 0 08/26/2024 Generated for Printi ng/Medardo/Bambi on: 1 06/08/2024 04:58 PM EST
--- OUTSIDE RECORDS SUMMARY | 2024-12-18 04:00 | XMS_ITS ---
Author Organization [facility] Address [address] [place] [address] Care Team Providers Care Hazmat Truck Driver Name Role Phone Chelsea Mcdaniel Unavailable [phone] REASON FOR VISIT HR MEDICARE PE (YELLOW FORM DONE) Encounters Encounter Location Date Provider Diagnosis [facility] [address] [address] 12/18/2024 Chelsea Mcdaniel Plan Of Treatment Next Appt Details Provider Name:Chelsea pérez, 06/11/2025 11:00:00 AM, [address] [place] [address], [address], [place], [address], Progress Notes * RENAE KENNEDYOB:1945 (79 yo F)Acc No.[id number]:12/18/2024 PROGRESS NOTES Patient: RESHMA CHONG Appointment Provider: Elvira Mcdaniel M.D. :1945 A ge:79 Y S ex:Female Date:12/18/2024 Address:[address] [place], [place] [phone] Subjective: * Chief Complaints: * 1 . HR MEDICARE PE (YELLOW FORM DONE). * Medical History: Objective: * Vitals: Assessment: Plan: * Treatment: * Images: Billing Information: * Visit Code: * Procedure Codes: * Electronic signature of Reynaldo Mcdaniel MD on 04/08/2025 at 04:58 PM EST Sign off status: Pending * Appointment Provider: Elvira Mcdaniel M.D. Date: 0 12/18/2024 Generated for Yeni potts/Medardo/Bambi on: 1 06/08/2024 04:58 PM EST
--- OUTSIDE RECORDS SUMMARY | 2025-01-29 08:20 | XMS_ITS ---
Author Organization [facility] Address [address] [place] [address] Care Team Providers Care Towel Inspector Name Role Phone Chelsea Mcdaniel Unavailable [phone] REASON FOR VISIT HR MEDICARE PE (YELLOW FORM DONE) Encounters Encounter Location Date Provider Diagnosis [facility] [address] [address] 01/29/2025 Chelsea Mcdaniel Plan Of Treatment Next Appt Details Provider Name:Chelsea pérez, 06/11/2025 11:00:00 AM, [address] [place] [address], [address], [place], [address], Progress Notes * RENAE KENNEDYOB:1945 (79 yo F)Acc No.[id number]:01/29/2025 PROGRESS NOTES Patient: RESHMA CHONG Appointment Provider: Elvira Mcdaniel M.D. :1945 A ge:79 Y S ex:Female Date:01/29/2025 Address:[address] [place], [place] [phone] Subjective: * Chief Complaints: * 1 . HR MEDICARE PE (YELLOW FORM DONE). * Medical History: Objective: * Vitals: Assessment: Plan: * Treatment: * Images: Billing Information: * Visit Code: * Procedure Codes: * Electronic signature of Reynaldo Mcdaniel MD on 04/08/2025 at 04:57 PM EST Sign off status: Pending * Appointment Provider: Elvira Mcdaniel M.D. Date: 0 01/29/2025 Generated for Yeni potts/Medardo/Bambi on: 1 06/08/2024 04:57 PM EST
[2025-04-08 11:12] LABS: MANUAL DIFF FLAG NO
[2025-04-08 11:22] LABS: Hematocrit 35.4 % (37.0-47.0); Hemoglobin 11.5 g/dl (12.0-16.0); Imm Gran Abs Auto 0.02 X10*3/uL (0.00-0.03); Imm Gran Pct Auto 0.4 % (0.0-0.4); Lymphocytes Absolute Auto 1.8 X10*3/uL (1.2-4.9); Mean Corpuscular HGB Conc 32.5 g/dl (31.0-35.0); Mean Corpuscular Hemoglobin 26.9 pg (27.0-33.0); Mean Corpuscular Volume 82.7 fL (80.0-98.0); NRBC Abs Auto 0.000 X10*3/uL (0.0-0.012); NRBC Pct Auto 0.0 /100WBC (0.0-0.2); Platelet Count 273 X10*3/uL (160-400); Red Blood Count 4.28 X10*6/uL (4.20-5.50); White Blood Count 5.7 X10*3/uL (4.8-10.8)
[2025-04-08 13:27] LABS: Alanine Aminotransferase 9 U/L (0-31); Albumin Level 4.1 g/dL (3.5-5.0); Alkaline Phosphatase 78 U/L (39-117); Anion Gap 10 (12-20); Aspartate Amino Transferase 18 U/L (5-31); Blood Urea Nitrogen 15 mg/dL (9-16); Calcium 8.8 mg/dL (8.4-10.2); Carbon Dioxide 26 mmol/L (22-29); Chloride 107 mmol/L (96-108); Cholesterol 142 mg/dL (<200); Estimated Glomerular Filt Rate > 60; HDL Cholesterol 46 mg/dL (>40); Iron 51 mcg/dL (30-160); Percent Iron Saturation 18 % (15-50); Potassium 4.0 mmol/L (3.3-5.1); Sodium 139 mmol/L (135-145); Total Iron Binding Capacity 278 mcg/dL (228-428); Total Protein 6.4 g/dL (6.5-8.0); Triglycerides 85 mg/dL (<150); Unsaturated Iron Binding 227 ug/dL
[2025-04-08 15:03] LABS: Folate 5.5 ng/mL (> or = 4.0); Vitamin B12 545 pg/mL (200-900)
--- OUTSIDE RECORDS SUMMARY | 2025-04-08 16:58 | XMS_ITS | Encounter Summary ---
Author Organization [facility] Address [address] [place] [address] Care Team Providers Care Slagger Name Role Phone Sarah Coello Primary Care Provider [phone] Encounter Details Date Type Department Care Team (Late st Contact Info) Description 07/03/2024 Lab Requisition [facility] - Main Lab [address] [place] [address] Landon Monae MD [address] [facility] [address] [place] [address] Benign essential microscopic hematuria Social [...] Care Team (Late st Contact Info) Description 05/29/2025 9:00 AM EST Ancillary Procedure [facility] - [address] [address] documented as of this encounter Procedures Procedure Name Priority Date/Time Associated Diagnosis Comments AP OUTSIDE CONSULT Routine 06/26/2024 12 :00 AM EST Benign essential microscopic hematuria documented in this encounter Results * Anatomic pathology outside consult (06/26/2024 12:00 AM EST) Final Diagnosis A. Urine, Voided, ([id number]): Negative for high grade urothelial carcinoma. Results of Uro[employer]ion fluorescence in situ hybridization (FISH) testing: CEP3: Normal CEP7: Normal CEP17: Normal LSI 9p21: Normal Interpretation: Normal profile Controls stained appropriately. Note: The results are intended as a screening device and should be interpreted in association with other clinical and pathological findings. 07/09/2024 2:36 PM [facility] Clinical Information Benign essential microscopic hematuria R31.1 Urine Cytology/FISH (now) 07/09/2024 2:36 PM EST [facility] Gross Description A. Urine, Voided, ([id number]): Received one ThinPrep slide for cytology and one ThinPrep slide for UroVysion FISH 07/09/2024 2:36 PM [facility] Disclaimer Unless otherwise specified, all tissue is 10% NB formalin fixed and paraffin embedded. Technical pathology services provided by [facility] at [address], [place] [address] (CLIA #[id number]/Enid Acevedo MD, Wig Sales Consultant) 07/09/2024 2:36 PM [facility] Tissue Urine specimen from urethra / Unknown 06/26/2024 07/03/2024 12:00 PM EST us Landon Monae MD LAB PATHOLOGY ORDERABLES Final Result [facility] [address] [place] [address], documented in this encounter Visit Diagnoses Diagnosis Benign essential microscopic hematuria documented in this encounter Care Teams Slagger Relationship Specialty Start Date End Date Sarah Coello PA [address] [place] [address] PCP - General 06/19/23 documented as of this encounter
--- OUTSIDE RECORDS SUMMARY | 2025-04-08 16:58 | XMS_ITS | Encounter Summary ---
Author Organization [facility] Address [address] [place] [address] Care Team Providers Care Technical Internship Name Role Phone Sarah Coello Primary Care Provider [phone] Encounter Details Date Type Department Care Team (Late st Contact Info) Description 06/26/[address] [facility] - Main Lab [address] [place] [address] Landon Monae MD [address] [facility] [address] [place] [address] Urinary tract infection, site not specified Social [...] Description 05/29/2025 9:00 AM EST Ancillary Procedure [facility] - [address] [place] [address] documented as of this encounter Procedures Procedure Name Priority Date/Time Associated Diagnosis Comments CULTURE URINE Routine 06/26/2024 12:00 AM EST Urinary tract infection, site not specified documented in this encounter Results * Culture urine (06/26/2024 12:00 AM EST) Culture, Urine No growth 06/27/2024 1:20 PM EST [facility] Urine Urine specimen obtained by clean catch procedure / Unknown 06/26/2024 06/26/2024 6:57 PM EST us Landon Monae MD LAB MICROBIOLOGY - GENERA L ORDERABLES Final Result [facility] [address] [place] [address], documented in this encounter Visit Diagnoses Diagnosis Urinary tract infection, site not specified documented in this encounter Care Teams Technical Internship Relationship Specialty Start Date End Date Sarah Coello PA [address] [place] [address] PCP - General 06/19/23 documented as of this encounter
--- OUTSIDE RECORDS SUMMARY | 2025-04-08 16:58 | XMS_ITS ---
Author Name [facility] Organization [facility] Care Team Organization Name Specialty Phone Email Start Date End Da te [facility] 03/28/2022 01/07/2024
--- OUTSIDE RECORDS SUMMARY | 2025-04-08 16:58 | XMS_ITS | Patient Health Record ---
Author Organization [facility] Address [address] [place] [address] [address] [place] [address] Care Team Providers Care Vp Software Engineering Name Role Phone Chelsea Mcdaniel Unavailable [phone] Allergies Allergen (clinical drug ingredient) Drug/Non Drug Allergy documented on EMR Reaction Allergy Type Onset Date Status Ciprofloxacin Skin Rash/Diarrhea Drug Allergy Active Penicillin Skin Rash Drug Allergy Active Results Component Value Reference Range Notes Urinalysis, Complete-[id number] Reviewed date:05/15/2024 12:46:26 PM Interpretation: Performing Lab:[facility], [facility], Phone - [phone], Director - [place] Notes/Report: Clinical Information:SRC: URINE Clinical Information:SRC: URINE Specific Adger 1.014 1.005-1.030 pH 7.5 5.0-7.5 Urine-Color Yellow [...] /lpf Bacteria Many None seen/Few Urine Culture, Routine-[id number] Reviewed date:05/15/2024 02:10:31 PM Interpretation: Performing Lab:[facility], [address] [facility], [place], Phone - [phone], Director - [place] Notes/Report: Clinical Information:SRC: URINE [...] Tetracycline S Tobramycin S Trimethoprim/Sulfa S Urinalysis, Complete-[id number] Reviewed date:05/30/2024 02:42:33 PM Interpretation: Performing Lab:[facility], [facility], Phone - [phone], Director - [place] Notes/Report: Clinical Information:SRC: Clinical Information:SRC: Specific Adger 1.018 1.005-1.030 pH 6.5 5.0-7.5 Urine-Color [place] Yellow Appearance Cloudy Clear WBC Esterase 1+ [...] Bacteria None seen None seen/Few Urine Culture, Routine-[id number] Reviewed date:05/26/2024 08:15:32 AM Interpretation: Performing Lab:[facility], [facility], [place], Phone - [phone], Director - [place] Notes/Report: Clinical Information:SRC: Clinical Information:SRC: Urine Culture, Routine Final report Result 1 No growth PDF Report Reviewed date:05/26/2024 08:13:38 AM Interpretation: Performing Lab:[facility] [place], [address] [place] [address], [place], Phone - [phone], Director - [place] Notes/Report: Clinical Information:SRC:UC PDF Report Reviewed date:06/19/2024 06:31:52 PM Interpretation: Performing Lab:[facility] [place], [address] [place] [address], [place], Phone - [phone], Director - [place] Notes/Report: Urine Culture, Routine-[id number] Reviewed date:06/19/2024 06:32:07 PM Interpretation: Performing Lab:[facility] [place], [address] [place] [address], [place], Phone - [phone], Director - [place] Notes/Report: Urine Culture, Routine Final report Result 1 No growth Urinalysis, Complete-[id number] Reviewed date:06/20/2024 08:51:58 AM Interpretation: Performing Lab:[facility] [place], [address] [place] [address], [place], Phone - [phone], - [place] Notes/Report: Specific Adger 1.013 1.005-1.030 pH 5.5 5.0-7.5 Urine-Color Yellow [...] seen /lpf Bacteria None seen None seen/Few Urinalysis Reviewed date:06/17/2024 11:40:28 AM Interpretation: Performing Lab: Notes/Report: NITRITE Neg PH 5.0 PROTEIN Small S.G 1.015 WBC Moderate GLUCOSE Neg KETONES Neg UROBILINOGEN Neg BILIRUBIN Neg BLOOD Large PDF Report Reviewed date:05/15/2024 12:29:03 PM Interpretation: Performing Lab:[facility] [place], [address] [place] [address], [place], Phone - [phone], - [place] Notes/Report: Clinical Information:SRC: URINE Urinalysis Reviewed date:05/13/2024 11:40:32 AM Interpretation: Performing Lab: Notes/Report: NITRITE NEG PH 5.0 PROTEIN LARGE S.G 1.020 WBC POSITIVE(LG) GLUCOSE NEG KETONES NEG UROBILINOGEN NEG BILIRUBIN NEG BLOOD LARGE Reason For Referral No Information Medications Medication SIG (Take, Route, Frequency, Duration) Notes Start Date End Date Status Omeprazole 20 MG Oral; Duration: 90 Days Active metFORMIN HCl ER 500 MG 2 tablets with e vening meal Orally Twice a day Active Iron 325 (65 Fe) MG 1 tablet Orally Thre e times a Week; Duration: 30 day(s) 05/13/2024 Active Probiotic - as directed Orally Active Probiotic - as directed Orally 05/13/2024 Active amLODIPine Besylate 5 MG TAKE 1 TABLET BY MOUTH ONCE DAILY Oral; Duration: 90 Active Biotin - as directed 05/13/2024 Active Atenolol 25MG 1 ORAL DAILY; Duration: -3 02/05/2012 Active Lisinopril 20 MG 1 tablet Orally Once a day Unknown Dose Active Eliquis 5 MG 1 tablet Orally Twic e a day Active Premarin 0.625 MG/GM 1 GRAM Vaginal TWIC E WEEKLY; Duration: 90 days 06/07/2021 Active Myrbetriq 50 MG Oral; Duration: 30 Active Pravastatin Sodium 20 MG TAKE 1 TABLET BY MOUTH ONCE DAILY FOR 90 DAYS Oral; Duration: 90 Days Active glipiZIDE ER 2.5 MG TAKE 1 TABLET BY JAXON TH ONCE DAILY Oral; Duration: 90 Days Active Magnesium 400 MG as [...] Status Risk Notes Problem Postmenopausal atrophic vaginitis (22404217) Postmenopausal atrophic vaginitis (N95.2) Active confirmed Problem Incomplete uterovaginal prolapse (759696105) Incomplete uterovaginal prolapse (N81.2) Active confirmed Problem Herniation of rectum into vagina (851189029) Rectocele (N81.6) Active confirmed Problem Urinary incontinence (601170716) Unspecified urinary incontinence (R32) Active confirmed Problem Disorder of bone (10949036) Other specified disorders of bone density and structure, 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) Active confirmed Problem Cystocele (920086013) Cystocele, unspecified (N81.10) Active confirmed Problem Uterovaginal prolapse (01690876) Uterovaginal prolapse, unspecified (N81.4) Active confirmed Problem Functional urinary incontinence (681482289) Functional urinary incontinence (R39.81) Active confirmed Problem Type II diabetes mellitus without complication (829503083) Diabetes mellitus without mention of complication, type II or unspecified type, not stated as uncontrolled (250.00) Active confirmed Major Problem Hyperlipidemia (52975323) Other and unspecified hyperlipidemia (272.4) Active confirmed Major Problem Benign essential hypertension (8007633) Essential hypertension, benign (401.1) Active confirmed Major Problem Atrial fibrillation (97223713) Atrial fibrillation (427.31) Active confirmed Major Problem Menopausal symptom (92815433) Symptomatic menopausal or female climacteric states (627.2) Active confirmed Major Problem Postmenopausal atrophic vaginitis (47635262) Postmenopausal atrophic vaginitis (627.3) Active confirmed Diag Problem Gynecological examination normal (781168751626185) Routine gynecological examination (V72.31) Active confirmed Major Problem Screening for malignant neoplasm of colon (655904395) Special screening for malignant neoplasms, colon (V76.51) Active confirmed Major Vital Signs Temperature 98.1 degrees Fahrenheit 06/17/2024 Blood pressure diastolic 70 mm Hg 06/17/2024 Height 61.25 in 06/17/2024 Blood pressure systolic 118 mm Hg 06/17/2024 Weight 137 lbs 06/17/2024 BMI 25.67 kg/m2 06/17/2024 Encounters Encounter Location Date Provider Diagnosis [facility] [address] [phone] 05/13/2024 Chelsea Mcdaniel Hematuria, unspecified R31.9 and Urgency of urination R39.[address] [place] [phone] 06/17/2024 Chelsea Mcdaniel Other microscopic hematuria R31.29 [facility] [address] [facility] [address] [place] [phone] 05/15/2024 Chelsea Mcdaniel [facility] [address] [address] 05/15/2024 Chelsea Mcdaniel Urinary tract infection, site not specified N39.[address] [phone] 05/29/2024 Chelsea Mcdaniel [facility] [address] [address] 06/16/2024 Chelsea Perdomoueva Assessments Encounter Date Diagnosis (ICD Code) Assessment [...] UROLOGIST. 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 REASSURED HER THAT HER INCUBATOR TENDER EXAM SHOWED NO BLOOD PER VAGINA CONFIRMED BY A NEGATIVE HEMEOCCULT TEST. KEEP APPT WITH DR MARIE. Plan Of Treatment Pending Test Test Name Order Date MAMMOGRAM, SCREENING 04/22/2020 MAMMOGRAM, SCREENING 06/07/2021 MAMMOGRAM, SCREENING 08/22/2023 MAMMOGRAM, SCREENING 01/30/2020 MAMMOGRAM, SCREENING 01/02/2018 MAMMOGRAM, SCREENING 06/08/2022 BONE DENSITY 08/22/2023 BONE DENSITY 01/02/2018 BONE DENSITY 04/22/2020 BONE DENSITY 06/07/2021 BONE DENSITY 07/27/2016 MM Digital Mammo Screening 04/22/2020 MM Digital Mammo Screening 06/07/2021 MM Digital Mammo Screening 06/08/2022 MM Digital Mammo Screening 01/02/2018 MM Digital Mammo Screening 08/22/2023 Next Appt Details Provider Name:Chelsea Perdomo margaritaanna, 06/11/2025 11:00:00 AM, [address], [address], [place], [address], Insurance Providers Payer Name Payer Address Payer Phone Subscriber Number Group Number Insured Name Patient Relationship to Insured Coverage Start Date Coverage End Date [employer] [address] [place] [address] [id number] RESHMA KENNEDY Self - patient is the [...]
--- OUTSIDE RECORDS SUMMARY | 2025-04-08 16:59 | XMS_ITS | Clinical Summary ---
Author Organization [facility] [employer] [facility] Address [address] [place] [address] Phone Care Team Providers Care Drencher Name Role Phone Sarah Coello Primary Care Provider Allergies Active Allergy Reactions Criticality Noted Date Comments Atorvastatin Pain 10/31/2014 Ciprofloxacin 03/16/2022 Other reaction(s): doesn't remember diarrhea Penicillins Rash High 09/13/2005 Age 6 and broke out on rash on legs. 10/03/17: positive intradermal testing to Pre pen Sulfamethoxazole-Trimethopr im 03/16/2022 Other reaction(s): doesn't remember Rash Medications amLODIPine (NORVASC) 5 mg tablet Take 1 tablet by mouth once daily 09/03/19 23 Active clindamycin (CLEOCIN) 300 mg capsule TAKE 2 CAPSULES BY MOUTH 1 HOUR BEFORE DENTAL APPOINTMENT AND 1 CAPSULE 4 HOURS AFTER APPOINTMENT 08/18/19 23 Active ferrous fumarate 324 mg (106 mg iron) tablet Take 1 Tablet by mouth daily. Active glipiZIDE (GLUCOTROL XL) 2.5 mg 24 hr tablet Take 1 tablet (2.5 mg total) by mouth 2 (two) times a day. 09/29/19 23 Active lisinopril (PRINIVIL,ZEST RIL) 40 mg tablet Take 1 tablet by mouth once daily 12/13/19 23 Active metFORMIN XR (GLUCOPHAGE-XR ) 500 mg 24 hr tablet Take 2 tablets by mouth twice daily 09/02/19 23 Active mirabegron (MYRBETRIQ) 50 mg tablet extended release 24 hr 24 hr tablet Take by mouth. Ac tive omeprazole (PriLOSEC) [address] capsule Take 1 capsule by mouth once daily 04/24/20 22 Active FA/niacinamide /cupric ox/Zn ox (NICOTINAMIDE ZCF ORAL) Take 500 mg by mouth daily. Active pravastatin (PRAVACHOL) 20 mg tablet Take 1 tablet (20 mg total) by mouth. Pt stated PCP told her she can take this medication 2-3 times weekly Active atenoloL (TENORMIN) 50 mg tablet Take 1 tablet by mouth once daily 90 tablet 3 09/09/19 25 Active magnesium oxide (MAG-OX) 400 mg magnesium tablet Take 1 tablet by mouth once daily 90 tablet 2 11/19/19 25 Active apixaban (Eliquis) 5 mg tablet Take 1 tablet by mouth twice daily 180 tablet 3 03/23/20 25 Active apixaban (Eliquis) 5 mg tablet Take 1 tablet by mouth twice daily 12/28/19 24 025 Discontinued Active Problems Problem Noted Date Diagnosed Date Atrial fibrillation (CMS/HCC V24, CMS/HCC V28) 0 11/15/2020 Overview (08/05/2024): First episode of atrial fibrillation diagnosed in 2008. An additional episode was cardioverted after giving amiodarone. She transition to Multaq to avoid potential side effects. This was discontinued at the time of ablation in 2016. She had a cryoballoon ablation of unwell. Brief recurrence in 2021 but primarily maintaining sinus rhythm with no prolonged recurrences. Maintaining anticoagulation with Eliquis due to an elevated OPT3MO7-GSFo score based on age over 75, hypertension, diabetes and atherosclerotic plaque noted in the aorta. (CHADSVASC score is a 5). No bleeding complications. Normal renal function. No thyroid illness or history of alcohol abuse. Assessment & Plan (08/05/2024 9:41 AM EDT): Dimitry continues to do well from an atrial fibrillation standpoint having had an ablation in the past and having minimal palpitations or documented recurrences. Due to her high CAB7TP8-PPDq score we have elected to continue with Cha and we did have a discussion today regarding the presence of the Watchman device but she does not have any clear rationale for proceeding. She has been followed by a customer service officer for a small area that is at risk for bleeding. We talked about the numerous developments in atrial fibrillation with PSA should she need any recurrent ablation but for now we will continue her healthy lifestyle and monitoring for any recurrence clinically. Diverticulosis 02/10/2020 Hiatal hernia 02/10/2020 GI bleed 02/10/2020 Compression fracture of T12 vertebra ([facility] V24, [facility] V28) 06/13/2019 B12 deficiency 10/01/2018 Iron deficiency anemia 10/01/2018 Chronic seasonal allergic rhinitis 09/06/2017 Lacunar infarction ([facility] V24, [facility] V28) Controlled type 2 diabetes m ellitus without complication, without long-term current use of insulin ([facility] V24, [facility] V28) 05/03/2016 HSV infection 07/06/2014 Osteopenia 04/20/2014 Compression fracture of T6 v ertebra ([facility] V24, [facility] V28) 04/20/2014 Valvular heart disease 08/08/2011 Overview (04/28/2024): Echo 2010: Impression: mild left atrial enlargement, mild to moderate aortic, mitral and tricuspid regurgitation, upper normal pulmonary systolic pressures and normal left ventricular systolic function. Repeat echocardiogram 2016 Hypertension 07/11/2006 Overview (08/05/2024): Primary hypertension currently treated with multiple medications. No evidence of renal artery stenosis. Assessment & Plan (08/05/2024 9:42 AM EDT): Mildly elevated systolic blood pressure on today's reading but she was quite late for the visit and says she normally has better systolic blood pressure readings. She is currently on a modest dose of amlodipine, atenolol, lisinopril. Follows a low- sodium diet. Continue healthy lifestyle and medication. No changes required at this time. Esophageal reflux 09/13/2005 Hyperlipemia 09/13/2005 Migraine without aura 09/13/2005 Overview (04/28/2024): negative CAT scan 2005, chronic IMO update Encounters Date Type Department Care Team Description 03/17/2025 1:40 PM EDT Office Visit [facility] - [address] [place] [address] Fany Suarez, SY Atrial fibrillation, unspecified type (CMS/HCC V24, CMS/HCC V28) (Primary Dx); Nonrheumatic mitral valve regurgitation from Last 3 Months Immunizations Immunization Administration Dates Next Due Influenza trivalent, 0.5mL [...] TONSILLECTOMY ADENOIDECTOMY, BILATERAL MYRINGOTOMY AND TUBES PROCEDURE: CA TONSILLECTOMY & ADENOIDECTOMY <AGE 13 COLONOSCOPY 03/31/2010 PROCEDURE: CA COLONOSCOPY FLX DX W/COLLJ SPEC WHEN PFRMD OTHER SURGICAL HISTORY 10/30/2018 N/A PROCEDURE: COLONOSCOPY LESION REMOVAL; COMMENT: with EGD- Dr. Maldonado TOTAL KNEE ARTHROPLASTY 04/10/2022 Left PROCEDURE: CA ARTHRP KNE CONDYLE&PLATU MEDIAL&LAT COMPARTMENTS Medical History [...] Date Smoking Tobacco: Never Smokeless Tobacco: Never Tobacco Cessation:Counseling Given: Not Answered Alcohol Use Standard Drinks/Week Comments Yes 0 (1 standard drink = 0.6 oz pur e alcohol) Comments Unknown Sex and Gender Information Value Date Recorded Sex Assigned at Not on file Legal Sex Female 5:55 PM EST Gender Identity Not on file Sexual Orientation Not on file Obstetrics History Last Filed Vital Signs Vital Sign Reading Time Taken Comments Blood Pressure 160/82 03/17/2025 1:40 PM EDT Pulse 59 03/17/2025 1:40 PM EDT Temperature - - Respiratory Rate - - Oxygen Saturation 98% 03/17/2025 1:40 PM EDT Inhaled Oxygen Concentration - - Weight 62.7 kg (138 lb 3.2 oz) 03/17/2025 1:40 P M EDT Height 157.5 cm (5' 2 ) 03/17/2025 1:40 PM EDT Body Mass Index 25.28 03/17/2025 1:40 PM EDT Plan of Treatment Upcoming Encounters Date Type Department Care Team (Late st Contact Info) Description 05/29/2025 9:00 AM EST Ancillary Procedure [facility] - [address] [place] [address] Health Maintenance Due Date Last Done Comments Diabetes: Annual Foot Exam 1955 Diabetes: Annual Retina Eye Exam 1955 Zoster Vaccines (1 of 2) 1996 RSV Immunization Adult Patients (1 - 1-dose 75+ series) 2021 Falls Risk Assessment 04/29/2022 Hepatitis C Screening 04/29/2022 Medicare Annual Wellness Visit 04/29/2022 Social Influencers of Health Screening 04/29/2022 Diabetes: Annual Urine Albumin-Creatinine Ratio (uACR) 04/30/2022 01/03/2021 DTaP,Tdap,and Td Vaccines (3 - Td or Tdap) 05/27/2022 05/27/2012, 05/22/2006 Diabetes: Blood Sugar Control Test (HGBA1C) 08/30/2022 03/01/2022 Depression Screening 05/21/2024 COVID-19 Vaccine ( season) 2025 08/17/2020, 07/21/2020 Influenza Vaccine (#1) 2025 , 04/27/2020, 03/25/2019, Additional history exists Diabetes: Annual GFR (Glomerular Filtration Rate) 04/07/2026 04/07/2025, 03/01/2022 Hypertension/CHF/CAD Annual BMP Blood Test 04/07/2026 04/07/2025, 03/01/2022 Cholesterol Screening (Lipid Panel) 03/01/2027 03/01/2022 Osteoporosis [...] age to complete this topic Meningococcal B Vaccine Aged Out No l onger eligible based on patient's age to complete this topic RSV Immunization Patients Under 20 months Aged Out No longer eligible based on patient's age to complete this topic Varicella Vaccines Aged Out No longer eligible based on patient's age to complete this topic Procedures Procedure Name Priority Date/Time Associated Diagnosis Comments CBC WITH AUTO DIFFERENTIAL Routine 04/07/2025 10:35 AM EST Atrial fibrillation, unspecified type (CMS/HCC V24, CMS/HCC V28) COMPREHENSIVE METABOLIC PANEL Routine 04/07/2025 10:35 AM EST Atrial fibrillation, unspecified type (CMS/HCC V24, CMS/HCC V28) CBC AND DIFFERENTIAL Routine 04/07/2025 10:35 AM EST Atrial fibrillation, unspecified type (CMS/HCC V24, CMS/HCC V28) ECG 12-LEAD Routine 03/17/2025 2:21 PM EDT Atrial fibrillation, unspecified type (CMS/HCC V24, CMS/HCC V28) DXA BONE DENSITY STUDY 1+ SITS AXIAL SKEL Routine 04/04/2022 9:58 AM EST Encounter for screening for osteoporosis HEMOGLOBIN A1C Routine 03/01/2022 LIPID PANEL Routine 03/01/2022 URINE ALBUMIN CREATININE RATIO Routine 01/03/2021 from Last 3 Months or Most Recently Relevant to Health Maintenance Results * CBC auto differential (04/07/2025 10:35 AM EST) Pathologist [facility] WBC 7.1 3.4 - 10.8 x10E3/uL [facility] 1 RBC 4.39 3.77 - 5.28 x10E6/uL [facility] 1 Hemoglobin 11.7 11.1 - 15.9 g/dL [facility] 1 Hematocrit 37.1 34.0 - 46.6 % [facility] 1 MCV 85 79 - 97 fL [facility] 1 MCH 26.7 26.6 - 33.0 pg [facility] 1 MCHC 31.5 31.5 - 35.7 g/dL [facility] 1 RDW 13.4 11.7 - 15.4 % [facility] 1 Platelets 307 150 - 450 x10E3/uL [facility] 1 Neutrophils 55 Not Estab. % [facility] 1 Lymphocytes 33 Not Estab. % [facility] 1 Monocytes 8 Not Estab. % [facility] 1 Eosinophils 3 Not Estab. % [facility] 1 Basophils 1 Not Estab. % [facility] 1 Neutrophils Absolute 3.8 1.4 - 7.0 x10E3/uL [facility] 1 Lymphocytes Absolute 2.3 0.7 - 3.1 x10E3/uL [facility] 1 Monocytes Absolute 0.6 0.1 - 0.9 x10E3/uL [facility] 1 Eosinophils Absolute 0.2 0.0 - 0.4 x10E3/uL [facility] 1 Basophils Absolute 0.1 0.0 - 0.2 x10E3/uL [facility] 1 Immature Granulocytes Relative 0 Not Estab. % [facility] 1 Immature Grans (Abs) 0.0 0.0 - 0.1 x10E3/uL [facility] 1 Blood Venous blood specimen / Unknown 04/07/2025 10:35 AM EST 04/07/2025 Narrative [facility] 1 - 04/08/2025 3:06 AM EST Performed at: [address] [id number] Agriculture Inspector: Estela Garg MD, Phone: [phone] us Fany Suarez PRESSING MACHINE TENDER LAB BLOOD ORDERABLES Final R esult [facility] 1 * (ABNORMAL) Comprehensive metabolic panel (04/07/2025 10:35 AM EST) Glucose 194(H) 70 - 99 mg/dL [facility] 2 Blood Urea Nitrogen (BUN) 14 8 - 27 mg/dL [facility] 2 Creatinine 0.86 0.57 - 1.00 mg/dL [facility] 2 eGFR 69 >59 mL/min/1. 73 [facility] 2 BUN/Creatinine Ratio 16 12 - 28 [facility] 2 Sodium 140 134 - 144 mmol/L [facility] 2 Potassium 4.3 3.5 - 5.2 mmol/L [facility] 2 Chloride 103 96 - 106 mmol/L [facility] 2 Carbon Dioxide 26 20 - 29 mmol/L [facility] 2 Calcium 9.0 8.7 - 10.3 mg/dL [facility] 2 Protein Total 6.3 6.0 - 8.5 g/dL [facility] 2 Albumin 4.2 3.8 - 4.8 g/dL [facility] 2 Globulin Total 2.1 1.5 - 4.5 g/dL [facility] 2 Bilirubin Total 0.4 0.0 - 1.2 mg/dL [facility] 2 Alkaline Phosphatase 88 49 - 135 IU/L [facility] 2 Aspartate aminotransferase (AST) 16 0 - 40 IU/L [facility] 2 Alanine Aminotransferase (ALT) 9 0 - 32 IU/L [facility] 2 Blood Venous blood specimen / Unknown 04/07/2025 10:35 AM EST 04/07/2025 Narrative [facility] 2 - 04/08/2025 3:06 AM EST Performed at: 02 - [facility] [address], [address], [place] [id number] Agriculture Inspector: Matthias Morales MD, Phone: [phone] Fany Suarez PRESSING MACHINE TENDER LAB BLOOD ORDERABLES Final R esult [facility] 2 * ECG 12 lead (03/17/2025 2:21 PM EDT) Ventricular Rate ECG 59 BPM GEMUSE Atrial Rate 59 BPM GEMUSE P-R Interval 232 ms GEMUSE QRS Duration 84 ms GEMUSE Q-T Interval 418 ms GEMUSE QTc 413 ms GEMUSE P Wave [place] 59 degrees GEMUSE R [place] -23 degrees GEMUSE T [place] 19 degrees GEMUSE ECG Interpretation Sinus bradycardia with 1st degree A-V block Otherwise normal ECG When compared with ECG of 05-AUG-2024 09:20, No significant change was found GEMUSE 03/17/2025 1:46 PM EDT us Fany Suarez NP ECG ORDERABLES Final Result GEMUSE * DXA BONE DENSITY STUDY 1+ SITS AXIAL SKEL (04/04/2022 9:58 AM EST) Anatomical Region Laterality Modality Bone Densitometr y 09/16/2021 9:28 AM EDT Narrative 04/04/2022 4:24 PM EST BONE DENSITY (DEXA) Lumbar Spine T-score is -1.9. (SD relative to 20-29 y/o adult) Z-score is 0.6. (SD relative to age matched peers) This is considered osteopenia by WHO criteria. Left Hip T-score is -2.3. Z-score is -0.2. This is considered osteopenia by WHO criteria. IMPRESSION: This patient is considered to have osteopenia by WHO criteria. [facility] Department of Internal Medicine recommends using [...] to have osteopenia by WHO criteria. [facility] Department of Internal Medicine recommendsusing National [...] screening schedule based on ambrosio Stewart al., NEJMJanuary 2011 for patients with osteopenia (based on hip BMD T-score) is as follows: * advanced osteopenia (T scores -2.00 to -2.49), BMD testing every year * moderate osteopenia (T scores -1.50 to -1.99), BMD testing every 5years mild osteopenia or normal BMD (T scores -1.50 and higher), BMD testingevery 15 years Result [facility] Chelsea Mcdaniel MD IMG DXA PROCEDURES Final R esult * (ABNORMAL) Hemoglobin A1c (03/01/2022) [facility] Hemoglobin A1C 7.1(A) <=6.5 % Blood Venous blood specimen / Unknown Result [facility] Historical Provider LAB BLOOD ORDERABLES Maribell l Result * Lipid panel (03/01/2022) [facility] LDL/HDL Ratio 3 0 - 3 Triglycerides 130 0 - 150 mg/dL Cholesterol 152 0 - 200 mg/dL HDL 51 >=40 mg/dL LDL Cholesterol 75 0 - 100 mg/dL Blood Venous blood specimen / Unknown Result [facility] Historical Provider LAB BLOOD ORDERABLES Maribell l Result * Urine Albumin Creatinine Ratio (01/03/2021) [facility] Urine Albumin Creatinine Ratio abstracted Result [facility] Historical Provider HEALTH MAINTENANCE Final Result from Last 3 Months or Most Recently Relevant to Health [place] [address] [employer] [place] [employer] Advance Directives Documents on File Type Date Recorded Patient Hose Builder Expl anation Health Care Decision (hx) 04/12/2022 [...] 04/10/2022 HE ALTH CARE PROXY Care Teams Drencher Relationship Specialty Start Date End Date Sarah Coello PA [address] [place] [address] PCP - General 06/19/23
--- OUTSIDE RECORDS SUMMARY | 2025-04-08 16:59 | XMS_ITS | Data Portability ---
Author Organization [facility], [facility] Address [address] [place] [address] Care Team Providers Care Hand Etcher Helper Name Role Phone FATEMEH TAPIA Primary Care Provider Assessment No assessment recorded. Plan of Treatment Reminders Order Date Submit Date Provider Last Modified By Organization Details Last Modified Time Details Appointments None record ed. Lab None record ed. Referral occupa tional therap ist, hand referr al - Left fifth metaca rpal fractu re DIGITA L ROM ONLY 2023 024 Not available 4 14:12:31 Procedures None record ed. Surgeries None record ed. Imaging XR, hand, 3 or more view - rm 306 3v left hand 2024 025 [facility], [address], [place], [address], 5 09:59:53 XR, hand, 3 or more view - rm 301 rechec k left hand 3v 2023 024 [facility], [address], [address], [place], [address], 4 08:42:23 Medication Orders None record ed. Patient TargetsNo targets recorded. Patient Instructions Encounter Date Encounter Id Patient Instructions Last Modified By Organization Details Last Modified Time 04/23/[id number] [facility] Custom Hand Orthosis Information Sheet [address] [place] [address] Name:Dimitry Alba Left Diagnosis: Fifth metacarpal shaft [...] SOURCES: including, but not limited to, the applications intern, dryer, stove, furnace, heater, car (on a hot summer day). PETS: they like to chew the plastic. SKIN: watch for redness, blisters or any skin irritations. CLEANING: use warm soapy water, wipes or climbing guide to keep the plastic clean, cotton socks [...] orthosis has been custom fabricated by: Anjana GARCIA/Afua, CHT I understand the purpose, precautions and plan for this custom orthosis Patient Signature: Not available 04/23/2024 09:11:37 Reason for Referral Left fifth metacarpal fractu reDIGITAL ROM ONLY Referring Physician: Shanthi Cevallos, Orthopedic Surgery, [id number] Encounter Date: 04/23/2024 Results Created Date Observation Date Name Description Value Unit Range Abnormal Flag Note LastModifiedBy Organization Detail LastModifiedTime 03/28/20 24 03/28/2024 XR, foot, 3 or more view [email or web address]:/ [email or web address] ?Encry pted=s hAaTro YD8dLq bEUv6g %2BXZw aYqtaq 0bqfl% 2Fg9IQ a4ajBk vP9nXo QUaueC m3YtLR FvZlgJ JJ8mAn HZtai3 8z4581 AC0Kqa HqCUKW lKiQtr MwF INTERFACE [facility] [address], [place], [address], 03/28/2024 13:27:48 03/28/20 24 03/28/2024 XR, foot, 3 or more view [email or web address]:/ [email or web address] ?Encry pted=s hAaTro YD8dLq bEUv6g %2BXZw aYqtaq 0bqfl% 2Fg9IQ a4ajBk vP9nXo QUaueC m3YtLR FvZl JJ8mAn HZtai3 7n7693 AC0Kqa HqCUKW lKiQtr MwF INTERFACE [facility] [address], [place], [address], 03/28/2024 13:27:50 03/28/20 24 03/28/2024 XR, ankle , 2 view [email or web address]:/ [email or web address] ?Encry pted=s hAaTro YD8dLq bEUv6g %2BXZw aYqtaq 0bqfl% 2Fg9IQ a4ajBk vP9nXo QUaueC m3YtLR FvZl JJ8mAn HZtai3 8i1959 AC0Kqa HqCUKW iKiQtr MwF INTERFACE [facility] [address], [place], [address], 03/28/2024 13:28:45 03/28/20 24 03/28/2024 XR, ankle , 2 view [email or web address]:/ [email or web address] ?Encry pted=s hAaTro YD8dLq bEUv6g %2BXZw aYqtaq 0bqfl% 2Fg9IQ a4ajBk vP9nXo QUaueC m3YtLR FvZlgJ JJ8mAn HZtai3 4l9497 AC0Kqa HqCUKW iKiQtr MwF INTERFACE [facility] [address], [place], [address], 03/28/2024 13:28:47 03/31/20 24 03/31/2024 XR, hand, 3 or more view [email or web address]:/ [email or web address] ?Encry pted=s hAaTro YD8dLq bEUv6g %2BXZw aYqtaq 0bqfl% 2Fg9IQ a4ajBk vP9nXo QUaueC m3YtLR FvZlgJ JJ8mAn HZtai3 8n9239 AC0Kqa HWEVaG hKiQtr MwF INTERFACE [facility] [address] [facility] [address], [place], [address], 03/31/2024 10:29:17 03/31/20 24 03/31/2024 XR, hand, 3 or more view [email or web address]:/ [email or web address] ?Encry pted=s hAaTro YD8dLq bEUv6g %2BXZw aYqtaq 0bqfl% 2Fg9IQ a4ajBk vP9nXo QUaueC m3YtLR FvZlgJ JJ8mAn HZtai3 6z3575 AC0Kqa HWEVaG hKiQtr [facility] INTERFACE [facility] [address] [facility] [address], [place], [address], 03/31/2024 10:29:19 04/13/20 24 04/11/2024 CT, foot, w/o contr ast No observ ation record ed. [email or web address] [facility] [address] [facility] [address], [place], [address], 04/14/2024 15:32:41 04/15/20 24 03/23/2024 radio logy overr ead* No observ ation record ed. [email or web address] [facility] [address], [place], [address], 04/15/2024 11:33:13 04/23/20 24 04/23/2024 XR, hand, 3 or more view [email or web address]:/ [email or web address] ?Encry pted=s hAaTro YD8dLq bEUv6g %2BXZw aYqtaq 0bqfl% 2Fg9IQ a4ajBk vP9nXo QUaueC m3YtLR FvZlgJ JJ8mAn HZtai3 6u2604 AC0Kqa XqHVaK gKiQtr MwF INTERFACE [facility] [address], [address], 04/23/2024 08:36:02 04/23/20 24 04/23/2024 XR, hand, 3 or more view [email or web address]:/ [email or web address] ?Encry pted=veronica Hogue YD8dLq bEUv6g %2BXZw aYqtaq 0bqfl% 2Fg9IQ a4ajBk vP9nXo QUaueC m3YtLR FvZlgJ JJ8mAn HZtai3 0r7618 AC0Kqa XqHVaK gKiQtr [facility] INTERFACE [address], [address], 04/23/2024 08:36:04 Result Notes Documentation Provider Name and Address Organization Details Recorded Time Xr, Hand, 3 Or More View : [email or web address]? Encrypted=vfNeEisQF2yUijM Uv6g%9BEUbwDyroc1fmeg%2Fg 2WMc5koGrsI8nRsOTbzmNi5Aq COQbLydIOG1sQdIDwar08v679 7ZW3LuqUyXQfOqPyNajAxN Not Available [facility] 04/23/2024 08:36: 02 Xr, Hand, 3 Or More View : [email or web address] Encrypted=tlUqIxxKS3oQetW Uv6g%7UQDpbEvlca5kxaw%2Fg 4YDd4rzTjeF3uEzZEnsoNi5Sc DSVcMlnXZE4pUwVVhax81c818 7DB9QsdQhCCoRbHeUbnRnV Not Available [facility] 04/23/2024 08:36: 04 Medical Equipment None Reported. Allergies Allergen ID Allergen Name Allergen Category Reaction Reaction Severity Criticality Documentation Date Start Date Code Code System Note Provider Name and Address Organization Details Recorded Time 335676 Product containin g penicilli n (product) medicatio n Not available Not available Not available 03/28/2024 78440 8001 SNOMED rash Charu schmitz [place] - [facility] 14:38:45 Medications Name Sig Start Date [...] Updated DateTime 05/26/2024 157.48 cm 25.2 kg/m2 31552.75 g Randy Ramirez [facility] 05/26/2024 09:33:37 Date Recorded Body height Body mass index (BMI) Body weight Provider Name and Address Organization Details Last Updated DateTime 04/14/2024 157.48 cm 25.2 kg/m2 58574.75 g Charu khoury [facility] 04/14/2024 09:01:46 Date Recorded Body height Body mass index (BMI) Body weight Provider Name and Address Organization Details Last Updated DateTime 04/23/2024 157.48 cm 25.2 kg/m2 99608.75 g VEENA YU [facility] 04/23/2024 08:32:42 Date Recorded Body height Body mass index (BMI) Body weight Provider Name and Address Organization Details Last Updated DateTime 05/05/2024 157.48 cm 25.2 kg/m2 79681.75 g Charu khoury [facility] 05/05/2024 09:06:06 Social History None recorded. Functional Status None recorded. Mental Status None recorded. Family History Nothing Reported. Medical History No medical history recorded. Gynecological HistoryNo gynecological history recorded. Obstetrics History GPAL:G 0 P 0 0 0 0 Past Encounters Encounter ID Performer Location Encounter Start Date Encounter Closed Date Diagnosis/Indication Diagnosis SNOMED-CT Code Diagnosis ICD10 Code Diagnosis IMO Codes Diagnosis Note [id number] MD Amy Parker [address] [place] [address] 03/28/2024 13:13:40 04/27/2024 16:46:49 Pain in right foot 8834694929 48556 M79.671 981561 Subluxatio n of joint of right foot 7342592434 2975410 S93.311A [id number] MD Amy Mckinney [address] [place] [address] 03/31/2024 10:17:01 04/29/2024 12:03:09 Pain of left hand 3479884440 82354 M79.642 968154 Closed fra cture of shaft of fifth metacarpal bone of left hand 9245409426 9646249 S62.327A [id number] Marie Salas MD [facility] [address] [place] [address] 04/14/2024 07:55:51 05/13/2024 08:01:39 Pain in right foot 1648121170 62089 M79.671 596247 Subluxatio n of joint of right foot 3086388352 4063925 S93.311D [id number] Shanthi croft PA-C [facility] 3[facility] [address] [place] [address] 04/23/2024 08:20:26 05/12/2024 11:38:52 Pain of left hand 8243282682 46334 M79.642 779561 Closed fra cture of shaft of fifth metacarpal bone of left hand 8244913812 6928330 S62.327D [id number] Anjana Stoner, OTR/L,CHT [facility] [address] [address] [place] [address] 04/23/2024 09:07:51 04/23/2024 09:59:55 Closed fracture of shaft of fifth metacarpal bone of left hand 5231706917 1148217 S62.357D 70025775 Today to protect the fracture site and [...] maintain alignment of the involved structures . [id number] Marie Salas MD [facility] [address] [place] [address] 05/05/2024 08:50:12 05/30/2024 09:52:36 Pain in right foot 2347338263 06421 M79.671 802312 Contusion of right foot 2647655284 4068611 S90.31XD [id number] DC [facility] - [facility] [address]rd floor [address] [address] 05/26/2024 09:24:08 06/05/2024 12:46:53 Pain of left hand 4875875060 10535 M79.642 660580 Closed fra cture of shaft of fifth metacarpal bone of left hand 9407494771 6087994 S62.327D [id number] Health Concerns Section Related Observation LastModified by Organization Detai ls LastModified Time None Recorded Concern Status LastModified by Organization Details LastModified Time None Recorded Advance Directives Directive None Recorded Payers Insurance Date Sequence Insurance Name Policy Number Policy Ruby Covered Member ID Ruby Member ID Guarantor Name 06/05/2024 1 [employer] - MEDICARE ADVANTAGE PLAN (MEDICARE REPLACEMENT HMO) [id number] Dimitry Alba [id number] Dimitry Alba Notes Date Note Type Note [...] imaging was unavailable to us here at [facility] however our repeat imaging here suggested possible [...] displaced bony fragment or possible arterial calcification Impression: Status post right foot injury 03/23/2024 Midfoot contusion Plan: I reviewed CT scan findings at length with the patient and her . Fortunately, CT scan demonstrates absolutely no evidence of fracture. I suspect the degree of swelling and ecchymoses is related to venous insufficiency as well as the fact that the patient is on Eliquis currently I have recommended she continue to use a compression sock to control swelling. I am concerned with her trying to fit her foot into a constrictive sneaker, and I have recommended she use a postoperative sandal until her swelling subsides further. I have prescribed her a flat postoperative sandal in office today We will see her back in office in about 3 weeks for repeat evaluation Marie Salas MD [address] [place], [place] [address] [address], [place], [address], [facility] 04/20/2024 14:20:00 04/23/2024 text/html ROS as noted in the HPI I am seeing this patient under the [...] reviewed, updated and is located in the patient s chart.Examination: Healthy appearing patient in no [...] and reviewed today at [facility]: PA, lateral, oblique views left hand revealed [...] our office immediately. Shanthi Cevallos PA-C [address], [place], [address], [facility] 04/28/2024 16:19:57 04/23/2024 text/html Close displaced fracture of the shaft of the fifth metacarpal bone on the left hand cast was removed today and she is referred for a custom hand splint. The injury was 4 weeks ago. RADHA Galicia/Afua,CHT [address], [place], [address], [facility] 04/23/2024 09:28:51 05/05/2024 text/html Chief complaint: [...] displaced bony fragment or possible arterial calcification Impression: Status post right foot injury 03/23/2024 Midfoot contusion with resolving hematoma Plan: Patient continues to progress well in her recovery. We will continue to monitor her hematoma. She will contact us if she develops any increasing pain or skin breakdown in this region. I did remind her that these types of hematomas can take 3 to 4 months to resolve completely She can continue to wear comfortable shoes as tolerated She will follow-up with us on an as-needed basis moving forward. She will contact us if any further issues arise Marie Salas MD [address] [place], [place] [address], [place], [address], [facility] 05/05/2024 16:56:53 05/26/2024 text/html ROS as noted in the HPI I am seeing this patient under the [...] reviewed, updated and is located in the patient s chart.Examination: Healthy appearing patient in no [...] and reviewed today at [facility]: PA, lateral, oblique views left hand revealed [...] our office immediately. Shanthi Cevallos PA-C [address] [facility] [address], [place], [address], [facility] 05/26/2024 12:04:25 OBGyn Episode No OBEpisode recorded.
[2025-04-13 06:18] LABS: Vitamin D 25-OH, D2 <4 ng/mL; Vitamin D 25-OH, D3 20 ng/mL; Vitamin D 25-OH, Total 20 ng/mL (30-100)
== END 2025-04-08 09:05 | disposition home or self-care (01) ==
LOC: HO.WFDLDS 09:04
PROVIDERS: Visit Provider Physician Assistant Medical
DX: I10 Essential (primary) hypertension (principal); E11.51 Type 2 diabetes mellitus with diabetic peripheral angiopathy without gangrene; I48.0 Paroxysmal atrial fibrillation; E53.8 Deficiency of other specified B group vitamins; M85.80 Other specified disorders of bone density and structure, unspecified site; E78.5 Hyperlipidemia, unspecified; D64.9 Anemia, unspecified
CPT/HCPCS: 36415; 80053; 80061; 82043; 82306; 82570; 82607; 82746; 83036; 83540; 85025

== ENCOUNTER 2025-04-09 09:08 | Outpatient (AMB) | payer MEDICARE, SELFPAY ==
--- OUTSIDE RECORDS SUMMARY | 2024-08-26 04:20 | XMS_ITS ---
Author Organization [facility] Address [address] [place] [address] Care Team Providers Care Accounts Collector Name Role Phone Chelsea Mcdaniel Unavailable [phone] REASON FOR VISIT Annual WHIP SAWYER Physical Encounters Encounter Location Date Provider Diagnosis [facility] [address] [address] 08/26/2024 Chelsea Mcdaniel Plan Of Treatment Next Appt Details Provider Name:Chelsea pérez, 06/11/2025 11:00:00 AM, [address] [place] [address], [address] , [place], [address], Progress Notes * RENAE KENNEDYOB:1945 (79 yo F)Acc No.[id number]:08/26/2024 PROGRESS NOTES Patient: RESHMA CHONG Appointment Provider: Elvira Mcdaniel M.D. :1945 A ge:78 Y S ex:Female Date:08/26/2024 Address:[address] [place], [place] [id number] Subjective: * Chief Complaints: * 1 . Annual WHIP SAWYER Physical. * Medical History: Objective: * Vitals: Assessment: Plan: * Treatment: * Images: Billing Information: * Visit Code: * Procedure Codes: * Electronic signature of Reynaldo Mcdaniel MD on 04/09/2025 at 11:22 AM EST Sign off status: Pending * Appointment Provider: Elvira Mcdaniel M.D. Date: 0 08/26/2024 Generated for Printi ng/Medardo/Bambi on: 1 06/09/2024 11:22 AM EST
--- OUTSIDE RECORDS SUMMARY | 2024-12-18 04:00 | XMS_ITS ---
Author Organization [facility] Address [address] [place] [address] Care Team Providers Care Mill And Coal Transport Operator Name Role Phone Chelsea Mcdaniel Unavailable [phone] REASON FOR VISIT HR MEDICARE PE (YELLOW FORM DONE) Encounters Encounter Location Date Provider Diagnosis [email or web address] [address] [address] 12/18/2024 Chelsea Mcdanile Plan Of Treatment Next Appt Details Provider Name:Chelsea pérez, 06/11/2025 11:00:00 AM, [address] [place] [address], [place], [address], Progress Notes * RENAE KENNEDYOB:1945 (79 yo F)Acc No.[id number]:12/18/2024 PROGRESS NOTES Patient: RESHMA CHONG Appointment Provider: Elvira Mcdaniel M.D. :1945 A ge:79 Y S ex:Female Date:12/18/2024 Address:[address] [place], [place] [phone] Subjective: * Chief Complaints: * 1 . HR MEDICARE PE (YELLOW FORM DONE). * Medical History: Objective: * Vitals: Assessment: Plan: * Treatment: * Images: Billing Information: * Visit Code: * Procedure Codes: * Electronic signature of Reynaldo Mcdaniel MD on 04/09/2025 at 11:22 AM EST Sign off status: Pending * Appointment Provider: Elvira Mcdaniel M.D. Date: 0 12/18/2024 Generated for Yeni potts/Medardo/Raduitting on: 1 06/09/2024 11:22 AM EST
--- OUTSIDE RECORDS SUMMARY | 2025-01-29 08:20 | XMS_ITS ---
Author Organization [facility] Address [address] [place] [address] Care Team Providers Care Regional Tanker Truck Driver Name Role Phone Chelsea Mcdaniel Unavailable [phone] REASON FOR VISIT HR MEDICARE PE (YELLOW FORM DONE) Encounters Encounter Location Date Provider Diagnosis [facility] [address] [address] 01/29/2025 Chelsea Mcdaniel Plan Of Treatment Next Appt Details Provider Name:Chelsea pérez, 06/11/2025 11:00:00 AM, [address] [place] [address], [address], [place], [address], Progress Notes * RENAE KENNEDYOB:1945 (79 yo F)Acc No.[id number]:01/29/2025 PROGRESS NOTES Patient: RESHMA CHONG Appointment Provider: Elvira Mcdaniel M.D. :1945 A ge:79 Y S ex:Female Date:01/29/2025 Address:[address] [place], [place] [phone] Subjective: * Chief Complaints: * 1 . HR MEDICARE PE (YELLOW FORM DONE). * Medical History: Objective: * Vitals: Assessment: Plan: * Treatment: * Images: Billing Information: * Visit Code: * Procedure Codes: * Electronic signature of Reynaldo Mcdaniel MD on 04/09/2025 at 11:20 AM EST Sign off status: Pending * Appointment Provider: Elvira Mcdaniel M.D. Date: 0 01/29/2025 Generated for Yeni potts/Medardo/Raduitting on: 1 06/09/2024 11:20 AM EST
--- NOTE | 2025-04-09 09:14 | MHC.PC.OV ---
Vital Signs 04/09/25 09:18 04/09/25 09:37 Height 5 ft 2 in Weight 135 lb 4 oz BMI 24.7 BP 122/64 Blood Pressure Location Lt brachial Position Sitting Respiration 15 Pulse 47 L 64 Pulse Source Pulse Oximeter Palpation Temp 98 F Temp Source Temporal Artery Scan Pulse Oximetry (%) 98 Oxygen Delivery Method Room Air Intake Visit Reasons: Blood sugar Intake Note: Dimitry presents in the office today for a follow up to her diabetes. Allergies penicillin V Allergy (Unknown, Verified 04/09/25 09:16) Rash Tobacco use date assessed: 04/09/25 Fall risk assessment: No Falls in past year Last assessed Fall Risk: 04/09/25 Dental Screening Dental Screen Date: 04/09/25 Did you have a dental visit in the last 12 months?: Yes Did you have a dental problem in the last 6 months where you did not have access to dental care?: No Was dental information given to patient?: Patient has dentist HPI HPI Comments History of Present Illness Details This is a 79-year-old female with a past medical history of hypertension, hyperlipidemia, type 2 diabetes, paroxysmal atrial fibrillation, GERD and anemia presenting for follow up. She is accompanied by her . Type 2 diabetes is treated with Glipizide and metformin. Hemoglobin a1c is 6.8%. She has annual eye exams at [facility]. Her blood pressure at home <130/80. Cardiovascular- followed by Dr. Acuña for atrial fibrillation. She had 3-4 episodes of atrial fibrillation so they discussed moving forward with another ablation. She sees Dr. Lovell for PVD. No chest pain, dizziness, SOB or syncope. Her current regimen is amlodipine, Eliquis, atenolol, lisinopril, pravastatin. Her heart rate was initially recorded as 47 with a pulse oximeter when she came into the visit. Her hands were very cold from being outside. She denied dizziness, chest pain, shortness of breath. I rechecked her pulse manually and then again with a pulse oximeter once her hands had warmed, and her heart rate is actually 64. GERD is treated by Dr. Maldonado. Anemia is stable. She is up-to-date with colonoscopy and EGD. On her last scope they found a small erosion which they believe was contributing to anemia. It was not actively bleeding. She takes omeprazole. She avoids NSAIDs. Overactive bladder is treated with Myrbetriq. She has seen Dr. Monae for this. She has osteoarthritis in her knees. She had a left knee replacement with Dr. Chaidez. Manager Instrumentation is Dr. Mcdaniel. Due for mammogram. Ordered again and sent to [facility]. Defers bone density test. ROS: Constitutional: No unexplained weight loss, fever, chills, fatigue or night sweats. Eyes: No vision changes, blurry vision, double vision Respiratory: No shortness of breath, cough or sputum production. Cardiovascular: No chest pain, chest pressure or chest discomfort.+stable lower extremity edema-wears compression stockings. Gastrointestinal: No anorexia, nausea, vomiting or diarrhea. No abdominal pain or blood in stool. Neurologic: No headache, dizziness, syncope Physical exam: Constitutional: Alert, in no distress. Head: Normocephalic. Eyes: Pupils are equal, round and reactive to light. Neck: Supple, Full range of motion. No lymphadenopathy. Respiratory: Clear to auscultation. Cardiovascular: S1 S2 regular. Systolic murmur. [facility] Medical History (Updated 10/16/24 @ 09:29 by MARIELENA Weber) Right foot pain PVD (peripheral vascular disease) Atherosclerosis Vitamin B12 deficiency Controlled type 2 diabetes mellitus Paroxysmal atrial fibrillation Overactive bladder Essential hypertension Pure hypercholesterolemia Heart murmur Chronic GERD Cervical spondylosis Anemia Cataract T/A hypertrophy Headache Incontinence Gastrointestinal disorder Diabetes Afib Heart disease Palpitations High blood pressure Surgical History History of cardiac radiofrequency ablation History of left knee replacement H/O colonoscopy H/O: hysterectomy H/O vitrectomy H/O tubal ligation Family History Maternal Grandmother Breast cancer Brother Breast cancer Social History (Updated 04/09/25 @ 09:18 by Charu Ramirez CMA) Household Members: Spouse Housing: House Are you a primary clinical care leader to a significant other at home: No Do you presently have visiting nurse or other home services: No Alcohol intake: former Patient Tobacco Use Status: Never used Tobacco e-Cigarette/Vaping Use: Never Used Second Hand Smoke Exposure: No service: No Current occupational status: retired Current occupational exposures/hazards: No Cognitive needs: No Hearing needs: No Vision needs: No Questionnaire Thrive Questionnaire Date Thrive assessed: 10/16/24 I am a: Patient What is your living situation today?: I choose not to answer this question Within the past 12 months, did the food you bought not last and you didn't have the money to get more?: I choose not to answer this question Within the past 12 months, did you worry whether your food would run out before you got money to buy more?: I choose not to answer this question Do you have trouble paying for medicines?: I choose not to answer this question Do you have trouble getting transportation to medical appointments?: I choose not to answer this question Do you have trouble paying your heating and electricity bill?: I choose not to answer this question Do you have trouble taking care of your child, family member or friend?: I choose not to answer this question Do you have trouble with day-to-day activities such as bathing, preparing meals, shopping, managing finances, etc.?: I choose not to answer this question Are you currently unemployed and looking for a job?: I choose not to answer this question Are you interested in more education?: No Please select the resources that you would like help with: None Currently or been in a relationship where the following occur: I choose not to answer THRIVE Score: 0 AUDIT C Alcohol Use Questionnaire (AUDIT-C) 3. How often do you have six or more drinks on one occasion?: Never Total Score: 0 LUIS-7 AMB Questionnaire LUIS-7 Date LUIS - 7 assessed: 10/16/24 Source: Developed by Drs. Ottoniel Duran, Elana Young, Pierre Garsia and colleagues, with an educational moises from [employer]. Physical exam (Primary Care) Vital Signs: Last Vital Signs Temp 98 F 04/09/25 09:18 Pulse 64 04/09/25 09:37 Resp 15 04/09/25 09:18 BP 122/64 04/09/25 09:18 Pulse Ox 98 04/09/25 09:18 Oxygen Delivery Method Room Air 04/09/25 09:18 BMI result Body Mass Index 24.7 Tobacco/Smoking Status: Tobacco use Status Tobacco use date assessed 04/09/25 04/09/25 09:22 Patient Tobacco Use Status Never used Tobacco 04/09/25 09:18 e-Cigarette/Vaping Use Never Used 04/09/25 09:18 Thrive Assessment: Date of Thrive Assessment Date Thrive assessed 10/16/24 04/09/25 09:15 Currently or been in a relationship where the following occur: I choose not to answer Coding Level of Care Code Est Pt Level 4 (25569) Diagnoses Vitamin B12 deficiency E53.8 Controlled type 2 diabetes mellitus E11.9 Paroxysmal atrial fibrillation I48.0 Overactive bladder N32.81 Essential hypertension I10 Pure hypercholesterolemia E78.00 Chronic GERD K21.9 Other vitamin B12 deficiency anemia D51.8 Anemia type: B12 deficiency Vitamin B12 deficiency anemia type: other B12 deficiency Assessment & Plan Assessment & Plan (1) Vitamin B12 deficiency: Code(s): E53.8 - Deficiency of other specified B group vitamins Category: Medical Plan: Probably secondary to metformin. Continue B12. (2) Controlled type 2 diabetes mellitus: Code(s): E11.9 - Type 2 diabetes mellitus without complications Category: Medical Plan: Hemoglobin a1c is at goal. Discussed pathophysiology of Type II Diabetes Mellitus with the patient in detail.? I explained the [facility] risks and complications associated with uncontrolled diabetes including nephropathy, neuropathy, peripheral vascular disease, retinopathy, increased risk of heart disease and stroke.? Discussed lifestyle modification with the patient. Recommended 30 minutes of moderately vigorous exercise 5 days per week to promote weight loss. Continue eye exams. Continue metformin and glipizide. Patient says sometimes when she takes the extended release glipizide it passes through undigested. We will switch to immediate release. (3) Paroxysmal atrial fibrillation: Code(s): I48.0 - Paroxysmal atrial fibrillation Category: Medical Plan: Followed by Cardiology. Anticoagulated on Eliquis. She has had recent episodes of AFib, and they are discussing another ablation. (4) Overactive bladder: Code(s): N32.81 - Overactive bladder Category: Medical Plan: Continue Myrbetriq. Avoid caffeine. (5) Essential hypertension: Code(s): I10 - Essential (primary) hypertension Category: Medical Plan: Controlled. Continue current medication regimen and low-sodium diet. (6) Pure hypercholesterolemia: Code(s): E78.00 - Pure hypercholesterolemia, unspecified Category: Medical Plan: Continue statin. Recommended avoidance of smoking. Recommended Mediterranean diet. (7) Chronic GERD: Code(s): K21.9 - Gastro-esophageal reflux disease without esophagitis Category: Medical Plan: Continue omeprazole 20 mg daily. Dietary recommendations reviewed. Avoid NSAIDs. (8) Anemia: Code(s): D64.9 - Anemia, unspecified Category: Medical Qualifiers: Anemia type: B12 deficiency Vitamin B12 deficiency anemia type: other B12 deficiency Qualified Code(s): D51.8 - Other vitamin B12 deficiency anemias Plan: Monitor. Continue B12 supplementation. Plan Follow up in 3 months for annual exam. Medications: New glipizide 2.5 mg PO BID 180 tabs 3RF 90 days Discontinued glipizide ER Discontinued Reason: Doctor's Order 5 mg (2 x 2.5 mg) PO DAILY 180 tabs 3RF
[2025-04-09 09:18] VITALS: BP 122/64; PULSE 47; RESP 15; TEMP 36.6; O2SAT 98; BMI 24.7
[2025-04-09 09:37] VITALS: PULSE 64
--- OUTSIDE RECORDS SUMMARY | 2025-04-09 11:22 | XMS_ITS | Encounter Summary ---
Author Organization [facility] Address [address] [place] [address] Care Team Providers Care Sole Assessor Name Role Phone Sarah Coello Primary Care Provider [phone] Encounter Details Date Type Department Care Team (Late st Contact Info) Description 06/26/2024 Lab Requisition [facility] - Main Lab [address] [place] [address] Landon Monae MD [address] [facility] [address] [place] [address] Urinary tract infection, site not [...] Description 05/29/2025 9:00 AM EST Ancillary Procedure [facility] - [address] [place] [address] documented as of this encounter Procedures Procedure Name Priority Date/Time Associated Diagnosis Comments CULTURE URINE Routine 06/26/2024 12:00 AM EST Urinary tract infection, site not specified documented in this encounter Results * Culture urine (06/26/2024 12:00 AM EST) Culture, Urine No growth 06/27/2024 1:[address] [facility] Urine Urine specimen obtained by clean catch procedure / Unknown 06/26/2024 06/26/2024 6:57 PM EST us Landon Monae MD LAB MICROBIOLOGY - GENERA L ORDERABLES Final Result [facility] [address] [place] [address], documented in this encounter Visit Diagnoses Diagnosis Urinary tract infection, site not specified documented in this encounter Care Teams Sole Assessor Relationship Specialty Start Date End Date Sarah Coello PA [address] [place] [address] PCP - General 06/19/23 documented as of this encounter
--- OUTSIDE RECORDS SUMMARY | 2025-04-09 11:22 | XMS_ITS | Encounter Summary ---
Author Organization [facility] Address [address] [place] [address] Care Team Providers Care Switchboard Operator Receptionist Name Role Phone Sarah Coello Primary Care Provider [phone] Encounter Details Date Type Department Care Team (Late st Contact Info) Description 07/03/[address] [facility] - Main Lab [address] [address] [place] [address] Landon Monae MD 100 [facility] 120 [place] [address] Benign essential microscopic hematuria Social [...] Description 05/29/2025 9:00 AM EST Ancillary Procedure [facility] - [address] [address] documented as of this encounter Procedures Procedure Name Priority Date/Time Associated Diagnosis Comments AP OUTSIDE CONSULT Routine 06/26/2024 12 :00 AM EST Benign essential microscopic hematuria documented in this encounter Results * Anatomic pathology outside consult (06/26/2024 12:00 AM EST) Final Diagnosis A. Urine, Voided, ([id number]): Negative for high grade urothelial carcinoma. Results of UroVysion fluorescence in situ hybridization (FISH) testing: CEP3: Normal CEP7: Normal CEP17: Normal LSI 9p21: Normal Interpretation: Normal profile Controls stained appropriately. Note: The results are intended as a screening device and should be interpreted in association with other clinical and pathological findings. 07/09/2024 2:36 PM [facility] Clinical Information Benign essential microscopic hematuria R31.1 Urine Cytology/FISH (now) 07/09/2024 2:36 PM EST [facility] Gross Description A. Urine, Voided, ([id number]): Received one ThinPrep slide for cytology and one ThinPrep slide for UroVysion FISH 07/09/2024 2:36 PM [facility] Disclaimer Unless otherwise specified, all tissue is 10% NB formalin fixed and paraffin embedded. Technical pathology services provided by [facility] at [address], [place] [address] (CLIA #[id number]/Enid Acevedo MD, Threading Machine Setter) 07/09/2024 2:36 PM [facility] Tissue Urine specimen from urethra / Unknown 06/26/2024 07/03/2024 12:00 PM EST us Landon Monae MD LAB PATHOLOGY ORDERABLES Final Result [facility] [address] [place] [address], documented in this encounter Visit Diagnoses Diagnosis Benign essential microscopic hematuria documented in this encounter Care Teams Switchboard Operator Receptionist Relationship Specialty Start Date End Date Sarah Coello PA [address] [place] [address] PCP - General 06/19/23 documented as of this encounter
--- OUTSIDE RECORDS SUMMARY | 2025-04-09 11:22 | XMS_ITS | Patient Health Record ---
Author Organization [facility] Address [address] [facility] [address] [place] [address] Care Team Providers Care Rehabilitation Specialist Name Role Phone Chelsea Mcdaniel Unavailable [phone] Allergies Allergen (clinical drug ingredient) Drug/Non Drug [...] UROBILINOGEN NEG BILIRUBIN NEG BLOOD LARGE Urinalysis, Complete-[id number] Reviewed date:05/15/2024 12:46:26 PM Interpretation: Performing Lab:[facility]lee Barry, [address] [place] [address], Phone - [phone], Director - [facility] Notes/Report: Clinical Information:SRC: URINE Clinical Information:SRC: URINE Specific [place] 1.014 1.005-1.030 pH 7.5 5.0-7.5 Urine-Color Yellow [...] /lpf Bacteria Many None seen/Few Urine Culture, Routine-[id number] Reviewed date:05/15/2024 02:10:31 PM Interpretation: Performing Lab:[facility], [address] [facility], Phone - [phone], Director - [facility] Notes/Report: Clinical Information:SRC: URINE [...] Tetracycline S Tobramycin S Trimethoprim/Sulfa S Urinalysis, Complete-[id number] Reviewed date:05/30/2024 02:42:33 PM Interpretation: Performing Lab:[facility], [address] [facility], Phone - [phone], Director - [facility] Notes/Report: Clinical Information:SRC: Clinical Information:SRC: Specific [place] 1.018 1.005-1.030 pH 6.5 5.0-7.5 Urine-Color [place] Yellow Appearance Cloudy Clear WBC Esterase 1+ [...] Bacteria None seen None seen/Few Urine Culture, Routine-[id number] 7 Reviewed date:05/26/2024 08:15:32 AM Interpretation: Performing Lab:[facility] [place], [address] [facility], [place], Phone - [phone], Director - [facility] Notes/Report: Clinical Information:SRC: Clinical Information:SRC: Urine Culture, Routine Final report Result 1 No growth PDF Report Reviewed date:05/26/2024 08:13:38 AM Interpretation: Performing Lab:[facility] [place], [address] [place] [address], [place], Phone - [phone], Director - [facility] Notes/Report: Clinical Information:SRC:UC PDF Report Reviewed date:06/19/2024 06:31:52 PM Interpretation: Performing Lab:[facility] [place], [address] [place] [address], [place], Phone - [phone], Director - [facility] Notes/Report: Urine Culture, Routine-59501 7 Reviewed date:06/19/2024 06:32:07 PM Interpretation: Performing Lab:[facility] [place], [address] [place] [address], [place], Phone - [phone], Director - [facility] Notes/Report: Urine Culture, Routine Final report Result 1 No growth Urinalysis, Complete-[id number] Reviewed date:06/20/2024 08:51:58 AM Interpretation: Performing Lab:[facility] [place], [address] [place] [address], [place], Phone - [phone], Director - [facility] Notes/Report: Specific [place] 1.013 1.005-1.030 pH 5.5 5.0-7.5 Urine-Color Yellow [...] Reviewed date:05/15/2024 12:29:03 PM Interpretation: Performing Lab:[facility] [place], [address], [place], Phone - [phone], Director - [facility] Notes/Report: Clinical Information:SRC: URINE Reason For Referral No Information Medications Medication [...] Status Risk Notes Problem Postmenopausal atrophic vaginitis (32686536) Postmenopausal atrophic vaginitis (N95.2) Active confirmed Problem Incomplete uterovaginal prolapse (519727449) Incomplete uterovaginal prolapse (N81.2) Active confirmed Problem Herniation of rectum into vagina (985829936) Rectocele (N81.6) Active confirmed Problem Urinary incontinence (680008986) Unspecified urinary incontinence (R32) Active confirmed Problem Disorder of bone (86150389) Other specified disorders of bone density and structure, 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) Active confirmed Problem Cystocele (653422327) Cystocele, unspecified (N81.10) Active confirmed Problem Uterovaginal prolapse (40813594) Uterovaginal prolapse, unspecified (N81.4) Active confirmed Problem Functional urinary incontinence (376806017) Functional urinary incontinence (R39.81) Active confirmed Problem Type II diabetes mellitus without complication (535347564) Diabetes mellitus without mention of complication, type II or unspecified type, not stated as uncontrolled (250.00) Active confirmed Major Problem Hyperlipidemia (67500478) Other and unspecified hyperlipidemia (272.4) Active confirmed Major Problem Benign essential hypertension (5613690) Essential hypertension, benign (401.1) Active confirmed Major Problem Atrial fibrillation (99733399) Atrial fibrillation (427.31) Active confirmed Major Problem Menopausal symptom (03334410) Symptomatic menopausal or female climacteric states (627.2) Active confirmed Major Problem Postmenopausal atrophic vaginitis (04198284) Postmenopausal atrophic vaginitis (627.3) Active confirmed Diag Problem Gynecological examination normal (448748822169590) Routine gynecological examination (V72.31) Active confirmed Major Problem Screening for malignant neoplasm of colon (913917989) Special screening for malignant neoplasms, colon (V76.51) Active confirmed Major Vital Signs Temperature 98.1 degrees Fahrenheit 06/17/2024 Blood pressure diastolic 70 mm Hg 06/17/2024 Height 61.25 in 06/17/2024 Blood pressure systolic 118 mm Hg 06/17/2024 Weight 137 lbs 06/17/2024 BMI 25.67 kg/m2 06/17/2024 Encounters Encounter Location Date Provider Diagnosis Total [address] [address] 05/13/2024 Chelsea Mcdaniel Hematuria, unspecified R31.9 and Urgency of urination R39.[address] [place] [address] 06/17/2024 Chelsea Mcdaniel Other microscopic hematuria R31.29 [address] [facility] [address] [place] [address] 05/15/2024 Chelsea Mcdaniel Total [address] [address] 05/15/2024 Chelsea Mcdaniel Urinary tract infection, site not specified N39.[address] [address] 05/29/2024 Chelsea Mcdaniel Total [address] [address] 06/16/2024 Chelsea Perodmoueva Assessments Encounter Date Diagnosis (ICD Code) Assessment [...] SHE UNDERSTOOD. REASSURED HER THAT HER MANAGER OF GLOBAL EXAM SHOWED NO BLOOD PER VAGINA CONFIRMED [...] Name:Chelsea Perdomo margaritaanna, 06/11/2025 11:00:00 AM, [address], [address], [place], [address], Insurance Providers Payer Name Payer Address Payer Phone Subscriber Number Group Number Insured Name Patient Relationship to Insured Coverage Start Date Coverage End Date [employer]AGE [address] [place] [address] [id number] RESHMA KENNEDY Self - patient is the [...]
--- OUTSIDE RECORDS SUMMARY | 2025-04-09 11:23 | XMS_ITS | Encounter Summary ---
Author Organization [facility] Address [address] [place] [address] Care Team Providers Care Bicycle Repair Technician Name Role Phone Sarah Coello Primary Care Provider [phone] Encounter Details Date Type Department Care Team (Late st Contact Info) Description 04/09/2025 Results Follow-Up [facility] [place] [address] [address] Fany Suarez, SY [address] [place] [address] [place] [address] Social History Tobacco Use Types Packs/Day Years [...] Department Care Team (Late Contact Info) Description 05/29/2025 9:00 AM EST Ancillary Procedure [facility] [address] [phone] documented as of this encounter Visit Diagnoses Not on filedocumented in this encounter Care Teams Bicycle Repair Technician Relationship Specialty Start Date End Date Sarah Coello PA [address] [place] [address] [place] [id number] PCP - General 06/19/23 documented as of this encounter
--- OUTSIDE RECORDS SUMMARY | 2025-04-09 11:23 | XMS_ITS | Clinical Summary ---
Author Organization [facility] [employer] [facility] Address [address] [place] [address] Phone Care Team Providers Care News Assignment Editor Name Role Phone Sarah Coello Primary Care Provider [phone] Allergies Active Allergy Reactions Criticality Noted Date [...] anticoagulation with Eliquis due to an elevated [id number]-[id number] score based on age over 75, hypertension, [...] or documented recurrences. Due to her high YFT0QG5-RPGc score we have elected to continue with Cha and we did have a discussion today regarding the presence of the Watchman device but she does not have any clear rationale for proceeding. She has been followed by a equipment mechanic for a small area that is at risk for bleeding. We talked about the numerous developments in atrial fibrillation with PSA should she need any recurrent ablation but for now we will continue her healthy lifestyle and monitoring for any recurrence clinically. Diverticulosis 02/10/2020 Hiatal hernia 02/10/2020 GI bleed 02/10/2020 Compression fracture of T12 vertebra ([facility] V24, [facility] V28) 06/13/2019 B12 deficiency 10/01/2018 Iron deficiency anemia 10/01/2018 Chronic seasonal allergic rhinitis 09/06/2017 Lacunar infarction ([facility] V24, [facility] V28) Controlled type 2 diabetes m ellitus without complication, without long-term current use of insulin ([facility] V24, [facility] V28) 05/03/2016 HSV infection 07/06/2014 Osteopenia 04/20/2014 Compression fracture of T6 v ertebra ([facility] V24, [facility] V28) 04/20/2014 Valvular heart disease 08/08/2011 Overview [...] Encounters Date Type Department Care Team Description 04/09/2025 Results Follow-Up [facility] - [address] [place] [address] Fany Suarez NP 03/17/2025 1:40 PM EDT Office Visit [facility] [address] [place] [address] Fany Suarez NP Atrial fibrillation, unspecified type (CMS/HCC V24, CMS/HCC [...] TONSILLECTOMY ADENOIDECTOMY, BILATERAL MYRINGOTOMY AND TUBES PROCEDURE: [place] TONSILLECTOMY & ADENOIDECTOMY <AGE 13 COLONOSCOPY 03/31/2010 PROCEDURE: FL COLONOSCOPY FLX DX W/COLLJ SPEC WHEN PFRMD OTHER SURGICAL HISTORY 10/30/2018 N/A PROCEDURE: COLONOSCOPY LESION REMOVAL; COMMENT: with EGD- Dr. Maldonado TOTAL KNEE ARTHROPLASTY 04/10/2022 Left PROCEDURE: FL ARTHRP KNE CONDYLE&PLATU MEDIAL&LAT COMPARTMENTS Medical History [...] Description 05/29/2025 9:00 AM EST Ancillary Procedure [facility] - [address] [place] [address] Health Maintenance Due Date Last [...] 03/01/2022 Depression Screening 05/21/2024 COVID-19 Vaccine ( - season) 2025 08/17/2020, 07/21/2020 Influenza Vaccine (#1) [...] A1C Routine 03/01/2022 LIPID PANEL Routine 03/01/2022 HM URINE ALBUMIN CREATININE RATIO Routine 01/03/2021 from Last 3 Months or Most Recently Relevant to Health Maintenance Results * CBC auto differential (04/07/2025 10:35 AM EST) WBC 7.1 3.4 - 10.8 x10E3/uL [facility] [...] 04/08/2025 3:06 AM EST Performed at: 01 - [facility] [id number] Scientific Database Curator: Estela Garg MD, Phone: [phone] us Fany Macdonald Denisebaosusannah FIELD CONTACT PERSON LAB BLOOD ORDERABLES Final R esult [facility] 1 * (ABNORMAL) Comprehensive metabolic panel (04/07/2025 10:35 AM EST) [facility] Glucose 194(H) 70 - 99 mg/dL [facility] [...] 3:06 AM EST Performed at: 02 - [facility] [address], [place], [place] [id number] Scientific Database Curator: Matthias Morales MD, Phone: [phone] Fany Suarez FIELD CONTACT PERSON LAB BLOOD ORDERABLES Final R esult [facility] 2 * ECG 12 lead (03/17/2025 2:21 PM EDT) Ventricular Rate ECG 59 BPM GEMUSE Atrial Rate 59 BPM GEMUSE P-R Interval 232 ms GEMUSE QRS Duration 84 ms GEMUSE Q-T Interval 418 ms GEMUSE QTc 413 ms GEMUSE P Wave [place] 59 degrees GEMUSE R [place] -23 degrees GEMUSE T [place] 19 degrees GEMUSE ECG Interpretation Sinus bradycardia with 1st degree A-V block Otherwise normal ECG When compared with ECG of 05-AUG-2024 09:20, No significant change was found GEMUSE 03/17/2025 1:46 PM EDT Fany Suarez FIELD CONTACT PERSON ECG ORDERABLES Final Result Performing Organization Address City/[facility]/ZIP Co de Phone Number GEMUSE * DXA BONE DENSITY STUDY 1+ [...] to have osteopenia by WHO criteria. [facility] Department of Internal Medicine recommends using [...] screening schedule based on ambrosio Stewart al., [facility] June 08, 2011 for patients with osteopenia [...] to have osteopenia by WHO criteria. [facility] Department of Internal Medicine recommendsusing National [...] alternative screening schedule based on luis Stewart., [place] 2011 for patients with osteopenia (based on hip BMD T-score) is as follows: * advanced osteopenia (T scores -2.00 to -2.49), BMD testing every year * moderate osteopenia (T scores -1.50 to -1.99), BMD testing every 5years mild osteopenia or normal BMD (T scores -1.50 and higher), BMD testingevery 15 years Result [facility] Chelsea Mcdaniel MD IMG DXA PROCEDURES Final R esult * (ABNORMAL) Hemoglobin A1c (03/01/2022) [facility] Hemoglobin A1C 7.1(A) <=6.5 % Blood Venous blood specimen / Unknown Result [facility] Provider LAB BLOOD ORDERABLES Maribell l Result * Lipid panel (03/01/2022) [facility] LDL/HDL Ratio 3 0 - 3 Triglycerides 130 0 - 150 mg/dL Cholesterol 152 0 - 200 mg/dL HDL 51 >=40 mg/dL LDL Cholesterol 75 0 - 100 mg/dL Blood Venous blood specimen / Unknown Result [facility] Provider LAB BLOOD ORDERABLES Maribell l Result * Urine Albumin Creatinine Ratio (01/03/2021) [facility] Urine Albumin Creatinine Ratio abstracted Result [facility] Provider HEALTH MAINTENANCE Final Result from Last 3 Months or Most Recently Relevant to Health Maintenance Insurance [employer] [place] MED[employer] ADVANTAGE [address] [place] [address] Advance Directives Documents on File Type Date Recorded 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
== END 2025-04-09 09:56 | disposition home or self-care (01) ==
LOC: HO.HMCFM 09:09
PROVIDERS: PCP Physician Assistant Medical; Visit Provider Physician Assistant Medical
DX: E53.8 Deficiency of other specified B group vitamins (principal); E11.9 Type 2 diabetes mellitus without complications; I48.0 Paroxysmal atrial fibrillation; N32.81 Overactive bladder; I10 Essential (primary) hypertension; E78.00 Pure hypercholesterolemia, unspecified; K21.9 Gastro-esophageal reflux disease without esophagitis; D51.8 Other vitamin B12 deficiency anemias

== ENCOUNTER → 2025-04-09 09:08 | Outpatient (BNVA) | payer MEDICARE, SELFPAY | PROVIDERS: PCP Physician Assistant Medical; Visit Provider Physician Assistant Medical | DX: E11.9 Type 2 diabetes mellitus without complications (principal); K21.9 Gastro-esophageal reflux disease without esophagitis; N32.81 Overactive bladder; M17.0 Bilateral primary osteoarthritis of knee; I48.0 Paroxysmal atrial fibrillation; E78.00 Pure hypercholesterolemia, unspecified; D51.8 Other vitamin B12 deficiency anemias | CPT/HCPCS: 99212 ==